=== PATIENT | female | born 1940 | race Caucasian/White ===

== ENCOUNTER 2020-05-26 14:10 | Emergency (ER) | payer OTHER ==
--- OUTSIDE RECORDS SUMMARY | 2020-05-26 14:12 | XMS REPORT | Continuity of Care Document ---
:1940 Author Organization [facility] t Address [address] [place] [address] Care Team Providers Name Role Phone Unavailable Unavailable Unavailable Problems This patient has no known problems. Allergies, Adverse Reactions, Alerts This patient has no known allergies or adverse reactions. Medications Ordered Filled Start Stop Current Ordering Indication Dosage Frequency Signature Comments Components Source Medication Medication Date Date Medication? Clinician (SIG) Name Name Amlodipine Amlodipine Yes Jes [address] [facility] Besylate Besylate [facility] Nasonex Nasonex Yes Jes [address] [facility] in each [facility] Zantac Zantac Yes Jes [address] [facility] bedtime [facility] Tessalon Tessalon Yes Jes [address] [facility] as [facility] Vitamin D3 Vitamin D3 Yes Jes [address] [facility] (otc) [facility] Vitamin B Vitamin B Yes Jes not [facility] 12 12 [facility] defined [facility] Lisinopril Lisinopril Yes Jes [address] [facility] Zina Zina Yes Jes not [facility] defined [facility] Promethazin Promethazin Yes Jes [address] [facility] e-DM e-DM [facility] needed [facility] Hydrochloro Hydrochloro Yes Jes [address] [facility] thiazide thiazide [facility] in the [facility] Zoloft Zoloft Yes Jes [address] [facility] Protonix Protonix Yes Jes [address] [facility] Metoprolol Metoprolol Yes Jes [address] [facility] Tartrate Tartrate [facility] with food [facility] Zestoretic Zestoretic Yes Jes [address] [facility] Atorvastati Atorvastati Yes Jes [address] [facility] n Calcium n Calcium [facility] 81 Aspir-81 Yes Jes [address] [facility] Xarelto Xarelto Yes Jes [address] [facility] with food [facility] Astelin Astelin Yes Jse [address] [facility] each [facility] Fenofibrate Fenofibrate Yes Jes [address] [facility] with food [facility] Amoxicillin Amoxicillin Yes Jes not [facility] -Pot -Pot [facility] defined [facility] Clavulan[facility] Losartan Losartan Yes Jes [address] Potassium Potassium [facility] Pravastatin Pravastatin Yes Jes [address] [facility] Sodium Sodium [facility] Prozac Prozac Yes Jes [facility] ProAir HFA ProAir HFA Yes Jes [address] [facility] needed [facility] Procedures This patient has no known procedures. Encounters Start End Encounter Admission Attending Care Care Encounter Source Date/Time Date/Time Type Type Clinicians Facility Department ID 2019-11-27 2019-11-27 Outpatient [facility] [id number] [facility] 2019-09-16 2019-09-16 [facility] [id number] [facility] 23:29[facility]00 23:29:00 t [facility] 2019-09-12 2019-09-12 [facility] [id number] [facility] 23:44:00 23:44:00 t [facility] 2019-09-11 2019-09-11 [facility] [id number] [facility] 08:40:00 08:40:00 t [facility] 2019-08-04 2019-08-04 [facility] [id number] [facility] 13:59:00 13:59:00 t [facility] 2019-06-08 2019-06-08 [facility] [id number] [facility] 14:15:00 14:15:00 t [facility] 2019-03-11 2019-03-11 [facility] [id number] [facility] 11:30:00 11:30:00 t [facility] 2018-06-18 2018-06-18 [facility] [id number] [facility] 15:00:00 15:00:00 t [facility] Medicine Medicine Outpati [facility] Clinics 2018-06-13 2018-06-13 [facility] [id number] [facility] 00[facility]23:00 00:23:00 t [facility] Medicine Medicine Outpat[facility] Clin[facility] 2018-05-19 2018-05-19 [facility] [id number] [facility] 17:31:00 17:31:00 t [facility] 2018-05-19 2018-05-19 [facility] [id number] [facility] 10[facility]00:00 10:00:00 t [facility] 2018-03-07 2018-03-07 [facility] [id number] [facility] 14[facility]00:00 14:00:00 [facility] 2018-02-06 2018-02-06 [facility] [id number] [facility] 10:45:00 10:45:00 [facility] 2017-11-18 2017-11-18 [facility] [id number] [facility] 14:02:00 14:02:00 [facility] 2017-10-24 2017-10-24 [facility] [id number] [facility] 16:00:00 16:00:00 [facility] 2017-08-19 2017-08-19 [facility] [id number] [facility] 11:54:00 11:54:00 [facility] 2017-07-17 2017-07-17 [facility] [id number] [facility] 10:49:00 10:49:00 [facility] 2017-07-10 2017-07-10 [facility] [id number] [facility] 13:46:00 13:46:00 [facility] 2017-07-09 2017-07-09 [facility] [id number] [facility] 09:30:00 09:30:00 [facility] Results This patient has no known results.
--- NOTE | 2020-05-26 15:39 | RAD REPORT ---
EXAM DESCRIPTION: RAD - Foot Left 3 View - 05/26/2020 3:21 pm CLINICAL HISTORY: Left Foot pain status post injury FINDINGS: No fracture or dislocation is seen. Large calcaneal spurs
--- NOTE | 2020-05-26 16:26 | ER ---
Nurse's Notes [facility] Name: Gladys Kapoor Age: 80 yrs Sex: Female : 1940 Arrival Date: 05/26/2020 Time: 14:14 Bed 25 Private MD: Diagnosis: Strain of intrinsic muscle and tendon at ankle and foot level Presentation: 05/26 14:33 Chief complaint: Patient states: L foot pain continues from a fall 3 weeks ago. ll1 Coronavirus screen: Client denies travel out of the [place] in the last 14 days. At this time, the client does not indicate any symptoms associated with coronavirus-19. Ebola Screen: Patient denies travel to an Ebola-affected area in the 21 days before illness onset. Initial Sepsis Screen: Does the patient meet any 2 criteria? No. Patient's initial sepsis screen is negative. Does the patient have a suspected source of infection? Yes: Bone or joint infection. Risk Assessment: Do you want to hurt yourself or someone else? Patient reports no desire to harm self or others. Onset of symptoms was May 05, 2020. 14:33 Method Of Arrival: Ambulatory ll1 14:33 Acuity: TATA 4 ll1 Historical: - Allergies: 14:34 No Known Allergies; ll1 - PMHx: 14:34 Depression; Hypertension; Ulcers; ll1 14:35 A fib; ll1 - PSHx: 14:34 Hysterectomy; Cholecystectomy; Knee surgery; ll1 - Immunization history:: Flu vaccine is not up to date. - Social history:: Smoking status: Patient denies any tobacco usage or history of. Screenin:20 Abuse screen: Denies threats or abuse. Denies injuries from another. Nutritional ss screening: No deficits noted. Tuberculosis screening: Never had TB. Fall Risk None identified. Assessment: 16:20 General: Appears in no apparent distress. comfortable, Behavior is calm, cooperative, ss Denies fever, feeling ill, fatigue, chills. Pain: Complains of pain in left ankle Pain currently is 4 out of 10 on a pain scale. Quality of pain is described as aching, Is continuous. Neuro: Level of Consciousness is awake, alert, obeys commands, Oriented to person, place, time, situation. Cardiovascular: Capillary refill < 3 seconds is brisk in bilateral fingers. Respiratory: Airway is patent Respiratory effort is even, unlabored, Respiratory pattern is regular, symmetrical. GI: Abdomen is non-distended. : No signs and/or symptoms were reported regarding the genitourinary system. EENT: Nares are clear Oral mucosa is moist. Throat is clear. Derm: Skin is intact, is healthy with good turgor, Skin is dry, Skin is pink, warm \T\ dry. normal. Musculoskeletal: Circulation, motion, and sensation intact. Range of motion: intact in all extremities, Swelling absent. Vital Signs: 14:33 BP 166 / 70; Pulse 54; Resp 17; Temp 97.6; Pulse Ox 99% ; Weight 84.82 kg; Height 5 ft. ll1 5 in. (165.10 cm); Pain 5/10; 16:12 BP 193 / 75 LA Sitting (auto/reg); Pulse 50; Pulse Ox 100% on R/A; Pain 4/10; jp3 14:33 Body Mass Index 31.12 (84.82 kg, 165.10 cm) ll1 ED Course: 14:14 Patient arrived in ED. ds1 14:34 Triage completed. ll1 14:35 Arm band placed on. ll1 15:21 Foot Left 3 View XRAY In Process Unspecified. EDMS 16:05 Goldy Palafox PA is PHCP. [facility] 16:05 Sriram Lanza MD is Attending Physician. [facility] 16:16 Jasmeet wrap to left ankle. jp3 16:20 Patient has correct armband on for positive identification. Bed in low position. ss 16:20 No provider procedures requiring assistance completed. Patient did not have IV access ss during this emergency room visit. 16:25 Malick Silva DPM is Referral Physician. [facility] 16:41 Cristina Rodriguez RN is Primary Nurse. ss Administered Medications: No medications were administered Outcome: 16:20 Discharged to home ambulatory. ss 16:20 Condition: good 16:20 Discharge instructions given to patient, Instructed on discharge instructions, follow up and referral plans. Demonstrated understanding of instructions, follow-up care. 16:25 Discharge ordered by . [facility] 16:43 Patient left the ED. ss Signatures: Dispatcher [employer] EDMS Goldy Palafox PA PA Shira Foster ds1 Cristina Rodriguez RN RN ss Aryan Freire jp3 Ramona Angulo, RN RN ll1
--- NOTE | 2020-05-26 16:26 | EDPHYS ---
Physician Documentation [facility] Name: Gladys Kapoor Age: 80 yrs Sex: Female : 1940 Arrival Date: 05/26/2020 Time: 14:14 Bed 25 Private MD: ED Physician Sriram Lanza HPI: 05/26 16:20 This 80 yrs old Female presents to ER via Ambulatory with complaints of Fall jmm Injury. 16:20 The patient presents with an injury, pain. Onset: The symptoms/episode began/occurred jmm acutely, 3 week(s) ago. Modifying factors: The symptoms are alleviated by nothing, the symptoms are aggravated by nothing. Associated signs and symptoms: Pertinent positives: swelling. Patient states she had a fall 3 weeks ago. Continues to have swelling to the left foot. Patient denies calf swelling, sob, cp. . Historical: - Allergies: 14:34 No Known Allergies; ll1 - PMHx: 14:34 Depression; Hypertension; Ulcers; ll1 14:35 A fib; ll1 - PSHx: 14:34 Hysterectomy; Cholecystectomy; Knee surgery; ll1 - Immunization history:: Flu vaccine is not up to date. - Social history:: Smoking status: Patient denies any tobacco usage or history of. ROS: 16:20 Constitutional: Negative for fever, chills, and weight loss, Cardiovascular: Negative jmm for chest pain, palpitations, and edema, Respiratory: Negative for shortness of breath, cough, wheezing, and pleuritic chest pain. 16:20 MS/extremity: Positive for swelling. 16:20 All other systems are negative. Exam: 16:20 Constitutional: This is a well developed, well nourished patient who is awake, alert, jmm and in no acute distress. Head/Face: atraumatic. Eyes: EOMI, no conjunctival erythema appreciated ENT: Moist Mucus Membranes Neck: Trachea midline, Supple Chest/axilla: Normal chest wall appearance and motion. Cardiovascular: Regular rate and rhythm. No edema appreciated Respiratory: Normal respirations, no respiratory distress appreciated Abdomen/GI: Non distended, soft Back: Normal ROM Skin: General appearance color normal 16:20 Musculoskeletal/extremity: swelling noted to the left foot, pain on dorsal surface, full dorsalis pulse, no swelling noted to the left calf. 16:20 Skin: Appearance: Color: normal in color. 16:20 Neuro: Orientation: is normal, Mentation: is normal, Memory: is normal. 16:20 Psych: Behavior/mood is pleasant, cooperative. Vital Signs: 14:33 BP 166 / 70; Pulse 54; Resp 17; Temp 97.6; Pulse Ox 99% ; Weight 84.82 kg; Height 5 ft. ll1 5 in. (165.10 cm); Pain 5/10; 16:12 BP 193 / 75 LA Sitting (auto/reg); Pulse 50; Pulse Ox 100% on R/A; Pain 4/10; jp3 14:33 Body Mass Index 31.12 (84.82 kg, 165.10 cm) ll1 MDM: 16:17 Patient medically screened. [facility] 16:23 Data reviewed: vital signs, nurses notes. Counseling: I had a detailed discussion with wayne the patient and/or guardian regarding: the historical points, exam findings, and any diagnostic results supporting the discharge/admit diagnosis, radiology results, the need for outpatient follow up, to return to the emergency department if symptoms worsen or persist or if there are any questions or concerns that arise at home. ED course: Xray is negative. Patient is advised to follow up with podiatry. Otherwise given strict return precautions if she develops calf swelling, cp, or sob. Patient understood and agrees with the plan of care. . 05/26 14:43 Order name: Foot Left 3 View XRAY; Complete Time: 16:05 kb Administered Medications: No medications were administered Disposition: 05/27 06:47 Co-signature as Attending Physician, Sriram Lanza MD I agree with the assessment and kdr plan of care. Disposition: 05/26/20 16:25 Discharged to Home. Impression: Strain of intrinsic muscle and tendon at ankle and foot level. - Condition is Stable. - Discharge Instructions: Foot Sprain. - Medication Reconciliation Form, Thank You Letter, Antibiotic Education, Prescription Opioid Use form. - Follow up: Malick Silva DPM; When: 2 - 3 days; Reason: Recheck today's complaints, Continuance of care, Re-evaluation by your physician. Signatures: Dispatcher [employer] EDMS Sriram Lanza MD MD kdr Mickail, Joel, PA PA jmm Smirch, Shelby, RN RN ss Ramona Angulo RN RN ll1 Corrections: (The following items were deleted from the chart) 05/26 16:43 16:25 05/26/2020 16:25 Discharged to Home. Impression: Strain of intrinsic muscle and ss tendon at ankle and foot level. Condition is Stable. Forms are Medication Reconciliation Form, Thank You Letter, Antibiotic Education, Prescription Opioid Use. Follow up: Dr. Malick Silva; When: 2 - 3 days; Reason: Recheck today's complaints, Continuance of care, Re-evaluation by your physician. wayne
[2020-05-26 16:47] VITALS: TEMP 97.6
[2020-05-26 16:49] VITALS: BP 193/75; O2SAT 100
== END 2020-05-26 16:43 | disposition home or self-care (01) ==
LOC: ER 14:10
DX: S96.212A Strain of intrinsic muscle and tendon at ankle and foot level, left foot, initial encounter (principal); W19.XXXA Unspecified fall, initial encounter; Y93.9 Activity, unspecified; Y92.9 Unspecified place or not applicable; I10 Essential (primary) hypertension
CPT/HCPCS: 99283

== ENCOUNTER 2022-01-08 01:48 | Observation (INO) | payer OTHER ==
--- OUTSIDE RECORDS SUMMARY | 2022-01-08 01:51 | XMS REPORT | Clinical Summary ---
:1940 Author Organization [facility] MD [facility] Center Address [address] [place] [address] Care Team Providers Name Role Phone Bj Davenport MD Unavailable Israel Haque MD Primary Care Provider Allergies No known active allergies Medications Medication Sig Dispensed Refills Start Date End Date Status hydroCHLOROthiazide Take 1 tablet 0 07/01/2020 Active (HYDRODIURIL) 12.5 mg by mouth tablet daily. metoprolol tartrate Take 25 mg by 0 11/08/2018 Active (LOPRESSOR) 25 mg tablet mouth daily. hydrALAZINE (APRESOLINE) Take 1 tablet 0 08/22/2020 Active 10 mg tablet by mouth twice daily. rosuvastatin (CRESTOR) 20 Take 20 mg by 0 04/04/2020 Active mg tablet mouth daily. traMADol (ULTRAM) 50 mg Take 1 tablet 0 07/07/2020 Active tablet by mouth as needed. sertraline (ZOLOFT) 25 mg Take 1 tablet 0 07/10/2020 Active tablet by mouth daily. amLODIPine (NORVASC) 5 mg Take 1 tablet 0 06/20/2020 Active tablet by mouth daily. famotidine (PEPCID) 40 mg Take 1 tablet 0 06/20/2020 Active tablet by mouth daily. acetaminophen (Tylenol Take 650 mg 0 Active Arthritis Pain) 650 MG CR by mouth tablet every 8 (eight) hours as needed for mild pain. ibuprofen 200 mg cap Take 3 0 Active capsules by mouth as needed. loperamide (Imodium A-D) Take 2 mg by 0 Active 2 mg tablet mouth daily. pancrelipase (Creon) Take by mouth 240 capsule 2 08/26/2020 Active 12,000 units-38,000 1-2 with units-60,000 units meals, 1 with capsuleIndications: Cyst snacks. of pancreas, Exocrine pancreatic insufficiency pancrelipase (Creon) Take 1-2 po 240 capsule 11 08/31/2020 Active 12,000 units-38,000 with meals, 1 units-60,000 units po with capsuleIndications: Cyst snacks of pancreas, Exocrine pancreatic insufficiency losartan (COZAAR) 100 mg Take 100 mg 0 04/01/2020 tablet by mouth 2 daily. 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 Chronic kidney disease Hypertension Arrhythmia Gastroesophageal reflux disease Anemia Social History Tobacco Use Types Packs/Day Years Used Date Smoking Tobacco: Former Cigarettes 10 Smokeless Tobacco: Never Comments: social use Alcohol Use Standard Drinks/Week Comments Yes 7 (1 standard drink = 0.6 oz pure alcoho l) Sex Assigned at Date Recorded Not on file Job Start Date Occupation Industry Not on file Not on file Not on file Obstetrics History Last Filed Vital Signs Not on file Plan of Treatment Health Maintenance Due Date Last Done Comments COVID-19 Vaccination (#1) 1940 Results Not on fileafter 01/08/2021 Insurance Payer Benefit Plan / Subscriber ID Effective Dates Phone Addre ss Type Group HUMANA HUMANA CHOICE [id number] 2020-Presen [address] [address] Medicare MEDICARE [place] [address] Care Teams 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
--- OUTSIDE RECORDS SUMMARY | 2022-01-08 01:52 | XMS REPORT | Continuity of Care Document ---
:1940 Author Organization [facility] t Address [address] [place] [address] Care Team Providers Name Role Phone Elisha Haque MD Primary Care Physician Vickey Seymour Attending Clinician Unavailable Jes Singh Attending Clinician Unavailable SYSTEM, PROVIDER NOT IN Attending Clinician Unavailable Robbie Choi Attending Clinician Unavailable Bogdan Perkins Attending Clinician Unavailable ELISHA HAQUE Attending Clinician Unavailable CURTIS STEPHEN Attending Clinician Unavailable Robbie Choi Admitting Clinician Unavailable Payers Payer Name Policy Type Policy Number Effective Date Expiration Date S ource [employer] MEDICARE C1 [id number] Common Sp shirlene [facility] Problems Condition Condition Condition Status Onset Resolution Last Treating Co mments Source Name Details Category Date Date Treatment Clinician Date 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 7-13 ity of 00:00: [place] 00 MD [facility] Chronic Chronic Problem Active Common diarrhea diarrhea [facility] Heel pain Heel pain Problem Active Com mon [facility] [id number] Muscle Problem Active Common cramps [facility] Hyperlipid Hyperlipem Problem Active C ommon aemia ia [facility] Gastroesop GERD Problem Active Commo n hageal (gastroeso Spirit reflux [facility] disease reflux St disease) [facility] Peripheral Peripheral Problem Active C ommon edema edema [facility] [id number] Elevated Problem Active Commo n blood uric [facility] acid level [facility] [id number] Serum Problem Active Common carbon [facility] dioxide - CHI decreased [facility] [id number] Elevated Problem Active Comm on LFTs [facility] [id number] Abdominal Problem Active Comm on pain, Spirit unspecifie - [facility]I d [facility] Atrial Atrial Problem Active Common fibrillati fibrillati Sp shirlene on on [facility] 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 [facility] Seasonal Seasonal Problem Active Commo n allergy allergies [facility] [id number] Hypersomni Problem Active Com mon a [facility] [id number] History of Problem Active Co mmon atrial Spirit fibrillati - [facility]I on [facility] [id number] Fatigue, Problem Active Commo n unspecifie Spirit d type [facility] [id number] Hyperglyce Problem Active Com mon jacklyn [facility] [id number] Low back Problem Active Comm on pain Spirit without - [facility] sciatica, St unspecifie [facility] d back Medical pain Center laterality , unspecifie d chronicity Knee pain Knee pain Problem Active Com mon Spirit [facility] [id number] Snoring Problem Active Common [facility] Rash Rash Problem Active Common [facility] [id number] Constipati Problem Active Com mon on, Spirit unspecifie - [facility] Vitamin D Vitamin D Problem Active Com mon deficiency deficiency Sp shirlene - [facility] [id number] Depression Problem Active Co mmon screening [facility] Shoulder Shoulder Problem Active Commo n pain pain [facility] [id number] Essential Problem Active Comm on hypertensi Spirit on [facility] Skin Skin Problem Active Common cancer cancer Spirit [facility] [id number] Hyperchlor Problem Active Com mon emia [facility] [id number] Stage 4 Problem Active Commo n chronic Spirit kidney - CHI disease [facility] [id number] Hyperkalem Problem Active Com mon ia [facility] Imaging Abnormal Problem Active Common result findings Spirit abnormal on [facility] diagnostic St imaging of 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 [facility] [id number] History of Problem Active Co mmon skin Spirit cancer [facility] [id number] Cataract Problem Active Commo n of both Spirit eyes, [facility] unspecifie [facility] cataract [facility] Allergies, Adverse Reactions, Alerts Allergy Allergy Status Severity Reaction(s) Onset Inactive Treating Comm ents Source Name Type Date Date Clinician No Known DA Active U 2021-02 [facility] Allergie 0-31 Clear s 00:00: Carter 00 [facility] Social History Social Habit Start Date Stop Date Quantity Comments Source History of Former Smoker Common Spir it - Tobacco Use [facility] Alcohol intake 2020-09-05 2020-09-05 Current drinker Unive rsity of 00:00:00 00:00:00 of alcohol [facility] Tobacco Comment 2020-08-26 2020-08-26 social use Universit y of 00:00:00 00:00:00 [facility] Tobacco use and 2020-08-26 2020-08-26 Smokeless tobacco Un iversity of exposure 00:00:00 00:00:00 non-user [facility] Sex Assigned At [birth year] Universit y of 00:00:00 00:00:00 [facility] Smoking Status Start Date Stop Date Source Former Smoker 2019-09-12 00:00:00 2019-09-12 00:00:00 Common S pirit [facility] Medications Ordered Filled Start Stop Current Ordering Indication Dosage Frequency Signature Comments Components Source Medication Medication Date Date Medication? Clinician (SIG) Name Name pancrelipas Yes Exocrine Take 1-2 Univers e (Creon) 7-21 pancreatic po with i ty of 12,000 00:00: insufficien meals, 1 [place] units-38,00 00 cy po with MD 0 snacks Anderso units-60,00 n 0 units Cancer capsule Center pancrelipas Yes Exocrine Take 1-2 Univers e (Creon) 7-21 pancreatic po with i ty of 12,000 00:00: insufficien meals, 1 [place] units-38,00 00 cy po with MD 0 snacks Anderso units-60,00 n 0 units Cancer capsule Center ibuprofen Yes 3{capsu Take 3 Uni vers 200 mg cap 7-16 le} capsules ity o f 08:31: by mouth [place] 49 as needed. MD Rico ortega [facility] loperamide Yes 2mg Take 2 mg Un ruthann (Imodium 7-16 by mouth ity of A-D) 2 mg 08:31: daily. Tanja tablet 49 MD Rico ortega [facility] ibuprofen Yes 3{capsu Take 3 Uni vers 200 mg cap 7-16 le} capsules ity o f 08:31: by mouth [place] 49 as needed. MD Rico ortega [facility] loperamide Yes 2mg Take 2 mg Un ruthann (Imodium 7-16 by mouth ity of A-D) 2 mg 08:31: daily. [place] tablet 49 MD Rico ortega [facility] acetaminoph Yes 650mg Take 650 U nivers en (Tylenol 7-16 mg by ity of Arthritis 08:31: mouth [place] Pain) 650 48 every 8 MD MG CR (eight) Anderso tablet hours as n needed for Cancer mild pain. [facility] acetaminoph Yes 650mg Take 650 U nivers en (Tylenol 7-16 mg by ity of Arthritis 08:31: mouth [place] Pain) 650 48 every 8 MD MG CR (eight) Anderso tablet hours as n [facility] Exocrine Take by Univers e (Creon) 7-16 pancreatic mouth 1-2 ity of 12,000 00:00: [place] units-38,00 00 cy meals, 1 MD 0 with Anderso units-60,00 snacks. n 0 units Cancer capsule Center pancrelipas Yes Exocrine Take by Univers e (Creon) 7-16 pancreatic mouth 1-2 ity of 12,000 00:00: insufficien [place] units-38,00 00 cy meals, 1 MD 0 with Anderso units-60,00 snacks. n 0 units [address] [facility] hydrALAZINE Yes 1{tbl} Take 1 Un ruthann (APRESOLINE 7-12 tablet by ity of ) 10 mg 00:00: mouth [place] tablet 00 twice MD daily. [facility] hydrALAZINE Yes 1{tbl} Take 1 Un ruthann (APRESOLINE 7-12 tablet by ity of ) 10 mg 00:00: mouth [place] tablet 00 twice MD daily. [facility] sertraline Yes 1{tbl} Take 1 Uni vers (ZOLOFT) 25 5-30 tablet by ity of mg tablet 00:00: mouth [place] 00 daily. MD Gómez [facility] sertraline Yes 1{tbl} Take 1 Uni vers (ZOLOFT) 25 5-30 tablet by ity of mg tablet 00:00: mouth [place] 00 daily. MD Rico ortega [facility] traMADol Yes 1{tbl} Take 1 Unive rs (ULTRAM) 50 5-27 tablet by ity of mg tablet 00:00: [place] 00 needed. MD Rico ortega [facility] traMADol Yes 1{tbl} Take 1 Unive rs (ULTRAM) 50 5-27 tablet by ity of mg tablet 00:00: mouth [place] 00 needed. MD Gómez [facility] hydroCHLORO Yes 1{tbl} Take 1 Un ruthann thiazide 5-21 tablet by ity of (HYDRODIURI 00:00: mouth [place] L) 12.5 mg 00 daily. MD maddie ortega [facility] hydroCHLORO Yes 1{tbl} Take 1 Un ruthann thiazide 5-21 tablet by ity of (HYDRODIURI 00:00: mouth [place] L) 12.5 mg 00 daily. MD maddie ortega [facility] amLODIPine Yes 1{tbl} Take 1 Uni vers (NORVASC) 5 5-10 tablet by ity of mg tablet 00:00: mouth [place] 00 daily. MD Rico ortega [facility] famotidine Yes 1{tbl} Take 1 Uni vers (PEPCID) 40 5-10 tablet by ity of mg tablet 00:00: mouth [place] 00 daily. MD Rico ortega [facility] amLODIPine Yes 1{tbl} Take 1 Uni vers (NORVASC) 5 5-10 tablet by ity of mg tablet 00:00: mouth [place] 00 daily. MD Rico ortega [facility] famotidine Yes 1{tbl} Take 1 Uni vers (PEPCID) 40 5-10 tablet by ity of mg tablet 00:00: mouth [place] 00 daily. MD Rico ortega [facility] rosuvastati Yes 20mg Take 20 mg Univers n (CRESTOR) 2-22 by mouth ity of 20 mg 00:00: daily. [place] tablet 00 MD Rico ortega [facility] rosuvastati Yes 20mg Take 20 mg Univers n (CRESTOR) 2-22 by mouth ity of 20 mg 00:00: daily. [place] tablet 00 MD Rico ortega [facility] losartan 2021- No 100mg Take 100 Uni vers (COZAAR) 2-19 02-20 mg by ity of 100 mg 00:00: 05:59 mouth [place] tablet 00 :00 daily. MD Rico ortega [facility] losartan 2021- No 100mg Take 100 Uni vers (COZAAR) 2-19 02-20 mg by ity of 100 mg 00:00: 05:59 mouth [place] tablet 00 :00 daily. MD Rico ortega [facility] Sertraline Sertraline No Sertraline HCl 25 MG HCl 25 MG 1-29 HCl 25 MG 00:00: 00 metoprolol Yes 25mg Take 25 mg U nivers tartrate 9-28 by mouth ity of (LOPRESSOR) 00:00: [place]. [place] 25 mg 00 MD tablet [facility] metoprolol 2019-0 Yes 25mg Take 25 mg U nivers tartrate 9-28 by mouth ity of (LOPRESSOR) 00:00[place]. [place] 25 mg 00 MD tablet [facility] Amlodipine Amlodipine Yes Jes 1 tablet Common Besylate Besylate Millender Sp shirlene [facility] Nasonex Nasonex Yes Jes 2 sprays Comm on Millender in each Spirit nostril [facility] Zantac Zantac Yes Jes 1 tablet Common Millender at bedtime Spir it [facility] Tessalon Tessalon Yes Jes 1 capsule C ommon Perles Perles [place] as needed S pirit [facility] Vitamin D3 Vitamin D3 Yes Jes 1 capsule Common Millender (otc) [facility] Vitamin B Vitamin B Yes Jes not Comm on 01 22 Millender defined [facility] Lisinopril Lisinopril Yes Jes 1 tablet Common Millender [facility] Zina Zina Yes Jes not Common Millender defined [facility] Promethazin Promethazin Yes Jes 5 ml as Common e-DM e-DM Millender needed [facility] Hydrochloro Hydrochloro Yes Jes 1 tablet Common thiazide thiazide Millender in the Spirit morning [facility] Zoloft Zoloft Yes Jes 1 tablet Common Millender [facility] Protonix Protonix Yes Jes 1 tablet Co mmon Millender [facility] Metoprolol Metoprolol Yes Jes 1 tablet Common Tartrate Tartrate Millender with food [facility] Zestoretic Zestoretic Yes Jes 1 tablet Common Millender [facility] Atorvastati Atorvastati Yes Jes 1 tablet Common n Calcium n Calcium Millender [facility] Aspir-81 Aspir-81 Yes Jes 1 tablet Co mmon Millender [facility] Xarelto Xarelto Yes Jes 1 tablet Comm on Millender [facility] Astelin Astelin Yes Jes 1 puff in Com mon Millender each Spirit nostril [facility] Fenofibrate Fenofibrate Yes Jes 1 tablet Common Millender with food [facility] Amoxicillin Amoxicillin Yes Jes not Common -Pot -Pot Millender defined Spirit Clavulanate Clavulanate [facility] Losartan Losartan Yes Jes 1 tablet Co mmon Potassium Potassium Millender [facility] Pravastatin Pravastatin Yes Jes 1 tablet Common Sodium Sodium Millender [facility] Prozac Prozac Yes Jes 1 capsule Commo n Millender [facility] ProAir HFA ProAir HFA Yes Jes 2 puffs as Common Millender needed [facility] Nasonex 50 Nasonex 50 No 2{spray QD Nasonex 50 MCG/ACT MCG/ACT s_in_ea MCG/ACT ch_nost ril} Astelin 137 Astelin 137 No 1{puff_ BID Astelin MCG/SPRAY MCG/SPRAY in_each 137 _nostri MCG/SPRAY l} Zina 60 Zina 60 No Zina 60 MG MG MG Atorvastati Atorvastati No 1{table Atorvastat n Calcium n Calcium t} in Calcium 20 MG 20 MG 20 MG Xarelto 10 Xarelto 10 No 1{table QD Xarelto 10 MG MG t_with_ MG food} Zantac 150 Zantac 150 No 1{table QD Zantac 150 MG MG t_at_be MG dtime} Lisinopril Lisinopril No 1{table QD Lisinopril 20 mg 20 mg t} 20 mg Losartan Losartan No 1{table QD Losartan Potassium Potassium t} Potassium 100 MG 100 MG 100 MG Vitamin B Vitamin B No Vitamin B 12 12 12 Tessalon Tessalon No 1{capsu TID Tessalon Perles 100 Perles 100 le_as_n Perles 100 MG MG eeded} MG Pravastatin Pravastatin No 1{table QD Pravastati Sodium 80 Sodium 80 t} n Sodium MG MG 80 MG Zestoretic Zestoretic No 1{table QD Zestoretic 20-25 MG 20-25 MG t} 20-25 MG Zoloft 25 Zoloft 25 No 1{table Zoloft 25 MG MG t} MG Hydrochloro Hydrochloro No 1{table QD Hydrochlor thiazide 25 thiazide 25 t_in_th othiazide MG MG e_morni 25 MG ng} Amlodipine Amlodipine No 1{table QD Amlodipine Besylate 10 Besylate 10 t} Besylate MG MG 10 MG Fenofibrate Fenofibrate No 1{table QD Fenofibrat 160 MG 160 MG t_with_ e 160 MG food} Protonix 20 Protonix 20 No 1{table QD Protonix MG MG t} 20 MG Prozac 40 Prozac 40 No 1{capsu QD Prozac 40 MG MG le} MG Aspir-81 81 Aspir-81 81 No 1{table QD Aspir-81 MG MG t} 81 MG Metoprolol Metoprolol No 1{table BID Metoprolol Tartrate 25 Tartrate 25 t_with_ Tartrate MG MG food} 25 MG Vitamin D3 Vitamin D3 No QD Vitamin D3 5000 UNIT 5000 UNIT 5000 UNIT ProAir HFA ProAir HFA No 2{puffs QID ProAir HFA 108 (90 108 (90 _as_nee 108 (90 Base) Base) ded} Base) MCG/ACT MCG/ACT MCG/ACT Promethazin Promethazin No 5{ml_as QID Promethazi e-DM e-DM _needed ne-DM 6.25-15 6.25-15 } 6.25-15 MG/5ML MG/5ML MG/5ML Amoxicillin Amoxicillin No Amoxicilli -Pot -Pot n-Pot Clavulanate Clavulanate Clavulanat 500-125 MG 500-125 MG e 500-125 MG Immunizations Ordered Immunization Filled Immunization Date Status Commen ts Source Name Name FLUZONE HIGH DOSE FLUZONE HIGH DOSE 2017-12-10 Completed Common [facility] OVER 65 OVER 65 13:18:00 - [facility] Procedures Procedure Date / Time Performed Performing Clinician Carlita blanton [id number] 2021-12-13 00:00:00 ELIZABETH Artis [facility] [id number] 2021-12-13 00:00:00 ELIZABETH Artis [facility] [id number] 2021-12-13 00:00:00 [facility] Plan of Care Planned Activity Planned Date Details Comments Source Future Scheduled 2021-09-07 COVID-19 Vaccination [facility] [place] Test 14:54:32 (#1) [code = COVID-19 [facility] (#1)] Center Future Scheduled 2021-09-07 COVID-19 Vaccination [facility] [place] Test 14:54:32 (#1) [code = COVID-19 MD [facility] Vaccination (#1)] Center Encounters Start End Encounter Admission Attending Care Care Encounter Source Date/Time Date/Time Type Type Clinicians Facility Department ID 2021-03-08 Outpatient STLMLC STLMLC [id number] Common 12:16:37 [id number] [facility] 2021-03-08 Outpatient Vickey Seymour STLMLC STLMLC [id number] Common 12:07:59 [id number] [facility] 2021-03-08 Outpatient Vickey Seymour STLMLC STLMLC [id number] Common 11:58:38 [id number] [facility] 2021-03-08 Outpatient Millender, STLMLC STLMLC [id number] Common 11:58:21 Jes 10447 [facility] 2021-03-08 Outpatient Millender, STLMLC STLMLC [id number] Common 11:34:00 Jes 14157 [facility] 2021-03-08 Outpatient Millender, STLMLC STLMLC [id number] Common 11:24:22 Jes [id number] [facility] 2021-03-08 Outpatient Millender, STLMLC STLMLC [id number] Common 11:04:13 Jes 22920 [facility] 2021-03-08 Outpatient Millender, STLMLC STLMLC [id number] Common 11:03:49 Jes [id number] [facility] 2021-03-08 Outpatient Millender, STLMLC STLMLC [id number] Common 11:03:08 Jes [id number] [facility] 2020-07-14 Outpatient SYSTEM, [facility] SHAH[facility] [id number] 11:39:19 LUISNAA ortega 2021-12-13 2021-12-14 Inpatient EL JAMEE ChoiCL INTE.02 [id number] [facility] 16:26:00 13:30:[address] 2021-08-22 2021-08-22 Orders Domenica, [id number] Univers 00:00:00 00:00:00 Only Bogdan Albarado [id number] it y of [id number] [place] .[id number] MD .8 [facility] 2021-08-22 2021-08-22 Orders Domenica, [id number] Univers 00:00:00 00:00:00 Only Bogdan Albarado [id number] it y of [id number] [place] .[id number] MD .8 [facility] 2020-09-15 2020-09-15 Outpatient EL RODDY, MDA MDA [id number] 10:04:29 10:04:29 ELISHA ortega 2020-08-26 2020-08-26 Outpatient EL RODDY, MDA MDA [id number] 07:58:15 09:28:42 ELISHA ortega 2020-08-25 2020-08-25 Outpatient EL ZAFAR, MDA MDA [id number] 14:50:42 23:59:00 CURTIS ortega 2020-08-25 2020-08-25 Outpatient EL STEPHEN, MDA MDA [id number] 15:24:26 15:24:26 CURTIS ortega 2020-08-25 2020-08-25 Outpatient EL MDA MDA [id number] 14:40:12 14:40:49 Enrique ortega 2020-08-04 2020-08-04 Outpatient EL MDA MDA [id number] 12:38:54 12:38:54 Enrique ortega 2020-08-04 2020-08-04 Outpatient EL MDA MDA [id number] 12:38:50 12:38:50 Enrique ortega 2020-08-04 2020-08-04 Outpatient EL MDA MDA [id number] 12:38:45 12:38:45 Enrique o n 2019-11-27 2019-11-27 (TEL) STLMLC STLC [id number] Co mmon 00:00:00 00:00:00 [facility] 2019-09-16 2019-09-16 [facility] [id number] Common 23:29:00 23:29:[address] [facility] 2019-09-12 2019-09-12 [facility] [id number] Common 23:44:00 23:44:[address] [facility] 2019-09-11 2019-09-11 [facility] [id number] Common 08:40:00 08:40:[address] [facility] 2019-08-04 2019-08-04 [facility] [id number] Common 13:59:00 13:59:[address] [facility] 2019-06-08 2019-06-08 [facility] [id number] Common 14:15:00 14:15:[address] [facility] 2019-03-11 2019-03-11 [facility] [id number] Common 11:30:00 11:30:[address] [facility] 2018-06-18 2018-06-18 [facility] [id number] Common 15:00:00 15:00:[address] [facility] 2018-06-13 2018-06-13 [facility] [id number] Common 00:23:00 00:23:[address] [facility] 2018-05-19 2018-05-19 [facility] [id number] Common 17:31:00 17:31:[address] [facility] 2018-05-19 2018-05-19 [facility] [id number] Common 10:00:00 10:00:[address] [facility] 2018-03-07 2018-03-07 [facility] [id number] Common 14:00:00 14:00:[address] [facility] 2018-02-06 2018-02-06 Out[facility] [id number] Common 10:45:00 10:45:[address] [facility] 2017-11-18 2017-11-18 [facility] [id number] Common 14:02:00 14:02:[address] [facility] 2017-10-24 2017-10-24 Out[facility] [id number] Common 16:00:00 16:00:[address] [facility] 2017-08-19 2017-08-19 Out[facility] [id number] Common 11:54:00 11:54:[address] [facility] 2017-07-17 2017-07-17 [facility] [id number] Common 10:49:00 10:49:[address] [facility] 2017-07-10 2017-07-10 Out[facility] [id number] Common 13:46:00 13:46:[address] [facility] 2017-07-09 2017-07-09 Out[facility] [id number] Common 09:30:00 09:30:[address] [facility] Results Test Description Test Time Test Comments Results Result Comments Source BASIC METABOLIC PANEL 2021-12-14 07:41:00 Test Item Value Reference Range Interpretation Comme nts SODIUM (test code = NA) 140 mEq/L 134-147 N POTASSIUM (test code = K) 4.9 mEq/L 3.4-5.0 N CHLORIDE (test code = CL) 110 mEq/L 100-108 H CARBON DIOXIDE (test code = CO2) 21 mEq/l 21-33 N ANION GAP (test code = GAP) 14 0-20 N GLUCOSE (test code = GLU) 110 mg/dL 70-110 N BLOOD UREA NITROGEN (test code = 29 mg/dL 7-18 H BUN) GLOMERULAR FILTRATION RATE (test 33.5 70-80 L Units of measure = ml/min/1.73 code = GFR) m2 CREATININE (test code = CREAT) 1.5 mg/dL 0.6-1.3 H CALCIUM (test code = CA) 8.9 mg/dL 8.0-10.5 N CBC W/AUTO [id number] 07:01:00 Test Item Value Reference Range Interpretation Comments WHITE BLOOD CELL (test code = 6.2 x10 3/uL 4.5-11.0 N WBC) RED BLOOD CELL (test code = 3.28 x10 6/uL 3.54-5.02 L RBC) HEMOGLOBIN (test code = HGB) 10.4 g/dL 11.0-15.0 L HEMATOCRIT (test code = HCT) 31.7 % 33.0-45.0 L MEAN CELL VOLUME (test code = 96.6 fL 81.0-99.0 N MCV) MEAN CELL HGB (test code = MCH) 31.7 pg 27.0-33.0 N MEAN CELL HGB CONCETRATION 32.8 g/dL 33.0-37.0 L (test code = MCHC) RED CELL DISTRIBUTION WIDTH CV 12.3 % 11.5-14.5 N (test code = RDW) RED CELL DISTRIBUTION WIDTH SD 43.8 fL 37.0-54.0 N (test code = RDW-SD) PLATELET COUNT (test code = 167 x10 3/uL 150-400 N PLT) MEAN PLATELET VOLUME (test code 10.5 fL 7.0-9.0 H = MPV) NEUTROPHIL % (test code = NT%) 77.1 % 56.0-77.0 H IMMATURE GRANULOCYTE % (test 0.3 % 0.0-2.0 N code = IG%) LYMPHOCYTE % (test code = LY%) 18.7 % 14.0-32.0 N MONOCYTE % (test code = MO%) 3.4 % 4.8-9.0 L EOSINOPHIL % (test code = EO%) 0.2 % 0.3-3.7 L BASOPHIL % (test code = BA%) 0.3 % 0.0-2.0 N NUCLEATED RBC % (test code = 0.0 % 0-0 N NRBC%) NEUTROPHIL # (test code = NT#) 4.74 x10 3/uL 2.0-7.6 N IMMATURE GRANULOCYTE # (test 0.02 x10 3/uL 0.00-0.03 N code = IG#) LYMPHOCYTE # (test code = LY#) 1.15 x10 3/uL 1.0-3.8 N MONOCYTE # (test code = MO#) 0.21 x10 3/uL 0.1-0.8 N EOSINOPHIL # (test code = EO#) 0.01 x10 3/uL 0.0-0.2 N BASOPHIL # (test code = BA#) 0.02 x10 3/uL 0.0-0.2 N NUCLEATED RBC # (test code = 0.00 x10 3/uL 0.0-0.1 N NRBC#) MANUAL DIFF REQUIRED (test code NO = MDIFF) [id number] 15:18:00 Test Item Value Reference Range Interpretation Comments ACT-ISTAT (test code 277 SEC 74-137 H Perform ed by certified = ACTI) 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 [facility] - XR CHEST 1 [id number] 00:00:00 [facility] 1940 Sex: F FAX: Jose Ramon Obrien Ra, MD [phone] [place]: St: ADM FAX: Alan Hickey [phone] Name: LIBERTY MERAZ [facility] :1940 Age/S: 81/F [address] [place], [place] [address]vd Unit #: [id number] Loc: [place] [address] Phys: Alan Hickey Acct: [id number] Dis Date: Status: ADM IN PHONE #: [phone] Exam Date:12/13/20211710 FAX #: [phone] Reason: S/P WATCHMAN EXAMS: CPT CODE: [id number] XR CHEST 1 V 05373 PROCEDURE INFORMATION: Exam: XR Chest Exam date and time: 12/13/2021 4:07 PM Age: 81 years old Clinical indication: Other: S/P watchman TECHNIQUE: Imaging protocol: Radiologic exam of the chest. Views: 1 view. COMPARISON: DX XR CHEST 2 V 12/11/2021 2:57 PM FINDINGS: Lungs: Scattered pleuroparenchymal scarring. No consolidation. Pleural spaces: No pleural effusion. No pneumothorax. Heart/Mediastinum: Heart size is within normal limits. Vasculature is unremarkable. Interval placement of occluder device in the expected region of the left atrial appendage. Bones/joints: No acute osseous abnormalities. IMPRESSION: Interval placement of occluder device in the expected region of the left atrial appendage. No acute cardiopulmonary disease. at 8927 Reported and signed by: Kenny Dozier M.D. CC: Jos eRamon Olivier MD; Alan Hickey Technologist: RT Paul(Mike) Trnscrd Date/Time/By: 12/13/2021 (9420) : By: [email or web address] Orig Print D/T: S: 12/13/2021 (1442) PAGE 1 Signed ReportPREALBUMIN 2021-12-11 18:49:00 Test Item Value Reference Range Interpretation Comments PREALBUMIN (test code = PREALB) 31.2 mg/dL 16.0-40.0 N BASIC METABOLIC [id number] 18:49:00 Test Item Value Reference Range Interpretation Comments SODIUM (test code = NA) 146 mEq/L 134-147 N POTASSIUM (test code = 4.0 mEq/L 3.4-5.0 N K) CHLORIDE (test code = 112 mEq/L 100-108 H CL) CARBON DIOXIDE (test 24 mEq/l 21-33 N code = CO2) ANION GAP (test code = 14 0-20 N GAP) GLUCOSE (test code = 98 mg/dL 70-110 N GLU) BLOOD UREA NITROGEN 33 mg/dL 7-18 H (test code = BUN) GLOMERULAR FILTRATION 39.5 70-80 L Units of measure = RATE (test code = GFR) ml/mi n/1.73 m2 CREATININE (test code = 1.3 mg/dL 0.6-1.3 N CREAT) CALCIUM (test code = 9.8 mg/dL 8.0-10.5 N CA) PROTHROMBIN [id number] 18:34:00 Test Item Value Reference Range Interpretation Comments PROTHROMBIN TIME 17.7 SECONDS 9.3-12.9 H PATIENT (test code = PTP) INTERNATIONAL NORMAL 1.6 0.8-1.2 H TARGET INR BY RATIO (test code = INDICATIO N Indication INR) INR1. Prophylax is of venous thrombos is 2.0 - 3.0 (orthoped ic surgery), Proph ylaxis of venous throm bosis (other than hig h-risk surgery), Treat ment of Deep Vein Thrombosis/Pulm onary Embolism, Preve ntion of systemic emb olism - Tissue heart va lves, Acute Myocardia l Infarction (to prevent systemic emboli sm), Valvular heart disease, Atrial Fibrillation, Bileaflet mecha nical valve in aortic position.2. Mec hanical prosthetic valv es (high risk), 2. 5 - 3.5 Presence of Lup us Anticoagulant o r Antiphospholipi d Antibodies, Pre vention of systemic emb olism - Acute Myocardia l Infarction (to prevent recurrent infar ct). CBC W/AUTO [id number] 18:27:00 Test Item Value Reference Range Interpretation Comments WHITE BLOOD CELL (test code = 7.8 x10 3/uL 4.5-11.0 N WBC) RED BLOOD CELL (test code = 3.79 x10 6/uL 3.54-5.02 N RBC) HEMOGLOBIN (test code = HGB) 11.7 g/dL 11.0-15.0 N HEMATOCRIT (test code = HCT) 36.2 % 33.0-45.0 N MEAN CELL VOLUME (test code = 95.5 fL 81.0-99.0 N MCV) MEAN CELL HGB (test code = MCH) 30.9 pg 27.0-33.0 N MEAN CELL HGB CONCETRATION 32.3 g/dL 33.0-37.0 L (test code = MCHC) RED CELL DISTRIBUTION WIDTH CV 12.4 % 11.5-14.5 N (test code = RDW) RED CELL DISTRIBUTION WIDTH SD 43.5 fL 37.0-54.0 N (test code = RDW-SD) PLATELET COUNT (test code = 200 x10 3/uL 150-400 N PLT) MEAN PLATELET VOLUME (test code 10.2 fL 7.0-9.0 H = MPV) NEUTROPHIL % (test code = NT%) 66.1 % 56.0-77.0 N IMMATURE GRANULOCYTE % (test 0.4 % 0.0-2.0 N code = IG%) LYMPHOCYTE % (test code = LY%) 25.0 % 14.0-32.0 N MONOCYTE % (test code = MO%) 6.0 % 4.8-9.0 N EOSINOPHIL % (test code = EO%) 2.0 % 0.3-3.7 N BASOPHIL % (test code = BA%) 0.5 % 0.0-2.0 N NUCLEATED RBC % (test code = 0.0 % 0-0 N NRBC%) NEUTROPHIL # (test code = NT#) 5.18 x10 3/uL 2.0-7.6 N IMMATURE GRANULOCYTE # (test 0.03 x10 3/uL 0.00-0.03 N code = IG#) LYMPHOCYTE # (test code = LY#) 1.96 x10 3/uL 1.0-3.8 N MONOCYTE # (test code = MO#) 0.47 x10 3/uL 0.1-0.8 N EOSINOPHIL # (test code = EO#) 0.16 x10 3/uL 0.0-0.2 N BASOPHIL # (test code = BA#) 0.04 x10 3/uL 0.0-0.2 N NUCLEATED RBC # (test code = 0.00 x10 3/uL 0.0-0.1 N NRBC#) MANUAL DIFF REQUIRED (test code NO = MDIFF) - XR CHEST 2 [id number] 00:00:00 [facility] 1940 Sex: F FAX: Jose Ramon Obrien Ra, MD [phone] [place]: St: PRE Name: LIBERTY MERAZ [facility] : 1940 Age/S: 81/F [address] [place] [address] Unit #: [id number] Loc: [place] [address] Phys: Jose Ramon Olivier MD Acct: [id number] Dis Date: Status[place] [facility] [place] #: [phone] Exam Date: 12/11/2021 1452 FAX #: [phone] Reason:PREOP EXAMS: CPT CODE: [id number] XR CHEST 2 V 51891 PROCEDURE INFORMATION: Exam: XR Chest Exam dateand time: 12/11/2021 2:57 PM Age: 81 years old Clinical indication: Pre-operative exam; Respiratory screening exam; Additional info: Preop TECHNIQUE: Imaging protocol: Radiologic exam of the chest. Views: 2 views. COMPARISON: No relevant prior studies available. FINDINGS: Lungs: Unremarkable. No consolidation. Pleural spaces: Unremarkable. No pleural effusion. No pneumothorax. Heart/Mediastinum: Unremarkable. No cardiomegaly. Vasculature: Aortic calcifications. Bones/joints: Degenerative changes in the spine. IMPRESSION: No acute findings. Electronically Signed by Griffin Guido on12/11/2021 at 1556 Reported and signed by: Franklyn Guido M.D. CC: Jose Ramon Olivier MD Technologist: RT Ethan(Mike) Trnscrd Date/Time/By: 12/11/2021 (3273) : By: [email or web address] Orig Print D/T:S: 12/11/2021 (1201) PAGE 1 Signed Report
[2022-01-08] MEDS ORDERED: ASPIRIN 325 MG TAB ONE (02:34)
[2022-01-08] MEDS ORDERED: NITROGLYCERIN 0.4 MG/TAB SL ONE (02:35)
[2022-01-08] MEDS ORDERED: MORPHINE 4 MG/ML SYR ONE (03:20)
[2022-01-08] MEDS ORDERED: ONDANSETRON 4 MG/2 ML VIAL ONE (03:20)
[2022-01-08 04:03] LABS: Hematocrit 30.5 % (36.0-45.0); Lymphocytes % 15.8 % (15.3-44.8); MCV 93.2 fL (80-100); MPV 8.2 fL (7.6-11.3); RBC Red Blood Cell Count 3.27 M/uL (3.86-4.86)
[2022-01-08 04:15] LABS: Albumin 3.1 g/dL (3.4-5.0); Bilirubin Total 0.3 mg/dL (0.2-1.0); Potassium 4.7 mmol/L (3.5-5.1); Protein, Total 6.1 g/dL (6.4-8.2); Troponin High Sensitivity 14.4 pg/mL (<58.9)
[2022-01-08 05:55] LABS: SARS-CoV-2 Antigen Rapid Res Negative (Negative)
--- NOTE | 2022-01-08 09:05 | RAD REPORT ---
EXAM DESCRIPTION: CT - Angio Aorta For Dissection - 01/08/2022 8:45 am CLINICAL HISTORY: Chest pain radiating to the back. abd pain COMPARISON: No comparisons TECHNIQUE: CT angiography of the aorta was performed with MIPs. All CT scans are performed using dose optimization technique as appropriate and may include automated exposure control or mA/KV adjustment according to patient size. FINDINGS: A left aortic arch is present with normal branching pattern of the great vessels.No acute aortic finding is seen such as aneurysm, penetrating ulcer or dissection. There is moderate atherosc lerotic plaquing throughout the abdominal aorta and the origins of the major visceral arteries. No evidence of pulmonary embolism. There is an 8 mm pulmonary nodule right lung base laterally, noncalcified. The lungs are mildly emphy sematous. 15 mm benign cyst is present right lobe of the liver. Small calcification is also noted. Cholecystect winsome clips.Normal size spleen. The adrenal glands are normal.2.8 cm benign cyst inferior anterior righ t kidney. Hypoechoic lesions are seen throughout the pancreas which may be related to dilatation of t he pancreatic duct or cystic pancreatic lesions. No bowel obstruction, free fluid or abscess.Moderate stool is present throughout the colon. Mild sigm oid diverticulosis without diverticulitis. Normal appendix.No pathologic enlarged lymphadenopathy jorje ntified. Multilevel thoracic degenerative changes. IMPRESSION: No acute aortic finding is demonstrated. 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 These can be reassessed wit h nonemergent follow-up MRI abdomen/MRCP. Moderate stool is present throughout the colon. 8 mm pulmonary nodule right lung base laterally, noncalcified. Recommend follow-up CT chest in 3 [place] hs on a nonemergent basis.
--- NOTE | 2022-01-08 09:16 | ER ---
Nurse's Notes [facility] Name: Grace Kapoor Age: 81 yrs Sex: Female : 1940 Arrival Date: 01/08/2022 Time: 01:51 Bed 6 Private MD: Diagnosis: Chest pain, unspecified;Anemia, unspecified;Heart failure, unspecified Presentation: 01/08 02:16 Chief complaint: Patient states: I have pain in my chest and it goes to my back. aa9 Coronavirus screen: Vaccine status: Patient reports receiving the 2nd dose of the covid vaccine. Ebola Screen: No symptoms or risks identified at this time. Initial Sepsis Screen: Does the patient meet any 2 criteria? No. Patient's initial sepsis screen is negative. Does the patient have a suspected source of infection? No. Patient's initial sepsis screen is negative. Risk Assessment: Do you want to hurt yourself or someone else? Patient reports no desire to harm self or others. Onset of symptoms was January 08, 2022. 02:16 Method Of Arrival: Wheelchair aa9 02:16 Acuity: TATA 3 aa9 Triage Assessment: 02:18 General: Appears uncomfortable, well groomed, Behavior is calm, cooperative, aa9 appropriate for age. Pain: Complains of pain in xiphoid area Pain radiates to mid back area and right mid back. Neuro: Level of Consciousness is awake, alert, obeys commands, Oriented to person, place, time, situation. Cardiovascular: Patient's skin is warm and dry. Respiratory: Airway is patent Respiratory effort is even, unlabored. GI: No signs and/or symptoms were reported involving the gastrointestinal system. : No signs and/or symptoms were reported regarding the genitourinary system. Derm: Skin is intact, with poor turgor. Historical: - Allergies: 02:17 No Known Allergies; aa9 - PMHx: 02:17 a fib; Depression; Hypertension; Ulcers; aa9 - PSHx: 02:17 watchman; aa9 - Immunization history:: Client reports receiving the 2nd dose of the Covid vaccine. - Social history:: Smoking status: Patient denies any tobacco usage or history of. - Family history:: not pertinent. Screenin:19 Abuse screen: Denies threats or abuse. Denies injuries from another. Nutritional aa9 screening: No deficits noted. Tuberculosis screening: No symptoms or risk factors identified. Fall Risk None identified. Assessment: 03:50 Reassessment: Patient appears in no apparent distress at this time. Patient is alert, aa9 oriented x 3, equal unlabored respirations, skin warm/dry/pink. Patient states feeling better. Patient states symptoms have improved. 04:30 Reassessment: Patient appears in no apparent distress at this time. Patient is alert, aa9 oriented x 3, equal unlabored respirations, skin warm/dry/pink. 05:00 Reassessment: Patient appears in no apparent distress at this time. pt notified of room aa9 change, pt understands, denies concerns at this time. General: Appears comfortable. Respiratory: Airway is patent Respiratory effort is even, unlabored. 07:00 Reassessment: Patient appears in no apparent distress at this time. Patient is alert, aa9 oriented x 3, equal unlabored respirations, skin warm/dry/pink. pt supine in bed, eyes closed, breathing equal and regular. 07:30 Reassessment: Patient appears in no apparent distress at this time. No changes from [facility] previously documented assessment. Patient and/or family updated on plan of care and expected duration. Pain level reassessed. Patient is alert, oriented x 3, equal unlabored respirations, skin warm/dry/pink. 08:30 Reassessment: Patient appears in no apparent distress at this time. No changes from [facility] previously documented assessment. Patient and/or family updated on plan of care and expected duration. Pain level reassessed. Patient is alert, oriented x 3, equal unlabored respirations, skin warm/dry/pink. 09:30 Reassessment: Patient appears in no apparent distress at this time. No changes from [facility] previously documented assessment. Patient and/or family updated on plan of care and expected duration. Pain level reassessed. Patient is alert, oriented x 3, equal unlabored respirations, skin warm/dry/pink. 10:14 Reassessment: please see [facility] for further charting. [facility] Vital Signs: 02:16 BP 150 / 47; Pulse 46; Resp 17 S; Temp 98(O); Pulse Ox 98% on R/A; Weight 81.65 kg (R); aa9 Height 5 ft. 5 in. (165.10 cm) (R); 02:30 BP 136 / 95; Pulse 49; Resp 16 S; Pulse Ox 94% on R/A; aa9 03:30 BP 141 / 43; Pulse 47; Resp 15 S; Pulse Ox 97% on R/A; aa9 04:00 BP 143 / 47; Pulse 50; Resp 17 S; Pulse Ox 97% on R/A; aa9 04:30 BP 138 / 46; Pulse 51; Resp 18 S; Pulse Ox 94% on R/A; aa9 05:00 BP 139 / 58; Pulse 54; Resp 20 S; Pulse Ox 97% on R/A; aa9 05:24 BP 146 / 41; Pulse 51; Resp 15 S; Pulse Ox 96% on R/A; aa9 07:38 BP 129 / 56; Pulse 54; Resp 18 S; Pulse Ox 100% on R/A; kc6 08:38 BP 129 / 40; Pulse 57; Resp 21 S; Pulse Ox 100% on R/A; Pain 4/10; kc6 02:16 Body Mass Index 29.95 (81.65 kg, 165.10 cm) aa9 ED Course: 01:51 Patient arrived in ED. bp1 01:56 Teddy Helms MD is Attending Physician. rt 02:10 Addie Ariza, RN is Primary Nurse. aa9 02:17 Triage completed. aa9 02:19 Arm band placed on. aa9 02:19 Patient has correct armband on for positive identification. Placed in gown. Bed in low aa9 position. Call light in reach. Adult w/ patient. Client placed on continuous cardiac and pulse oximetry monitoring. NIBP monitoring applied. 02:41 Chest Single View XRAY In Process Unspecified. EDMS 02:45 Inserted saline lock: 22 gauge in right forearm, using aseptic technique. Blood aa9 collected. 02:45 No provider procedures requiring assistance completed. Patient maintains SpO2 aa9 saturation greater than 95% on room air. 02:47 BNP Sent. aa9 02:47 Troponin High Sensitivity Sent. aa9 02:47 CMP Sent. aa9 02:47 CBC with Diff Sent. aa9 03:34 Lipase Sent. aa9 03:34 BNP Sent. aa9 03:34 Troponin High Sensitivity Sent. aa9 03:34 CMP Sent. aa9 07:07 Attending Physician role handed off by Teddy Helms MD ms3 07:07 Mynor Rooney DO is Attending Physician. ms3 07:38 Margaret Lomeli RN is Primary Nurse. kc6 08:47 Angio Aorta For Dissection In Process Unspecified. EDMS 08:48 Inserted saline lock: 22 gauge in right antecubital area, using aseptic technique. kc6 ,using aseptic technique. placed by Mami. 09:15 Bj Davepnort MD is Hospitalizing Provider. ms3 10:13 Patient admitted, IV remains in place. kc6 Administered Medications: 02:47 Not Given (Patient Refused): Nitroglycerin 0.4 mg Sublingual once; every five minute if aa9 needed x3 02:47 Drug: Aspirin 325 mg Route: PO; aa9 03:25 Follow up: Response: No adverse reaction aa9 03:25 Drug: morphine 4 mg Route: IVP; Infused Over: 4 mins; Site: right forearm; aa9 03:34 Follow up: Response: No adverse reaction aa9 03:25 Drug: Zofran (Ondansetron) 4 mg Route: IVP; Site: right forearm; aa9 03:34 Follow up: Response: No adverse reaction aa9 Medication: 02:19 VIS not applicable for this client. aa9 Outcome: 09:16 Decision to Hospitalize by Provider. ms3 10:13 Admitted to ER Hold. Please see [facility] for further documentation. kc6 10:13 Condition: stable 10:13 Instructed on the need for admit. 19:20 Patient left the ED. vc1 Signatures: Dispatcher [employer] EDMS Mynor Rooney DO DO ms3 Rhonda Resendez Vanessa, RN RN vc1 Addie Ariza, TITO RN aa9 Margaret Lomeli, TITO RN kc6 Teddy Helms MD MD rt Corrections: (The following items were deleted from the chart) 10:14 10:14 Pain: Pain began kc6 kc6 14:06 10:13 Admitted to Med/surg accompanied by tech, via stretcher, with chart, kc6 kc6
--- NOTE | 2022-01-08 09:17 | EDPHYS ---
Physician Documentation [facility] Name: Grace Kapoor Age: 81 yrs Sex: Female : 1940 Arrival Date: 01/08/2022 Time: 01:51 Bed 6 Private MD: ED Physician Mynor Rooney HPI: 01/08 02:36 This 81 yrs old Female presents to ER via Wheelchair with complaints of Chest Pain > 30 rt y/o, Abdominal Pain. 02:36 The patient or guardian reports chest pain that is located primarily in the substernal rt area. Onset: 4 hour(s) ago. The pain does not radiate. Associated signs and symptoms: Pertinent positives: nausea, Pertinent negatives: vomiting. The chest pain is described as burning. Duration: The patient or guardian reports a single episode, that is still ongoing. Modifying factors: The symptoms are alleviated by nothing. the symptoms are aggravated by nothing. Severity of pain: At its worst the pain was moderate. Patient presents to the ED with substernal to epigastric pain starting 4 hours prior to arrival. She took some Tylenol to no relief. Denies aggravating alleviating factors. Has had nausea without vomiting. Denies other acute complaints at this time, symptoms are moderate in severity.. Historical: - Allergies: 02:17 No Known Allergies; aa9 - PMHx: 02:17 a fib; Depression; Hypertension; Ulcers; aa9 - PSHx: 02:17 watchman; aa9 - Immunization history:: Client reports receiving the 2nd dose of the Covid vaccine. - Social history:: Smoking status: Patient denies any tobacco usage or history of. - Family history:: not pertinent. ROS: 02:36 Constitutional: Negative for fever, chills, and weight loss, Eyes: Negative for injury, rt pain, redness, and discharge, ENT: Negative for injury, pain, and discharge, Neck: Negative for injury, pain, and swelling, Respiratory: Negative for shortness of breath, cough, wheezing, and pleuritic chest pain, MS/Extremity: Negative for injury and deformity, Skin: Negative for injury, rash, and discoloration, Neuro: Negative for headache, weakness, numbness, tingling, and seizure, Psych: Negative for depression, anxiety, suicide ideation, homicidal ideation, and hallucinations. 02:36 Cardiovascular: Positive for chest pain, Negative for edema. 02:36 Abdomen/GI: Positive for nausea, Negative for vomiting. Exam: 02:36 Constitutional: This is a well developed, well nourished patient who is awake, alert, rt and in no acute distress. Head/Face: Normocephalic, atraumatic. Eyes: Pupils equal round and reactive to light, extra-ocular motions intact. Lids and lashes normal. Conjunctiva and sclera are non-icteric and not injected. Cornea within normal limits. Periorbital areas with no swelling, redness, or edema. ENT: Nares patent. No nasal discharge, no septal abnormalities noted. Tympanic membranes are normal and external auditory canals are clear. Oropharynx with no redness, swelling, or masses, exudates, or evidence of obstruction, uvula midline. Mucous membranes moist. Neck: Trachea midline, no thyromegaly or masses palpated, and no cervical lymphadenopathy. Supple, full range of motion without nuchal rigidity, or vertebral point tenderness. No Meningismus. Chest/axilla: Normal chest wall appearance and motion. Nontender with no deformity. No lesions are appreciated. Cardiovascular: Regular rate and rhythm with a normal S1 and S2. No gallops, murmurs, or rubs. Normal PMI, no JVD. No pulse deficits. Respiratory: Lungs have equal breath sounds bilaterally, clear to auscultation and percussion. No rales, rhonchi or wheezes noted. No increased work of breathing, no retractions or nasal flaring. Skin: Warm, dry with normal turgor. Normal color with no rashes, no lesions, and no evidence of cellulitis. MS/ Extremity: Pulses equal, no cyanosis. Neurovascular intact. Full, normal range of motion. Neuro: Awake and alert, GCS 15, oriented to person, place, time, and situation. Cranial nerves II-XII grossly intact. Motor strength 5/5 in all extremities. Sensory grossly intact. Cerebellar exam normal. Normal gait. Psych: Awake, alert, with orientation to person, place and time. Behavior, mood, and affect are within normal limits. 02:36 Abdomen/GI: Minimal epigastric tenderness without guarding, rebound, distention. 02:38 ECG was reviewed by the Attending Physician. rt Vital Signs: 02:16 BP 150 / 47; Pulse 46; Resp 17 S; Temp 98(O); Pulse Ox 98% on R/A; Weight 81.65 kg (R); aa9 Height 5 ft. 5 in. (165.10 cm) (R); 02:30 BP 136 / 95; Pulse 49; Resp 16 S; Pulse Ox 94% on R/A; aa9 03:30 BP 141 / 43; Pulse 47; Resp 15 S; Pulse Ox 97% on R/A; aa9 04:00 BP 143 / 47; Pulse 50; Resp 17 S; Pulse Ox 97% on R/A; aa9 04:30 BP 138 / 46; Pulse 51; Resp 18 S; Pulse Ox 94% on R/A; aa9 05:00 BP 139 / 58; Pulse 54; Resp 20 S; Pulse Ox 97% on R/A; aa9 05:24 BP 146 / 41; Pulse 51; Resp 15 S; Pulse Ox 96% on R/A; aa9 07:38 BP 129 / 56; Pulse 54; Resp 18 S; Pulse Ox 100% on R/A; kc6 08:38 BP 129 / 40; Pulse 57; Resp 21 S; Pulse Ox 100% on R/A; Pain 4/10; kc6 02:16 Body Mass Index 29.95 (81.65 kg, 165.10 cm) aa9 MDM: 02:05 Patient medically screened. rt 06:33 Differential diagnosis: abnormal EKG, acute myocardial infarction, acute pericarditis, rt pneumonia, pneumothorax, pulmonary embolus, thoracic aortic disection. HEART Score: History: Moderately Suspicious (1), ECG: Non specific repolarization disturbance / LBTB / PM (1), Age: > or = 65 years (2), Risk Factors: 1 or 2 risk factors (1), Troponin: < or = 1 x Normal Limit (0), Total Score = 5. Data reviewed: vital signs, nurses notes, old medical records, lab test result(s), EKG, radiologic studies. ED course: Patient presents to the ED with chest pain, improving with pain medications in the ED. Patient refused aspirin due to Eliquis prescription. She is found to have a sinus bradycardia, no other acute findings on the EKG. Labs reveal an elevated BNP but negative work-up otherwise. I discussed the case with Dr. Davenport, requests that aortic dissection protocol be performed, request call back with results.. 09:13 ED course: Discussed case with Dr Davenport and he accepts patient as observation.. ms3 01/08 02:16 Order name: CBC with Diff; Complete Time: 04:14 rt 01/08 02:16 Order name: CMP; Complete Time: 04:17 rt 01/08 02:16 Order name: Troponin High Sensitivity; Complete Time: 04:17 rt 01/08 02:16 Order name: BNP; Complete Time: 04:17 rt 01/08 02:16 Order name: Lipase; Complete Time: 04:17 rt 01/08 05:29 Order name: SARS RAPID; Complete Time: 05:56 aa9 01/08 09:22 Order name: Basic Metabolic Panel EDMS 01/08 09:22 Order name: Basic Metabolic Panel EDMS 01/08 09:22 Order name: CBC with Automated Diff EDMS 01/08 09:22 Order name: CBC with Automated Diff EDMS 01/08 09:23 Order name: Troponin High Sensitivity EDMS 01/08 09:23 Order name: Troponin High Sensitivity EDMS 01/08 09:24 Order name: Troponin High Sensitivity EDMS 01/08 09:24 Order name: Troponin High Sensitivity EDMS 01/08 02:16 Order name: Chest Single View XRAY rt 01/08 06:13 Order name: CT Dissection w/wo Con rt 01/08 07:48 Order name: CONS Physician Consult EDMS 01/08 08:14 Order name: Angio Aorta For Dissection; Complete Time: 09:11 EDMS 01/08 09:22 Order name: EKG Electrocardiogram EDMS 01/08 09:22 Order name: EKG Electrocardiogram EDMS 01/08 09:22 Order name: EKG Electrocardiogram EDMS 01/08 09:22 Order name: EKG Electrocardiogram EDMS 01/08 09:24 Order name: Low Sodium EDMS 01/08 12:53 Order name: Protime (+INR) EDMS 01/08 13:12 Order name: Hemoglobin A1c EDMS 01/08 13:14 Order name: Thyroid Stimulating Hormone EDMS EC:38 Rate is 44 beats/min. Rhythm is regular, Sinus bradycardia. QRS [place] is Normal. [place] rt interval is normal. QRS interval is normal. QT interval is normal. No Q waves. T waves are Normal. No ST changes noted. Interpreted by me. Administered Medications: 02:47 Not Given (Patient Refused): Nitroglycerin 0.4 mg Sublingual once; every five minute if aa9 needed x3 02:47 Drug: Aspirin 325 mg Route: PO; aa9 03:25 Follow up: Response: No adverse reaction aa9 03:25 Drug: morphine 4 mg Route: IVP; Infused Over: 4 mins; Site: right forearm; aa9 03:34 Follow up: Response: No adverse reaction aa9 03:25 Drug: Zofran (Ondansetron) 4 mg Route: IVP; Site: right forearm; aa9 03:34 Follow up: Response: No adverse reaction aa9 Disposition Summary: 01/08/22 09:16 Hospitalization Ordered Hospitalization Status: Observation ms3 Provider: Bj Davenport ms3 Condition: Stable ms3 Problem: new ms3 Symptoms: are unchanged ms3 Bed/Room Type: Standard ms3 Location: [facility] ER HOLD(01/08/22 16:37) j Room Assignment: ERHOLD-(01/08/22 16:37) [facility] Diagnosis - Chest pain, unspecified ms3 - Anemia, unspecified ms3 - Heart failure, unspecified ms3 Forms: - Medication Reconciliation Form ms3 - SBAR form ms3 Signatures: Dispatcher [employer] EDVahid Bowens RN RN jd3 Mynor Rooney DO DO ms3 Addie Ariza, RN RN aa9 Teddy Helms MD MD rt Corrections: (The following items were deleted from the chart) 16:37 09:16 Telemetry/MedSurg (observation) ms3 jd3 16:37 09:16 ms3 jd3
[2022-01-08] MEDS ORDERED: ONDANSETRON 4 MG/2 ML VIAL IV PRN (09:18)
[2022-01-08] MEDS ORDERED: ACETAMINOPHEN 500 MG TAB ONE ×2 (10:01→16:32)
[2022-01-08] MEDS: ACETAMINOPHEN 500 MG TAB PO PRN ×2 (10:05→16:35)
[2022-01-08 10:18] VITALS: BMI 29.6
[2022-01-08] MEDS ORDERED: HYDROCODONE/APAP 5/325 MG TAB PO PRN (10:54)
[2022-01-08] MEDS ORDERED: INFLUENZA VACCINE (for 6+ mo) 0.5 ML DOSE IMVAC ONE ×2 (11:00→18:29)
[2022-01-08] MEDS ORDERED: PNEUMOCOCCAL VACCINE 0.5 ML IMVAC ONE ×2 (11:00→18:29)
--- NOTE | 2022-01-08 11:26 | P.HP ---
Patient History Date of Service: 01/08/22 Allergies No Known Allergies Allergy (Verified 05/12/15 05:08) Home Medications: Fenofibrate [Tricor*] 160 mg PO DAILY 03/03/14 Fluoxetine HCl [Prozac] 40 mg PO DAILY 03/03/14 Pantoprazole [Protonix Tab*] 40 mg PO DAILY 04/14/14 Cholecalciferol (Vitamin D3) [Vitamin D 1000 Iu Tab] 3,000 unit PO DAILY 05/12/15 Rivaroxaban [Xarelto] 20 mg PO DAILY #30 tablet 05/13/15 lisinopriL [Lisinopril] 10 mg PO DAILY #30 tablet 05/13/15 - Past Medical/Surgical History Has patient received pneumonia vaccine in the past: No Diabetic: No -: HTN -: ULCERS -: DEPRESSION -: HYSTERECTOMY -: CRISTINA -: BILATERAL KNEE SX - Social History Smoking Status: Unknown if ever smoked Alcohol use: No CD- Drugs: No Caffeine use: Yes Place of Residence: Home Physical Examination - Studies Laboratory Data (last 24 hrs) 01/08/22 03:32: Sodium 143, Potassium 4.7, BUN 39 H, Creatinine 1.33 H, Glucose 140 H, Total Bilirubin 0.3, AST 15, ALT 19, Alkaline Phosphatase 65, Lipase 77 01/08/22 03:32: WBC 6.40, Hgb 10.3 L, Hct 30.5 L, Plt Count 123 L Assessment and Plan - Advance Directives Does patient have a Living Will: No Does patient have a Durable POA for Healthcare: No
--- NOTE | 2022-01-08 12:09 | RAD REPORT ---
EXAM DESCRIPTION: XR Chest, 1 View CLINICAL HISTORY: The patient is 81 years old and is Female; CHEST PAIN TECHNIQUE: Frontal view of the chest. COMPARISON: No relevant prior studies available. FINDINGS: LUNGS: Bilateral perihilar calcified granulomas. No focal consolidation. PLEURAL SPACE: Unremarkable. No pleural effusion. No pneumothorax. HEART: Prominence of the cardiomediastinal silhouette, likely exaggerated secondary to portable aramis hnique, lordotic positioning, and patient body habitus. MEDIASTINUM: See above. BONES/JOINTS: Multilevel spondylosis. VASCULATURE: Calcified atherosclerosis of the aortic arch. Mild tortuosity of the descending thorac ic aorta. IMPRESSION: No acute findings in the chest. Electronically signed by: Graeme Gutiérrez MD 01/08/2022 3:33 AM CLOTH INSPECTOR Due to temporary technical issues with the PACS/Fluency reporting system, reports are being signed by the in house radiologists without review as a courtesy to insure prompt reporting. The interpreting radiologist is fully responsible for the content of the report.
--- NOTE | 2022-01-08 12:48 | EKG ---
Test Date: 2022-01-08 Test Time: 02:11:03 Cost Estimating Clerk: WILFRED MEASUREMENT RESULTS: Intervals: Rate: 44 NE: 184 QRSD: 82 QT: 450 QTc: 384 [place]: P: 70 NE: 184 QRS: 42 T: 54 INTERPRETIVE STATEMENTS: Marked sinus bradycardia Abnormal ECG Compared to ECG 12/10/2017 15:26:54 ST (T wave) deviation no longer present Electronically Signed On 01-08-22 12:47:41 TREASURY SPECIALIST by Jose Ramon Olivier
[2022-01-08 12:53] LABS: Protime INR 1.21
[2022-01-08] MEDS ORDERED: SODIUM CHLORIDE 0.9% 10ML INJ IV PRN (15:07)
[2022-01-08] MEDS ORDERED: PANTOPRAZOLE 40 MG INJ IVP ONE (15:15)
[2022-01-08 15:33] VITALS: O2SAT 95
[2022-01-08] MEDS ORDERED: PANTOPRAZOLE 40 MG INJ ONE (15:53)
[2022-01-08 18:11] VITALS: BP 167/43
[2022-01-08 19:25] VITALS: TEMP 98
--- NOTE | 2022-01-08 19:35 | CON ---
Date of Consultation: 01/08/2022 Reason For Consultation: Chest pain. History Of Present Illness: A 81-year-old female patient who is seen in the clinic, has history of a trial fibrillation, status post left atrial appendage closure recently. She comes in with pain to th e right rib cage and right upper extremity that has been constant, increases with movements. She had a stress test done about 10 days ago in my office, which was totally normal. She denies having any left-sided chest pain. No shortness of breath. No nausea, vomiting, or diaphoresis at the present t jael. She had an episode of nausea yesterday. Past Medical History: Hypertension, atrial fibrillation. Medications: Refer reconciliation sheet for detailed list. Allergies: NO KNOWN DRUG ALLERGIES. Family History: No premature coronary artery disease or cancer. Social History: She does not smoke or drink. Does not use any drugs. Review of Systems: All systems reviewed and they were negative except as mentioned in the HPI. Physical Examination: Vital Signs: Reviewed. Head and Neck: Pupils are equal, reactive to light. Intact eye movements. No JVD. No cervical lym phadenopathy. Neck: Supple. Thyroid is not enlarged. Lungs: Clear to auscultation bilaterally. No rhonchi, wheezing, or crackles. No accessory muscle u se. Heart: Regular rate and rhythm. No extra sounds. Abdomen: Soft, nontender. Bowel sounds positive. No organomegaly. No masses or hernia. No rigidi ty or rebound. Extremities: No edema, clubbing, or cyanosis. Intact pulses. Skin: No rash. Neurologic: Alert, awake, oriented x3. No acute focal deficits appreciated. Lymph Nodes: No cervical or axillary lymphadenopathy. Investigations: BUN 39, creatinine 1.33. Troponins 2 sets are negative. Assessment And Recommendation: 1.Chest pain. It is very atypical pain. Cardiac enzymes are negative. She had recent stress test that was normal within the past 10 days. This pain is not cardiac and no further cardiac workup is r ecommended. 2.Atrial fibrillation. She is in sinus rhythm, status post recent left atrial appendage closure. C ontinue Eliquis and beta-favian. 3.Elevated NT-proBNP, likely diastolic dysfunction. She appears to be euvolemic and no further molly mmendations on that matter. At the present time, she has an echo scheduled as an outpatient to asses s her heart function. From cardiology standpoint if patient can be released, follow up as an outpati ent. Thank you for the consult. HAILEY Voice ID: [id number] Report ID: [id number]
[2022-01-08] MEDS ORDERED: APIXABAN 5 MG TABLET PO SCH (21:00)
--- NOTE | 2022-01-09 07:50 | HP ---
Date of Admission: 01/08/2022 Chief Complaint: Chest pain. History Of Present Illness: This is a 81-year-old pleasant female patient, who came into emergency r oom with complaints of substernal chest pain and right upper quadrant pain radiating to her back. Th e patient had some associated nausea and this pain started around 9 p.m. yesterday and few hours late r, she came into emergency room and received morphine in the emergency room and her pain was relieved after morphine dose was given in the emergency room, but otherwise, the pain was continuous until th at point. The patient reports that few years ago, she had stomach ulcer and she had similar type of pain at that time. The patient reports that she had Watchman's procedure done about 2 weeks ago and 1 week ago she had a stress test done with her press operator assistant, Dr. Medina. When I saw her in the [facility] room this morning, she was feeling better compared to initially when she first came into emerge ncy room. Denies any fever or chills. Allergies: NO KNOWN ALLERGIES. Medications: Amlodipine 10 mg daily, Eliquis 5 mg 2 times a day, famotidine 40 mg daily at bedtime, hydralazine 50 mg 2 times a day, Creon, losartan 100 mg daily, sertraline 20 mg daily, rosuvastatin 2 0 mg daily, metoprolol tartrate 25 mg half a tablet daily, hydrochlorothiazide 12.5 mg daily, and vit archer D3 daily. Review of Systems: GI: As mentioned above. Cardiovascular: As mentioned above. All other systems reviewed and negative. 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 Family History: Parents , details unknown. Sister , with dementia. Social History: Negative for smoking. Use of alcohol, glass of wine daily. Physical Examination: Vital Signs: Height 5 feet and inches, weight pounds, temperature , p ulse , respiratory rate , blood pressure , oxygen saturation . General: Awake, alert, oriented, not in distress. HEENT: Head atraumatic, normocephalic. Conjunctivae nonerythematous. Sclerae white. Mouth, no thr ush or edema noted. Ears/Nose, no mass, lesion, discharge noted. Neck: Supple. No JVD, lymph nodes, bruit, thyromegaly noted. Lungs: Bilateral good equal air entry. Clear to auscultation. No rhonchi. No rales. Heart: Normal heart sounds, no murmur or gallop. Abdomen: Patient does have mild tenderness in epigastric and right upper quadrant region. No reboun d tenderness, no distention, no hepatosplenomegaly, no bruit. Bowel sounds normoactive. Extremities: No leg edema. No calf tenderness. Skin: No rash, ulcer, cellulitis. Lymphatics: No lymph node enlargement in neck, supraclavicular, infraclavicular region. Neuro: No focal neurological deficit. Chest: Unremarkable. External Genitalia: Deferred. Rectal: Deferred. Laboratory Data: White count 6.4, hemoglobin 10.3, platelets 123. Sodium 143, potassium 4.7, chlori de 114, bicarb 27, BUN 39, creatinine 1.33, glucose 140. Liver function tests unremarkable. Initial troponin 14.4, BNP 1168. COVID-19 test negative. CAT scan of the aorta per dissection protocol was negative for any acute findings. No evidence of pulmonary embolism. It did show presence of multip le pancreatic cyst and pulmonary nodule. Hospital Course: The patient was evaluated in the emergency room, she was admitted to the hospital f or observation. IV Protonix was given one-time dose. Cardiology and Pulmonary consultation were req uested. AL was ruled out by getting 3 negative troponins and the patient was discharged to go home i n stable condition with following discharge medications and instructions: 1.Continue all prior home medications. 2.Omeprazole 40 mg take 1 capsule by mouth daily. 3.Follow up at my office next week. 4.Patient to follow up with press operator assistant this week or next week and the patient to follow up with pu lmonologist for pulmonary nodule. The patient to continue to follow up at [facility] for her pancre atic cyst, which she has been doing it on an outpatient basis. Final Diagnoses: 1.Chest pain. 2.Known cardia. 3.Abdominal pain, upper abdomen. 4.Chronic kidney disease, stage 3B. 5.Paroxysmal atrial fibrillation. 6.Hypertension. 7.Mixed hyperlipidemia. 8.Anemia due to chronic kidney disease. 9.Thrombocytopenia. 10.Depression. 11.Gastroesophageal reflux disease. 12.Glomerulonephritis. SUSANA/MODL Voice ID: [id number]
[2022-01-09] MEDS ORDERED: PANTOPRAZOLE 40MG TABLET PO SCH (09:00)
[2022-01-09] MEDS ORDERED: VITAMIN D 1000 UNIT TAB PO SCH (09:00)
[2022-01-09] MEDS ORDERED: ASPIRIN EC 81 MG TAB PO SCH (09:00)
[2022-01-09] MEDS ORDERED: FENOFIBRATE 160 MG TAB PO SCH (09:00)
[2022-01-09] MEDS ORDERED: FLUOXETINE 20 MG CAP PO SCH (09:00)
[2022-01-09] MEDS ORDERED: FUROSEMIDE 40 MG/4 ML VIAL IV SCH (09:00)
== END 2022-01-08 19:22 | disposition home or self-care (01) ==
LOC: ER 01:48 → ERHOLD 09:18
PROVIDERS: ADMIT Internal Medicine; ATTEND Internal Medicine
DX: R07.9 Chest pain, unspecified (principal); I10 Essential (primary) hypertension; E78.2 Mixed hyperlipidemia; K21.9 Gastro-esophageal reflux disease without esophagitis; I48.0 Paroxysmal atrial fibrillation; Z86.16 Personal history of COVID-19; N18.9 Chronic kidney disease, unspecified; D63.1 Anemia in chronic kidney disease; D69.6 Thrombocytopenia, unspecified; F32.A Depression, unspecified; R10.11 Right upper quadrant pain; N05.9 Unspecified nephritic syndrome with unspecified morphologic changes; Z20.822 Contact with and (suspected) exposure to COVID-19
CPT/HCPCS: 93005; 85025; 36415; 85610; 84443; 83036; 84484 ×3; 83690; 80053; 83880; 71275; 74175; 71045; 90471 ×2; 90732; 96375; 96374; 99285; 87811; Q9967; Q2035; C9113; J2405; G0378 ×2

== ENCOUNTER 2022-02-15 12:14 | Day surgery (SDC) | payer OTHER ==
[2022-02-15] MEDS ORDERED: NA CHLORIDE 0.9% 500 ML ONE (13:12)
[2022-02-15] MEDS ORDERED: FENTANYL CITR 100 MCG/2 ML ONE (13:18)
[2022-02-15] MEDS ORDERED: LIDOCAINE VISCOUS 2% SOLN 15 ML UDC ONE (13:18)
[2022-02-15] MEDS ORDERED: FLUMAZENIL 0.1 MG/ML (5 mL VIAL) IV ONE (13:18)
[2022-02-15] MEDS ORDERED: ATROPINE SULF 1 MG/10 ML SYR IV ONE (13:18)
[2022-02-15] MEDS ORDERED: MIDAZOLAM HCL 2 MG/2 ML INJ ONE (13:18)
[2022-02-15] MEDS ORDERED: METOPROLOL TARTRATE 5 MG/5 ML INJ IV ONE (13:18)
[2022-02-15] MEDS ORDERED: PHENOL 1.4% ORAL SPRAY 180ML ONE (13:19)
[2022-02-15] MEDS ORDERED: MIDAZOLAM HCL 5 ML ONE (13:44)
[2022-02-15 16:02] VITALS: BP 140/50; TEMP 97; O2SAT 96
--- NOTE | 2022-02-15 19:14 | OP ---
Date of Procedure: 02/15/2022 Surgeon: LATA SANDY Procedure Performed: Transesophageal echocardiogram. Indication: Atrial fibrillation status post Watchman procedure. Description Of Procedure: After risks, benefits, and alternatives were explained, patient agreed for procedure. After proper time-out, I used the lidocaine gel to numb the back of the throat and then we gave 4 mg of Versed and then the JOURDAN probe was inserted into the esophagus without difficulty. TE E was performed and then removed the probe without complications. Conclusion: Successful transesophageal echocardiogram with Watchman seated well and no leak or throm bosis. Plan: Discontinue Eliquis. SR/MODL Voice ID: [id number] Report ID: [id number]
--- NOTE | 2022-02-16 07:03 | TEE ---
TRANSESOPHAGEAL ECHOCARDIOGRAM REPORT CARDIOLOGY DEPARTMENT DATE OF STUDY: 02/15/2022 HEIGHT: 5'5" WEIGHT: 180 lbs DIAGNOSIS: ATRIAL FIBRILLATION/ WATCHMAN STENOTYPIST COMMENTS: JOURDAN CARDIAC HISTORY: CATHERIZATION: SURGERY: PROSTHETIC VALVE: PACEMAKER: 2 DIMENSIONAL ASSESSMENT: RIGHT ATRIUM: NORMAL LEFT ATRIUM: NORMAL RIGHT VENTRICLE: NORMAL LEFT VENTRICLE: NORMAL TRICUSPID VALVE: NORMAL MITRAL VALVE: MILD MITRAL REGURGITATION PULMONIC VALVE: NORMAL AORTIC VALVE: NORMAL PERICARDIAL EFFUSION: NONE AORTIC ROOT: NORMAL EJECTION FRACTION: 55-60 % LEFT VENTRICULAR WALL MOTION: NORMAL DOPPLER/COLOR FLOW: MILD MITRAL REGURGITATION COMMENTS: 1. NORMAL LEFT VENTRICULAR EJECTION FRACTION 55-60% 2. WATCHMAN IS WELL SEATED, NO THROMBUS AND NO LEAK 3. 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
== END 2022-02-15 16:04 | disposition home or self-care (01) ==
LOC: EKG 12:14
PROVIDERS: ATTEND Internal Medicine
DX: I48.91 Unspecified atrial fibrillation (principal); Z98.890 Other specified postprocedural states
CPT/HCPCS: 93312; J0461; J2250 ×2; J3010; J7040

== ENCOUNTER 2022-07-04 14:00 | Emergency (ER) | payer OTHER ==
--- OUTSIDE RECORDS SUMMARY | 2022-07-04 14:04 | XMS REPORT | Clinical Summary ---
:1940 Author Organization [facility] MD [facility] Address [address] [place] [address] Care Team Providers Name Role Phone Bj [...] mouth daily. acetaminophen (Tylenol Take 650 mg by 0 Active Arthritis Pain) 650 MG CR mouth every 8 tablet (eight) hours as needed for mild pain. [...] with meals, 1 units-60,000 units po with snacks capsuleIndications: Cyst of pancreas, Exocrine pancreatic insufficiency 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 Encounters Date Type Specialty Care Team Description 08/22/2021 Orders Only Gastrointestinal Medical Bogdan Metzger Cyst of pancreas Oncology J, CRC (Primary Dx) after 07/04/2021 Surgical History Surgery Date Site/Laterality Comments CHOLECYSTECTOMY [...] Vaccination (#1) 1940 Results Not on fileafter 07/04/2021 Insurance Payer Benefit Plan / Subscriber ID Effective Dates Phone Addre ss Type Group HUMANA HUMANA CHOICE [id number] 2020-Presen [address] [address] Medicare [place] [address] Care Teams Locker Room Attendant Relationship Specialty Start Date End Date Bj Davenport MD PCP - External Referring Internal Medicine 07/14/[address] [place] [address] [place] [id number] Israel Haque MD PCP - General Surgical Oncology 08/10/[address] [place] [id number]
--- OUTSIDE RECORDS SUMMARY | 2022-07-04 14:05 | XMS REPORT | Continuity of Care Document ---
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 7-13 ity of 00:00: [place] 00 MD [facility] Chronic Chronic Problem Active Common diarrhea diarrhea [facility] Heel pain Heel pain Problem Active Com mon [facility] [id number] Muscle Problem Active Common cramps [facility] Hyperlipid Hyperlipem Problem Active C ommon aemia ia [facility] Gastroesop GERD Problem Active Commo n hageal (gastroeso Spirit reflux phageal - [facility] disease reflux St disease) [facility] Peripheral Peripheral Problem Active C ommon edema edema [facility] [id number] Elevated Problem Active Commo n blood uric [facility] acid [facility] [id number] Serum Problem Active Common carbon [facility] dioxide - [facility] decreased [facility] [id number] Elevated Problem Active Comm on LFTs [facility] [id number] Abdominal Problem Active Comm on pain, Spirit unspecifie - [facility] d [facility] Atrial Atrial Problem Active Common fibrillati fibrillati Sp shirlene on on [facility] 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 [facility] Seasonal Seasonal Problem Active Commo n allergy allergies [facility] [id number] Hypersomni Problem Active Com mon a [facility] [id number] History of Problem Active Co mmon atrial Spirit fibrillati [facility] [id number] Fatigue, Problem Active Commo n unspecifie Spirit d type [facility] [id number] Hyperglyce Problem Active Com mon jacklyn [facility] [id number] Low back Problem Active Comm on pain Spirit without - [facility] sciatica, St unspecifie [facility] d back Medical pain Center laterality , unspecifie d chronicity Knee pain Knee pain Problem Active Com mon [facility] [id number] Snoring Problem Active Common [facility] Rash Rash Problem Active Common [facility] [id number] Constipati Problem Active Com mon on, Spirit [facility]if[facility] Vitamin D Problem Active Com mon deficiency deficiency Sp shirlene - [facility] [id number] Depression Problem Active Co mmon screening [facility] Shoulder Shoulder Problem Active Commo n pain pain [facility] [id number] Essential Problem Active Comm on hypertensi Spirit on [facility] Skin Skin Problem Active Common cancer cancer [facility] [id number] Hyperchlor Problem Active Com mon emia [facility] [id number] Stage 4 Problem Active Commo n chronic Spirit kidney - [facility] disease [facility] [id number] Hyperkalem Problem Active Com mon ia [facility] Imaging Abnormal Problem Active Common result findings Spirit abnormal on [facility] diagnostic St imaging 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 [facility] [id number] History of Problem Active Co mmon skin [facility] cancer [facility] [id number] Cataract Problem Active Commo n of both Spirit eyes, [facility] unspecifie d cataract [facility] Allergies, Adverse Reactions, Alerts Allergy Allergy Status Severity Reaction(s) Onset Inactive Treating Comm ents Source Name Type Date Date Clinician No Known DA Active U 2021-02 [facility] Allergie 0-31 Clear s 00:00: Carter 00 [facility] Social History Social Habit Start Date Stop Date Quantity Comments Source History of Former Smoker Common Spir it - Tobacco Use [facility] Alcohol intake 2020-09-05 2020-09-05 Current drinker [...] Universit y of 00:00:00 00:00:00 Tanja calixto [facility] Smoking Status Start Date Stop Date Source Former Smoker 2019-09-12 00:00:00 2019-09-12 00:00:00 Common S pirit - [facility] Medications Ordered Filled Start Stop Current Ordering Indication Dosage Frequency Signature Comments Components Source Medication Medication Date Date Medication? Clinician (SIG) [facility] Exocrine Take 1-2 Univers e (Creon) 7-21 pancreatic po with i ty of 12,000 00:00: insufficien meals, 1 [place] units-38,00 00 cy po with MD 0 snacks Anderso units-60,00 n 0 units Cancer capsule [place] pancrelipas Yes Exocrine Take 1-2 Univers e (Creon) 7-21 pancreatic po with i ty of 12,000 00:00: insufficien meals, 1 [place] units-38,00 00 cy po with MD 0 snacks Anderso units-60,00 n 0 units Cancer capsule [place] pancrelipas Yes Exocrine Take 1-2 Univers e (Creon) 7-21 pancreatic po with i ty of 12,000 00:00: insufficien meals, 1 [place] units-38,00 00 cy po with MD 0 snacks Anderso units-60,00 n 0 units [facility] capsule [place] ibuprofen Yes 3{capsu Take 3 Uni vers 200 mg cap 7-16 le} capsules ity o f 08:31: by mouth [place] 49 as needed. MD Rico ortega [email or web address] loperamide Yes 2mg Take 2 mg Un ruthann (Imodium 7-16 by mouth ity of A-D) 2 mg 08:31: daily. [place] tablet 49 MD Rico ortega [facility] [[email or web address] ibuprofen Yes 3{capsu Take 3 Uni vers 200 mg cap 7-16 le} capsules ity o f 08:31: by mouth [place] 49 as needed. MD Rico ortega [facility] [[email or web address] loperamide Yes 2mg Take 2 mg Un ruthann (Imodium 7-16 by mouth ity of A-D) 2 mg 08:31: daily. [place] tablet 49 MD Rico ortega [facility] [[email or web address]] ibuprofen Yes 3{capsu Take 3 Uni vers 200 mg cap 7-16 le} capsules ity o f 08:31: by mouth [place] 49 as needed. MD [facility] loperamide Yes 2mg Take 2 mg Un ruthann (Imodium 7-16 by mouth ity of A-D) 2 mg 08:31: daily. [place] tablet 49 MD [facility] acetaminoph Yes 650mg Take 650 U nivers en (Tylenol 7-16 mg by ity of Arthritis 08:31: mouth [place] Pain) 650 48 every 8 MD MG CR (eight) Anderso tablet hours as n needed for Cancer mild pain. [place] acetaminoph Yes 650mg Take 650 U nivers en (Tylenol 7-16 mg by ity of Arthritis 08:31: mouth [place] Pain) 650 48 every 8 MD MG CR (eight) Anderso tablet hours as n needed for Cancer mild pain. [place] acetaminoph Yes 650mg Take 650 U nivers en (Tylenol 7-16 mg by ity of Arthritis 08:31: mouth [place] Pain) 650 48 every 8 MD MG CR (eight) Anderso tablet hours as n needed for Cancer mild pain. [place] pancrelipas Yes Exocrine Take by Univers e (Creon) 716 pancreatic mouth 1-2 ity of 12,000 00:00: insufficien [place] units-38,00 00 cy meals, 1 MD 0 with Anderso units-60,00 snacks. n 0 units Cancer capsule Center pancrelipas Yes Exocrine Take by Univers e (Creon) 716 pancreatic mouth 1-2 ity of 12,000 00:00: insufficien [place] units-38,00 00 cy meals, 1 MD 0 with Anderso units-60,00 snacks. n 0 units Cancer capsule Center pancrelipas Yes Exocrine Take by Univers e (Creon) 716 pancreatic mouth 1-2 ity of 12,000 00:00: insufficien [place] units-38,00 00 cy meals, 1 MD 0 with Anderso units-60,00 snacks. n 0 units Cancer capsule [place] hydrALAZINE Yes 1{tbl} Take 1 Un ruthann (APRESOLINE 7-12 tablet by ity of ) 10 mg 00:00: mouth [place] tablet 00 twice MD daily. [facility] hydrALAZINE Yes 1{tbl} Take 1 Un ruthann (APRESOLINE 7-12 tablet by ity of ) 10 mg 00:00: mouth [place] tablet 00 twice MD daily. [facility] hydrALAZINE Yes 1{tbl} Take 1 Un ruthann (APRESOLINE 7-12 tablet by ity of ) 10 mg 00:00: mouth [place] tablet 00 twice MD daily. [facility] sertraline Yes 1{tbl} Take 1 Uni vers (ZOLOFT) 25 5-30 tablet by ity of mg tablet 00:00: mouth [place] 00 daily. [facility] sertraline Yes 1{tbl} Take 1 Uni vers (ZOLOFT) 25 5-30 tablet by ity of mg tablet 00:00: mouth [place] 00 daily. [facility] sertraline Yes 1{tbl} Take 1 Uni vers (ZOLOFT) 25 5-30 tablet by ity of mg tablet 00:00: mouth [place] 00 daily. [facility] traMADol Yes 1{tbl} Take 1 Unive rs (ULTRAM) 50 5-27 tablet by ity of mg tablet 00:00: mouth [place] 00 needed. [facility] traMADol Yes 1{tbl} Take 1 Unive rs (ULTRAM) 50 5-27 tablet by ity of mg tablet 00:00: mouth [place] 00 needed. [facility] traMADol Yes 1{tbl} Take 1 Unive rs (ULTRAM) 50 5-27 tablet by ity of mg tablet 00:00: mouth [place] 00 needed. [facility] hydroCHLORO Yes 1{tbl} Take 1 Un ruthann thiazide 5-21 tablet by ity of (HYDRODIURI 00:00: mouth [place] L) 12.5 mg 00 daily. [facility] hydroCHL[facility]O Yes 1{tbl} Take 1 Un ruthann thiazide 5-21 tablet by ity of (HYDRODIURI 00:00: mouth [place] L) 12.5 mg 00 daily. MD maddie Gómez [facility] hydroCHLORO Yes 1{tbl} Take 1 Un ruthann thiazide 5-21 tablet by ity of (HYDRODIURI 00:00: mouth [place] L) 12.5 mg 00 daily. MD [facility] amLODIPine Yes 1{tbl} Take 1 Uni vers (NORVASC) 5 5-10 tablet by ity of mg tablet 00:00: mouth [place] 00 daily. MD Rico ortega [facility] [[email or web address]] famotidine Yes 1{tbl} Take 1 Uni vers (PEPCID) 40 5-10 tablet by ity of mg tablet 00:00: mouth [place] 00 daily. MD Rico ortega [facility] [[email or web address]] amLODIPine Yes 1{tbl} Take 1 Uni vers (NORVASC) 5 5-10 tablet by ity of mg tablet 00:00: mouth [place] 00 daily. MD Rico ortega [facility] [[email or web address]] famotidine Yes 1{tbl} Take 1 Uni vers (PEPCID) 40 5-10 tablet by ity of mg tablet 00:00: mouth [place] 00 daily. MD Rico rotega [facility] [[email or web address]] amLODIPine Yes 1{tbl} Take 1 Uni vers (NORVASC) 5 5-10 tablet by ity of mg tablet 00:00: mouth [place] 00 daily. MD Rico ortega [facility] [[email or web address]] famotidine Yes 1{tbl} Take 1 Uni vers (PEPCID) 40 5-10 tablet by ity of mg tablet 00:00: mouth [place] 00 daily. MD Rico ortega [facility] [[email or web address]] rosuvastati Yes 20mg Take 20 mg Univers n (CRESTOR) 2-22 by mouth ity of 20 mg 00:00: daily. [place] tablet 00 MD Rico ortega [facility] [[email or web address]] rosuvastati Yes 20mg Take 20 mg Univers n (CRESTOR) 2-22 by mouth ity of 20 mg 00:00: daily. [place] tablet 00 MD Rico ortega [facility] [[email or web address]] rosuvastati Yes 20mg Take 20 mg Univers n (CRESTOR) 2-22 by mouth ity of 20 mg 00:00: daily. [place] tablet 00 MD Rico ortega [facility] [[email or web address]] losartan 2021- No 100mg Take 100 Uni vers (COZAAR) 2-19 02-20 mg by ity of 100 mg 00:00: 05:59 mouth [place] tablet 00 :00 daily. MD Rico ortega [facility] [[email or web address]] losartan 2021- No 100mg Take 100 Uni vers (COZAAR) 2-19 02-20 mg by ity of 100 mg 00:00: 05:59 mouth [place] tablet 00 :00 daily. MD Rico ortega [facility] [[email or web address]] Sertraline Sertraline No Sertraline HCl 25 MG HCl 25 MG 1 HCl 25 MG 00:00: 00 metoprolol Yes 25mg Take 25 mg U nivers tartrate 9-28 by mouth ity of (LOPRESSOR) 00:00: [place]. [place] 25 mg 00 MD tablet [facility] metoprolol Yes 25mg Take 25 mg U nivers tartrate 9-28 by mouth ity of (LOPRESSOR) 00:00: daily. [place] 25 mg 00 MD tablet [facility] metoprolol Yes 25mg Take 25 mg U nivers tartrate 9-28 by mouth ity of (LOPRESSOR) 00:00: [place]. [place] 25 mg 00 tablet [facility] Nasonex Nasonex Yes Jes 2 sprays Comm on Millender in each Spirit nostril [facility] Zantac Zantac Yes Jes 1 tablet Common Millender at bedtime Spir it [facility] Tessalon Tessalon Yes Jes 1 capsule C ommon Perles Perles [place] as needed S pirit [facility] Vitamin D3 Vitamin D3 Yes Jes 1 capsule Common Millender (otc) [facility] Vitamin B Vitamin B Yes Jes not Comm on 01 22 Millender defined [facility] Lisinopril Lisinopril Yes Jes 1 tablet Common Millender [facility] Zina Zina Yes Jes not Common Millender defined [facility] Promethazin Promethazin Yes Jes 5 ml as Common e-DM e-DM Millender needed [facility] Hydrochloro Hydrochloro Yes Jes 1 tablet Common thiazide thiazide Millender in the [facility] morning [facility] Zoloft Zoloft Yes Jes 1 tablet Common Millender [facility] Protonix Protonix Yes Jes 1 tablet Co mmon Millender [facility] Metoprolol Metoprolol Yes Jes 1 tablet Common Tartrate Tartrate Millender with food [facility] Zestoretic Zestoretic Yes Jes 1 tablet Common Millender [facility] Atorvastati Atorvastati Yes Jes 1 tablet Common n Calcium n Calcium Millender [facility] Aspir-81 Aspir-81 Yes Jes 1 tablet Co mmon Millender [facility] Xarelto Xarelto Yes Jes 1 tablet Comm on Millender with food [facility] t [facility] Astelin Astelin Yes Jes 1 puff in Com mon Millender each [facility] nostril [facility] Fenofibrate Fenofibrate Yes Jes 1 tablet Common Millender with food [facility] Amoxicillin Amoxicillin Yes Jes not Common -Pot -Pot Millender defined [facility] Clavulanate Clavulanate [facility] Losartan Losartan Yes Jes 1 tablet Co mmon Potassium Potassium Millender [facility] Pravastatin Pravastatin Yes Jes 1 tablet Common Sodium Sodium Millender [facility] Prozac Prozac Yes Jes 1 capsule Commo n Millender [facility] ProAir HFA ProAir HFA Yes Jes 2 puffs as Common Millender needed [facility] Nasonex 50 Nasonex 50 No 2{spray QD [...] 500-125 MG 500-125 MG e 500-125 MG Amlodipine Amlodipine Yes Jes 1 tablet Common Besylate Besylate Millender Sp shirlene [facility] Immunizations Ordered Immunization Filled Immunization Date Status Commen ts Source Name Name FLUZONE HIGH DOSE FLUZONE HIGH DOSE 2017-12-10 Completed Common Spirit OVER 65 OVER 65 13:18:00 [facility] Procedures Procedure Date / Time Performed Performing Clinician Rohith harvinder [id number] 2021-12-13 00:00:00 [facility] [id number] 2021-12-13 00:00:00 [facility] [id number] 2021-12-13 00:00:00 [facility] Plan of Care Planned Activity Planned Date Details Comments Source Future Scheduled 2022-01-23 COVID-19 Vaccination Uni versity [facility] [place] Test 16:30:32 (#1) [code = COVID-19 MD And erson [...] Type Clinicians Facility Department ID 2021-03-08 Outpatient [facility] [id number] Common 12:16:37 [id number] [facility] 2021-03-08 Outpatient Vickey Seymour [facility] [id number] Common 12:07:59 [id number] [facility] 2021-03-08 Outpatient Vickey Seymour [facility] [id number] Common 11:58:38 [id number] [facility] 2021-03-08 Outpatient [place], STLMLC STLMLC [id number] Common 11:58:21 Jes [id number] [facility] 2021-03-08 Outpatient [place], STLMLC STLMLC [id number] Common 11:34:00 Jes [id number] [facility] 2021-03-08 Outpatient Guichoender, STLMLC STLMLC [id number] Common 11:24:22 Jes [id number] [facility] 2021-03-08 Outpatient [place], STLMLC STLC [id number] Common 11:04:13 Jes [id number] [facility] 2021-03-08 Outpatient [place], STLMLC STLC [id number] Common 11:03:49 Jes [id number] [facility] 2021-03-08 Outpatient [place], STLC STLC [id number] Common 11:03:08 Jes [id number] [facility] 2020-07-14 Outpatient SHAHAB PATRICK MDA [id number] 11:39:19 PROVIDER Enrique ortega 2021-12-13 2021-12-14 Inpatient JAMEE GillespieCL INTE.[id number] [facility] 16:26:00 13:30:[address] 2021-08-22 2021-08-22 Orders Abdifatah Metzger.2.840.1 [id number] [facility] 00:00:00 00:00:00 Only Bogdan Albarado [id number] it y of 3.412.2.7 [place] .[id number] MD Lopes [facility] 2021-08-22 2021-08-22 Orders Lauryn Metzger2.840.1 [id number] Univers 00:00:00 00:00:00 Only Bogdan Albarado [id number] it y of 3.412.2.7 [place] .3.842571 MD Bryant8 [facility] 2020-09-15 2020-09-15 Outpatient WENDIE HAQUE MDA MDA [id number] 10:04:29 10:04:29 ELISHA orteag 2020-08-26 2020-08-26 Outpatient EL RODDY, MDA MDA [id number] 07:58:15 09:28:42 ELISHA ortega 2020-08-25 2020-08-25 Outpatient EL ZAFAR, MDA MDA [id number] 14:50:42 23:59:00 CURTIS ortega 2020-08-25 2020-08-25 Outpatient EL ZAFAR, MDA MDA [id number] 15:24:26 15:24:26 CURTIS ortega 2020-08-25 2020-08-25 Outpatient EL MDA MDA [id number] 14:40:12 14:40:49 Enrique ortega 2020-08-04 2020-08-04 Outpatient EL MDA MDA [id number] MD 12:38:54 12:38:54 Enrique ortega 2020-08-04 2020-08-04 Outpatient EL MDA MDA [id number] 12:38:50 12:38:50 Enrique ortega 2020-08-04 2020-08-04 Outpatient EL MDA MDA [id number] MD 12:38:45 12:38:45 Enrique ortega 2019-11-27 2019-11-27 (TEL) STLMLC STLMLC [id number] Co mmon 00:00:00 00:00:00 [facility] 2019-09-16 2019-09-16 Outpatient [facility] [id number] Common 23:29:00 23:29:00 [facility] 2019-09-12 2019-09-12 [place] [id number] Common 23:44:00 23:44:00 [facility] 2019-09-11 2019-09-11 [facility] [id number] Common 08:40:00 08:40:00 [facility] 2019-08-04 2019-08-04 [place] [place] [id number] Common 13:59:00 13:59:[address] [facility] 2019-06-08 2019-06-08 [facility] [id number] Common 14:15:00 14:15:[address] [facility] 2019-03-11 2019-03-11 [facility] [id number] Common 11:30:00 11:30:[address] [facility] 2018-06-18 2018-06-18 [facility] [id number] Common 15:00:00 15:00:[address] [facility] 2018-06-13 2018-06-13 [facility] [id number] Common 00:23:00 00:23:[address] [facility] 2018-05-19 2018-05-19 [facility] [id number] Common 17:31:00 17:31:[address] [facility] 2018-05-19 2018-05-19 [facility] [id number] Common 10:00:00 10:00:[address] [facility] 2018-03-07 2018-03-07 [facility] [id number] Common 14:00:00 14:00:[address] [facility] 2018-02-06 2018-02-06 [facility] [id number] Common 10:45:00 10:45:[address] [facility] 2017-11-18 2017-11-18 [facility] [id number] Common 14:02:00 14:02:[address] [facility] 2017-10-24 2017-10-24 Out[facility] [id number] Common 16:00:00 16:00:[address] [facility] 2017-08-19 2017-08-19 Outpatient [place] [facility] [id number] Common 11:54:00 11:54:[address] [facility] 2017-07-17 2017-07-17 Outpatient [facility] [id number] Common 10:49:00 10:49:[address] [facility] 2017-07-10 2017-07-10 Outpatient Ian [facility] [id number] Common 13:46:00 13:46:[address] [facility] 2017-07-09 2017-07-09 Outpatient Ian [facility] [id number] Common 09:30:00 09:30:[address] [facility] [address] [facility] Results Test Description Test Time Test Comments [...] CA) 8.9 mg/dL 8.0-10.5 N CBC W/AUTO [id number] 07:01:00 Test Item Value Reference Range Interpretation [...] DIFF REQUIRED (test code NO = MDIFF) [id number] 15:18:00 Test Item Value Reference Range Interpretation Comments ACT-ISBAIRON (test code 277 SEC 74-137 H Perform ed by certified = ACTI) 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 [facility] - XR CHEST 1 [id number] 00:00:00 [facility] MER[facility] BurrellY : 1940 Sex: F FAX: Jose Ramon Obrien Ra, MD [phone] [place]: St: ADM FAX: Alan Hickey [phone] Name: LIBERTY MERAZ [facility] :1940 Age/S: 81/F [address] [place] [address] Unit #: [id number] Loc: FELICIANO Chance EDDA [address] Phys: Alan Hickey [facility] Acct: [id number] Dis Date: Status: ADM IN PHONE #: [phone] Exam Date:12/13/2021 171 FAX #: [phone] Reason: S/P WATCHMAN EXAMS: CPT CODE: [id number] XR CHEST 1 V 66706 PROCEDURE INFORMATION: Exam: XR Chest Exam date [...] left atrial appendage. No acute cardiopulmonary disease. [id number] Reported and signed by: Kenny Dozier M.D. CC: Jose Ramon Olivier MD; Alan Hickey Techn ologist: NADIR Miller) Trnscrd Date/Time/By: 12/13/2021 (1744) : By: [email or web address] Orig Print D/T: S: 12/13/2021 (1749) PAGE 1 Signed ReportPREALBUMIN 2021-12-11 18:49:00 Test Item Value Reference Range Interpretation Comments PREALBUMIN (test code = PREALB) 31.2 mg/dL 16.0-40.0 N BASIC METABOLIC [id number] 18:49:00 Test Item Value Reference Range Interpretation [...] = 9.8 mg/dL 8.0-10.5 N CA) PROTHROMBIN [id number] 18:34:00 Test Item Value Reference Range Interpretation [...] (to prevent recurrent infar ct). CBC W/AUTO [id number] 18:27:00 Test Item Value Reference Range Interpretation [...] NO = MDIFF) - XR CHEST 2 [id number] 00:00:00 [facility] : 1940 Sex: F FAX: Jose Ramon Obrien Ra, MD [phone] [place]: St: PRE Name: LIBERTY MERAZ [facility] [place] : 1940 Age/S: 81/F [address] [place] [address] Unit #: [id number] Loc: [place] [address] Phys: Jose Ramon Olivier MD Acct: [id number] Dis Date: Status: PRE SDC PHONE #: [phone] Exam Date: 12/11/20211456 FAX #: [phone] Reason: PREOP EXAMS: CPT CODE: [id number] XR CHEST 2 V 35054 PROCEDURE INFORMATION: Exam: XR Chest Exam date and time: 12/11/2021 2:57 PM Age: 81 years [...] acute findings. Electronically Signed by Griffin Guido on 12/11/2021 at 8545 Reported and signed by: Franklyn Guido M.D. CC: Jose Ramon Olivier MD Technologist: RT Ethan(Mike) Trnscrd Date/Time/By: 12/11/2021 (8831) : By: [email or web address] Orig Print D/T: S: 12/11/2021 (5260) PAGE 1 Signed Report Notes Date/Time Note Provider Source 2021-12-14 10:49:00-00:00 [id number] [place] [address] PATIENT NAME: LIBERTY MERAZ ADMIT DATE: 12/13/21 ACCOUNT NO: [id number] ROOM NO: [id number] AGE: 81 REPORT TYPE: eECHOCARDIOGRAM REPORT SEX: F ADMITTING PHYSICIAN:Robbie Choi MD ATTENDING PHYSICIAN:Robbie Choi MD *[place] [address] Limited Transthoracic Echocardiogram Patient: Liberty Meraz Study Date: 12/14/2021 BP: 118 / 77 Location: [facility] URN: [id number] 3289 : 1940 Age: 81 Height: 65 in / 165.1 cm Gender: F Weight: 179 .6 lb / 81.6 kg BMI/BSA: 30 kg/m 2 / 1.89 m 2 *Ordering Physician: * Alan Hickey *Interpreting Physician: * Robbie Choi MD *Welder And Fitter: * Sybil Zarate Indications: Rule out pericardial effusion. Study data: Transthoracic echocardiogram, limite d study. Procedure: Transthoracic echocardiography was performed. Im age quality was adequate. Limited 2D and limited spectral Dopple r. Location: Bedside. Patient status: Inpatient. Patient room number: 3362. Study status: Routine. Rhythm: Normal sinus rhythm. Findings Left ventricle: The cavity size is normal. Wall thickness is normal. Systolic function is normal. The estimated eject ion fraction is 55-60%. Wall motion is normal; there are no regional wal l motion abnormalities. Right ventricle: The cavity size is normal. Syst olic function is normal. Left atrium: The atrium is dilated. PATIENT NAME: LIBERTY MERAZ Right atrium: The atrium is normal in size. Aorta: Aortic root: The aortic root is normal in size. Aortic valve: The valve is structurally normal. The valve is trileaflet. There is no evidence of stenosis. Th ere is mild regurgitation. Mitral valve: The valve is structurally normal. There is no evidence of stenosis. There is mild regurgitatio n. Tricuspid valve: Estimated right ventricle systo lic pressure is 32 mmHg. The valve is structurally normal. There is mild-moderate regurgitation. Pulmonic valve: The valve is structurally normal . There is mild regurgitation. Pericardium: There is no pericardial effusion. Pulmonary arteries: The main pulmonary artery is normal-sized. Systemic veins: Inferior vena cava: The vessel is dilated. Infer ior vena cava diameter is 2.1 cm. Measurements Left ventricle Value Ref MONIQUE, LAX 4.4 cm 3.8 - 5.2 ESD, LAX 2.9 cm 2.2 - 3.5 ESD/bsa, LAX 1.5 cm/m 2 1.3 - 2.1 FS, LAX 35 % 27 - 45 ESD/bsa major 2.9 cm/m 2 --------- ax, A4C MONIQUE/bsa minor 2.9 cm/m 2 --------- ax, A4C MONIQUE major ax, 7.4 cm --------- A2C ESD major ax, 6.4 cm --------- A2C MONIQUE/bsa major 3.9 cm/m 2 --------- ax, A2C ESD/bsa major 3.4 cm/m 2 --------- ax, A2C PW, ED 0.8 cm 0.6 - 0.9 IVS/PW, ED 1.37 --------- EF 64 % 54 - 74 E', lat danilo, 8.0 cm/sec >=10.0 TDI E/e', lat danilo, 19 --------- TDI E', med danilo, 6.1 cm/sec >=7.0 TDI E/e', med danilo, 25 --------- TDI E', avg, TDI 7.1 cm/sec --------- E/e', avg, TDI 22 <=14 LVOT Value Ref PATIENT NAME: LIBERTY MERAZ Diam, S 1.87 cm --------- Area 2.7 cm 2 --------- Peak laila, S 0.92 m/sec --------- Mean laila, S 0.67 m/sec --------- VTI, S 23.8 cm --------- Peak grad, S 3 mm Hg --------- Mean grad, S 2 mm Hg --------- SV 65 ml --------- Qs 3.48 L/min --------- Qs/bsa 1.8 L/(min-m 2) --------- SV/bsa 34 ml/m 2 --------- Ventricular septum Value Ref IVS, ED 1.1 cm 0.6 - 0.9 Right ventricle Value Ref MONIQUE, LAX 3.3 cm --------- Left atrium Value Ref AP dim, ES 4.93 cm 2.70 - 3.80 Vol/bsa, ES, 30 ml/m 2 11 - 40 1-p A4C Vol, ES, 2-p 84 ml --------- Vol/bsa, ES, 45 ml/m 2 16 - 34 2-p Vol/bsa, ES, 32 ml/m 2 16 - 34 A/L AP dim, ES MM 4.9 cm 2.7 - 3.8 LA/Ao root 2.01 --------- ratio, MM Aortic valve Value Ref Leaflet sep, MM 1.16 cm --------- Peak v, S 1.61 m/sec --------- Mean v, S 1.09 m/sec --------- VTI, S 36.2 cm --------- Mean grad, S 5.2 mm Hg --------- Peak grad, S 10.4 mm Hg --------- LVOT/AV, VTI 0.66 --------- ratio TORIE, VTI 1.80 cm 2 --------- LVOT/AV, Vpeak 0.57 --------- ratio TORIE, Vmax 1.56 cm 2 --------- Mitral valve Value Ref Peak E 0.07 m/sec --------- Peak A 0.43 m/sec --------- Mean v, D 0.67 m/sec --------- VTI leaflet 42.1 cm --------- coapt Decel time 235 ms --------- PHT 76 ms --------- PATIENT NAME: ANTWONLIBERTY Mean grad, D 2.3 mm Hg --------- Peak grad, D 8.4 mm Hg --------- Peak E/A ratio 3.58 --------- MVA, PHT 2.9 cm 2 --------- MR peak v 5.08 m/sec --------- Pulmonic valve Value Ref ND v, ED 0.53 m/sec --------- Tricuspid valve Value Ref TR peak v 2.61 m/sec <=2.8 Peak RV-RA 27 mm Hg --------- grad, S Aortic root Value Ref Root diam, ED 2.42 cm --------- MM Conclusions Summary: 1. Left ventricle: The cavity size is normal. Wa ll thickness is normal. Systolic function is normal. The estimated ejec tion fraction is 55-60%. Wall motion is normal; there are no reg ional wall motion abnormalities. 2. Left atrium: The atrium is dilated. The end-s ystolic volume index (2-plane Moon's) is 45 ml/m 2. 3. Aortic valve: There is mild regurgitation. 4. Mitral valve: There is mild regurgitation. 5. Tricuspid valve: Estimated right ventricle sy stolic pressure is 32 mmHg. There is mild-moderate regurgitation. 6. Pulmonic valve: There is mild regurgitation. Prepared and electronically signed by Robbie Choi MD 12/14/2021 10:49 at 1049 PATIENT NAME: LIBERTY MERAZ 2021-12-14 10:40:00-00:00 [facility] ([facility] Discharge Summary REPORT#:[id number] REPORT STATUS: Signed DATE:12/14/21 TIME: 1040 PATIENT: LIBERTY MERAZ UNIT #: [id number] ROOM/BED: [place] [address] : 42 AGE: 81 SEX: F ATTEND: Alexandre Choi MD ADM AUTHOR: Alan Hickey * ALL edits or amendments must be made on the [employer]/computer document * PCP PCP Discharge to: home General Information Discharge date: 12/14/21 Discharge diagnosis: afib Hospital course: Patient with paroxysmal atrial fibrillation, DALY DSVASC score of 4, and intolerance to long-term anticoagulation due to history of bleeding and falls. Patient is s/p successful implantation of a 24mm Watchman device in the left atrial appendage. Patient tolerated the procedure without post-op complications. No thrombus was identified in the pre-/intra-op JOURDAN. Postoperatively, chest x-ray is negative for any acute process. Post-op echo did not show a pericardial effusion. Patient ambulated without an y difficulty, and heart rate and blood pressure are stable. Right groin suture removed by this VENDOR MANAGEMENT SPECIALIST. No infect ion, bleeding, or hematoma. Patient was provided with post-Watchman discharg e instructions. Patient is to follow up with PCP and canal structure operator in 1 to 2 we eks post discharge. Patient is to follow up with canal structure operator for th e 45-day JOURDAN, and for anticoagulation recommendation. Patient is to continue Eliquis until 45-day JOURDAN. Post-Watchman discharge instructions given to th e patient who verbalized understanding, and patient w as instructed to report any complaints of chest pain , shortness of breath, lightheadedness, or dizzi ness to the canal structure operator. Med Rec PCP PCP: PCP: Jose Ramon Olivier MD Med Rec Discharge meds: Continue taking these medications: amLODIPine (NORVASC) 5 MG TAB 5 MILLIGRAM ORAL DAILY-PM hydrALAZINE (APRESOLINE) 50 MG TAB 50 MILLIGRAM ORAL TWICE DAILY. HYDROCHLOROTHIAZIDE (HYDRODIURIL) 25 MG TAB 25 MILLIGRAM ORAL DAILY. LOSARTAN (COZAAR) 100 MG TAB 100 MILLIGRAM ORAL DAILY. METOPROLOL TARTRATE (LOPRESSOR) 25 MG TAB 25 MILLIGRAM ORAL THREE TIMES A DAY. SERTRALINE (ZOLOFT) 25 MG TAB 25 MILLIGRAM ORAL DAILY. CHOLECALCIFEROL (VITAMIN D3) (VITAMIN D3) 125 MC G (5,000 UNIT) TAB 5,000 UNITS ORAL DAILY. TRIAMCINOLONE ACETONIDE (TRIAMCINOLONE 0.1% CREA M) 0.1 % CREAM 1 APPLIC TOPICAL TWICE DAILY. ACETAMINOPHEN ER (TYLENOL ARTHRITIS PAIN) 650 MG TAB.SA 650 MILLIGRAM ORAL EVERY 8 HR NEEDED. as nee ded for PAIN CYANOCOBALAMIN (VITAMIN B-12) 1,000 MCG TAB 5,000 MICROGRAM ORAL DAILY. Objective VS/I O Last Documented: Result Date Time Pulse Ox 98 12/15 743 B/P 130/80 12/15 743 B/P Mean 96.6 12/15 743 O2 Delivery Room air 12/15 743 Temp 36.5 12/15 743 Pulse 71 12/15 743 Resp 14 12/15 743 24 hour I O ending at 0700: 12/14 1900 Intake Total 240 Output Total Balance 240 Intake, Oral 240 Number Voids 2 Patient 82.4 kg 81.818 kg Weight Weight Standing scale Stated/Reported Measurement Method PATIENT WEIGHT: Weight (lb): 181 Weight (oz): 10.57 Weight (kg): 82.400 General appearance: alert, awake, oriented Cardiovascular: regular rate rhythm Respiratory: clear to auscultation, no distress GI: soft, non-tender Extremities: moves all Neuro/MASTER OCEAN: alert, oriented X 3 Skin: dry Wound/incision: Location: Right groin suture removed by this VENDOR MANAGEMENT SPECIALIST. No infect ion, bleeding, or hematoma. Results Findings/Data: Laboratory Tests: 12/14 12/13 0432 1511 Chemistry Sodium (134 - 147 mEq/L) 140 Potassium (3.4 - 5.0 mEq/L) 4.9 Chloride (100 - 108 mEq/L) 110 H Carbon Dioxide (21 - 33 mEq/l) 21 Anion Gap (0 - 20) 14 BUN (7 - 18 mg/dL) 29 H Creatinine (0.6 - 1.3 mg/dL) 1.5 H Glomerular Filtr Rate (70 - 80) 33.5 L Glucose (70 - 110 mg/dL) 110 Calcium (8.0 - 10.5 mg/dL) 8.9 Coagulation Activated Coag Time (74 - 137 SEC) 277 H Hematology WBC (4.5 - 11.0 x10 3/uL) 6.2 RBC (3.54 - 5.02 x10 6/uL) 3.28 L Hgb (11.0 - 15.0 g/dL) 10.4 L Hct (33.0 - 45.0 %) 31.7 L MCV (81.0 - 99.0 fL) 96.6 MCH (27.0 - 33.0 pg) 31.7 MCHC (33.0 - 37.0 g/dL) 32.8 L RDW (11.5 - 14.5 %) 12.3 Plt Count (150 - 400 x10 3/uL) 167 MPV (7.0 - 9.0 fL) 10.5 H Neut % (Auto) (56.0 - 77.0 %) 77.1 H Lymph % (Auto) (14.0 - 32.0 %) 18.7 Glasscock % (Auto) (4.8 - 9.0 %) 3.4 L Eos % (Auto) (0.3 - 3.7 %) 0.2 L Baso % (Auto) (0.0 - 2.0 %) 0.3 Neut # (Auto) (2.0 - 7.6 x10 3/uL) 4.74 Lymph # (Auto) (1.0 - 3.8 x10 3/uL) 1.15 Glasscock # (Auto) (0.1 - 0.8 x10 3/uL) 0.21 Eos # (Auto) (0.0 - 0.2 x10 3/uL) 0.01 Baso # (Auto) (0.0 - 0.2 x10 3/uL) 0.02 Abs Immat Gran (auto) (0.00 - 0.03 x10 3/uL) 0. 02 Add Manual Diff NO Immature Gran % (0.0 - 2.0 %) 0.3 Nucleated RBC % (0 - 0 %) 0.0 Nucleated RBCs # (Man) (0.0 - 0.1 x10 3/uL) 0.0 0 Radiology data: Recent Impressions: RADIOLOGY - XR CHEST 1 V 12/13 1711 Report Impression - Status: SIGNED Entered: 12/13/2021 6451 IMPRESSION: Interval placement of occluder device in the exp ected region of the left atrial appendage. No acute cardiopulmonary disease. Impression By: Gregor Dozier M.D. Treatments Procedures Treatments Procedures: 1. Left atrial appendage closure using a 24 mm W atchman FLX closure device. 2. Synchronized electric cardioversion into sinu s rhythm. Lab: Chemistry last 24 hrs: 12/15 431 Chemistry Sodium (134 - 147 mEq/L) 140 Potassium (3.4 - 5.0 mEq/L) 4.9 Chloride (100 - 108 mEq/L) 110 H BUN (7 - 18 mg/dL) 29 H Creatinine (0.6 - 1.3 mg/dL) 1.5 H Glucose (70 - 110 mg/dL) 110 Hematology last 24 hrs: 12/15 431 Hematology WBC (4.5 - 11.0 x10 3/uL) 6.2 Hgb (11.0 - 15.0 g/dL) 10.4 L Hct (33.0 - 45.0 %) 31.7 L Plt Count (150 - 400 x10 3/uL) 167 Neut % (Auto) (56.0 - 77.0 %) 77.1 H Imaging: Recent Impressions: RADIOLOGY - XR CHEST 1 V 12/13 1711 Report Impression - Status: SIGNED Entered: 12/13/2021 0545 IMPRESSION: Interval placement of occluder device in the exp ected region of the left atrial appendage. No acute cardiopulmonary disease. Impression By: NettieABSaige - Kenny Dozier M.D. Discharge Instructions PCP PCP: PCP: Jose Ramon Olviier MD )( Discharge to: Home/Self Care Discharge Instructions Additional Discharge Routines: Attending Follow- Up )( Diet: Cardiac )( Activity: As Tolerated Follow-up Appointments Attending Physician: Attending Physician: Robbie Choi MD Attending physician follow up timeframe: In 1-2 weeks Quality: Discharge Current Medications Current medication review: I attest that the foregoing medication list in [facility] medical record is true, accurate, and complete to the best of my knowled ge. Electronically Signed by Alan Hickey o jordan 12/14/21 at 1112 Electronically Signed by Robbie Choi MD on at 0001 RPT #:[id number] END OF REPORT 2021-12-13 17:33:00-00:00 [facility] ([facility]) History Physical - Adult REPORT#:[id number] REPORT STATUS: Signed DATE:12/13/21 TIME: 1733 PATIENT: LIBERTY MERAZ UNIT #: [id number] ROOM/BED: [place] [address] : 42 AGE: 81 SEX: F ATTEND: Alexandre Choi MD ADM AUTHOR: Sharyn Shaw SADDLE STITCH OPERATOR * ALL edits or amendments must be made on the el [employer]ronic/computer document * History of Present Illness HPI Chief complaint: S/p watchman PCP: PCP: Jose Ramon Olivier MD HPI: 81 YO pleasant female with PMHx of atrial fibril lation, anemia who cannot tolerate oral anticoagulation. She underwent suc cesful elective watchman implantation and cardioversi on. She is doing well post-op. She will be observed overnight and discharge in the morning once stab le. Informant/historian: patient, prior records, ref erring physician Free Text HPI Notes Free Text HPI Notes: 81 YO female History Past medical history: Reports: Atrial fibrillation, Hypertension. Rajesh es: Congestive heart failure, Coronary artery disease, Diabetes mellitus, GERD /gastritis. Family history: Denies: CAD < 40 yrs old. Alcohol use: Denies EtOH use Drug use: Denies recreational drugs Smoking status for patients 13 years old or olde r: Former Smoker Date last smoked: 02/11/71 Medication/Allergy-Vaccine Hx Medications: Home Medications: Medication Dose/Rte/Freq Days Qty Entered Last Max Daily Dose Reviewed amLODIPine (NORVASC) 5 MG PO DAILY-PM 12/11/21 12/13/21 Strength: 5 MG TAB 1546 1217 hydrALAZINE (APRESOLINE) 50 MG PO BID 12/11/21 12/13/21 Strength: 50 MG TAB 1547 1217 HYDROCHLOROTHIAZIDE 25 MG PO DAILY 12/11/2104/04 (HYDRODIURIL) 1547 1217 Strength: 25 MG TAB LOSARTAN (COZAAR) 100 MG PO DAILY 12/11/2104/04 Strength: 100 MG TAB 1547 1217 METOPROLOL TARTRATE 25 MG PO TID 12/11/2104/04 (LOPRESSOR) 1549 1217 Strength: 25 MG TAB SERTRALINE (ZOLOFT) 25 MG PO DAILY 12/11/2104/04 Strength: 25 MG TAB 1550 1217 CHOLECALCIFEROL 5,000 UNITS PO DAILY 12/11/21 1 02/12/21 (VITAMIN D3) 1600 1217 (VITAMIN D3) Strength: 125 MCG (5,000 UNIT) TAB TRIAMCINOLONE 1 APPLIC TOPICAL BID 12/11/2104/04 ACETONIDE 1600 1217 (TRIAMCINOLONE 0.1% CREAM) Strength: 0.1 % CREAM ACETAMINOPHEN ER 650 MG PO 12/11/21 12/13/21 (TYLENOL ARTHRITIS PAIN) Q8H PRN PRN PAIN 1601 1217 Strength: 650 MG TAB.SA CYANOCOBALAMIN 5,000 MCG PO DAILY 12/11/2104/04 (VITAMIN B-12) 1601 1217 Strength: 1,000 MCG TAB Current Hospital Medications: Anti-Infective Agents Sig/Valente Start time Last Medication Dose Route Stop Time Status Admin Cefazolin Sodium 0 .STK-MED ONE 12/13 1415 DC 12/13 (KEFZOL OR ANCEF) IV 1452 Antihistamine Drugs Sig/Valente Start time Last Medication Dose Route Stop Time Status Admin Promethazine HCl 25 MG PACU ONCE PRN 12/13 1545 AC (PHENERGAN) PO 12/14 0133 Autonomic Drugs Sig/Valente Start time Last Medication Dose Route Stop Time Status Admin Glycopyrrolate 0 .STK-MED ONE 12/13 1503 DC (GLYCOPYRROLATE) .ROUTE Rocuronium [place] 0 .STK-MED ONE 12/13 1421 DC (ZEMURON) IV Succinylcholine 0 .STK-MED ONE 12/13 1421 DC Chloride IV (QUELICIN FLIPTOP) Blood Formation,Coagulation Sig/Valente Start time Last Medication Dose Route Stop Time Status Admin Clopidogrel Bisulfate 75 MG DAILY 12/13 1630 AC (Plavix) PO 01/12 1629 Heparin Sodium 0 .STK-MED ONE 12/13 1410 DC (HEPARIN SODIUM) .ROUTE 1452 Heparin Sodium/ 2,000 ML .STK-MED ONE 12/13 140 9 DC 12/13 Sodium Chloride IV 1452 (HEPARIN 2,000 UNITS/ NS 1,000mL) Cardiovascular Drugs Sig/Valente Start time Last Medication Dose Route Stop Time Status Admin Hydralazine HCl 50 MG BID 12/13 2100 AC (APRESOLINE) PO 01/12 2059 Amlodipine Besylate 5 MG QPM 12/13 1700 AC (NORVASC) PO 01/12 1659 Losartan Potassium 100 MG DAILY 12/13 1630 AC (COZAAR) PO 01/12 1629 Metoprolol Tartrate 25 MG TID 12/13 1630 AC (LOPRESSOR) PO 01/12 1629 Hydralazine HCl 5 MG PACU Q10MIN PRN PRN 12/13 1545 AC (APRESOLINE) IV 12/14 132 Labetalol HCl 5 MG PACU Q10MIN PRN PRN 12/13 15 45 AC (LABETALOL HCL) IV 12/14 013 Lidocaine HCl 0 .STK-MED ONE 12/13 1421 DC (XYLOCAINE) .ROUTE Lidocaine HCl 0 .STK-MED ONE 12/13 1223 DC (XYLOCAINE) .ROUTE Lidocaine HCl 2 ML PREOP ONCALL 12/11 1515 AC (LIDOCAINE HCL/PF) LOCAL 01/10 2359 Lidocaine HCl 2 ML PREOP ONCALL 12/11 1515 AC (LIDOCAINE HCL/PF) LOCAL 01/10 2359 Central Nervous System Agents Sig/Valente Start time Last Medication Dose Route Stop Time Status Admin Sertraline HCl 25 MG DAILY 12/14 0900 AC (ZOLOFT) PO 01/13 0859 Aspirin 81 MG DAILY 12/13 1630 AC (ASPIRIN) PO 01/12 1629 Fentanyl Citrate 100 MCG PACU Q10MIN PRN PRN 1545 AC (SUBLIMAZE) IV 12/14 132 Fentanyl Citrate 50 MCG PACU Q10MIN PRN PRN 2 1545 AC (SUBLIMAZE) IV 12/14 132 Hydrocodone Bitart/ 1 TAB PACU ONCE 12/13 1545 C KD Acetaminophen PO 12/14 013 (NORCO 5/325) Hydromorphone HCl 1 MG PACU Q10MIN PRN PRN 12/13 1545 AC (DILAUDID) IV 12/14 132 Hydromorphone HCl 0.5 MG PACU Q5MIN PRN PRN 1545 AC (DILAUDID) IV 12/14 132 Meperidine HCl 12.5 MG PACU ONCE PRN 12/13 1545 AC (DEMEROL 50MG/ML) IV 12/14 132 Morphine Sulfate 2 MG PACU Q10MIN PRN PRN 12/13 1545 AC (morphine SULFATE) IV 12/14 0133 Tramadol HCl 50 MG PACU ONCE 12/13 1545 CKD (ULTRAM) PO 12/14 0133 Fentanyl Citrate 0 .STK-MED ONE 12/13 142 DC (SUBLIMAZE) .ROUTE Propofol 20 ML .STK-MED ONE 12/13 142 DC (DIPRIVAN 200MG/20ML IV INJECTION) Acetaminophen 1,000 MG PREOP ONCALL 12/11 1515 C KD (TYLENOL EXTRA PO 01/10 2359 STRENGTH) Gabapentin 200 MG PREOP ONCALL 12/11 1515 CKD (NEURONTIN) PO 01/10 2359 Electrolytic, Caloric, And Nichoals Sig/Valente Start time Last Medication Dose Route Stop Time Status Admin Hydrochlorothiazide 25 MG DAILY 12/13 1630 AC (HYDRODIURIL) PO 01/12 1629 Sodium Chloride 250 ML ASDIR PRN 12/13 1630 AC (SODIUM CHLORIDE IV 01/12 1629 0.9%) Lactated Ringer's 1,000 ML PREOP ONCALL 12/11 1 515 AC (LACTATED RINGERS) IV 01/10 2359 Sodium Chloride 500 ML PREOP ONCALL 12/11 1515 AC (SODIUM CHLORIDE IV 01/10 2359 0.9%) Sodium Chloride 500 ML PREOP ONCALL 12/11 1515 AC (SODIUM CHLORIDE IV 01/10 2359 0.9%) Sodium Chloride 1,000 ML PREOP ONCALL 12/11 151 5 AC (SODIUM CHLORIDE IV 01/10 2359 0.9%) Sodium Chloride 5 ML ASDIR PRN 12/11 1515 AC (SODIUM CHLORIDE) IV 01/10 1514 Sodium Chloride 10 ML ASDIR PRN 12/11 1515 AC (SODIUM CHLORIDE) IV 01/10 1514 Sodium Chloride 250 ML ASDIR PRN 12/11 1515 AC (SODIUM CHLORIDE IV 01/10 1514 0.9%) Eye, Ear, Nose And Throat (Een Sig/Valente Start time Last Medication Dose Route Stop Time Status Admin Triamcinolone 1 APPLIC BID 12/13 2100 AC Acetonide TOPICAL 01/12 2059 (KENALOG 0.1% 15 GM CREAM) Dexamethasone Sodium 0 .STK-MED ONE 12/13 1421 DC Phosphate .ROUTE (DECADRON) Gastrointestinal Drugs Sig/Valente Start time Last Medication Dose Route Stop Time Status Admin Ondansetron HCl 4 MG PACU ONCE PRN 12/13 1545 A C (ZOFRAN) IV 12/14 013 Ondansetron HCl 0 .STK-MED ONE 12/13 1421 DC (ZOFRAN) .ROUTE Hormones And Synthetic Substit Sig/Valente Start time Last Medication Dose Route Stop Time Status Admin Insulin Human Lispro 0 PACU ONCE PRN 12/13 1545 AC (HUMALOG) SUBQ 12/14 013 Local Anesthetics (Parenteral) Sig/Valente Start time Last Medication Dose Route Stop Time Status Admin Ropivacaine 150 MG ASDIR PRN 12/13 1545 AC (NAROPIN 0.5% 150 MG/ LOCAL 12/14 013 30mL) Bupivacaine HCl 0 .STK-MED ONE 12/13 1410 DC (SENSORCAINE) .ROUTE 1452 Vitamins Sig/Valente Start time Last Medication Dose Route Stop Time Status Admin Cholecalciferol 5,000 INTL.UNITS DAILY 12/13 17 00 CKD (VITAMIN D) PO 01/12 1659 Allergies: Coded Allergies: No Known Allergies (12/11/21) Ambulatory status: Independent Review of Systems Constitutional: Denies: chills, fatigue, generalized weakness. Respiratory: Denies: pleurisy, pleuritic pain, pneumonia, SOB . Cardiovascular: Reports: edema. Denies: chest pain, orthopnea, p alpitations. GI: Denies: abdominal pain, nausea, vomiting. Psych: Denies: change in mental status. Physical Exam VS/I O Vital Signs: Date Time Temp Pulse Resp B/P B/P Pulse O2 O2 F low FiO2 Mean Ox Delivery Rate 12/13 1205 36.7 84 18 128/68 98 PATIENT WEIGHT: Weight (lb): 180 Weight (oz): 6.04 Weight (kg): 81.818 General appearance: alert, awake Neck: full range of motion, non-tender, no bruit /NL carotids, no JVD, no lymphadenopathy, no masses or swelling, normal t hyroid, supple/no meningismus Cardiovascular: bradycardia, normal capillary re fill, regular rate rhythm, normal heart sounds, BP/pulses equal bilat., no ectopy Respiratory: on oxygen, no distress Abdomen/GI: soft, non-tender Extremities: moves all, no edema-all extremities , normal sensory, normal tone Musculoskeletal: normal inspection Neuro/MASTER OCEAN: alert, oriented X 3, normal speech, n o motor deficits Skin: dry Psychiatry: no hallucinations, normal affect, no rmal judgment/insight Results Findings/Data: Laboratory Tests: 12/13 1511 Coagulation Activated Coag Time (74 - 137 SEC) 277 H Radiology data: Recent Impressions: RADIOLOGY - XR CHEST 1 V 12/13 1711 Report Impression - Status: SIGNED Entered: 12/13/2021 5755 IMPRESSION: Interval placement of occluder device in the exp ected region of the left atrial appendage. No acute cardiopulmonary disease. Impression By: Gregor Dozier M.D. Results: labs reviewed, vital signs reviewed, EK G personally reviewed, rhythm personally rev'd Diagnosis, Assessment Plan Problem List/A P: 1. Presence of Watchman left atrial appendage c losure device 2. Atrial fibrillation Plan discussed with: patient, daughter, nurse Free Text DxA P Notes Free Text DxA P Notes: 81 YO pleasant female with PMHx of atrial fibril lation, anemia who cannot tolerate oral anticoagulation. She underwent suc cesful elective watchman implantation and cardioversi on. She is doing well post-op. She will be observed overnight and discharge in the morning once stab le. 1. Atrial fibrillation S/p Watchman device impla ntation and cardioversion continue DAPT She will be observed overnight and discharge in the morning once stable. routine post-op care 2. Hypertension resume home medication, hold meds if hypotensive Quality: Gen Med Crit Care VTE Prophylaxis VTE prophylaxis initiated: no-patient low risk Current Medications Current medication review: I attest that the foregoing medication list in [facility] medical record is true, accurate, and complete to the best of my knowled ge. at 1755 Electronically Signed by Robbie Choi MD on at 0001 RPT #:[id number] END OF REPORT 2021-12-13 15:45:00-00:00 [id number] [address] PATIENT NAME: LIBERTY MERAZ ADMIT DATE: 12/13/21 ACCOUNT NO: [id number] [place] [facility] [place]GE[place] 81 REPORT TYPE: eELECTROCARDIOGRAM REPORT SEX: F ADMITTING PHYSICIAN:Robbie Choi MD ATTENDING PHYSICIAN:Robbie Choi MD Order: [id number] Test Reason : WATCHMAN Test Date/Time Stamp: SatDec 13 2021 15:45:16 Blood Pressure : / mmHG Vent. Rate : 062 BPM Atrial Rate : 062 BPM P-R Int : 178 ms QRS Dur : 082 ms QT Int : 444 ms P-R-T Axes : 080 027 001 degree s QTc Int : 450 ms Sinus rhythm with premature atrial complexes Nonspecific ST and T wave abnormality Abnormal ECG Confirmed by MD DOBSON GERARD ([id number]) on 12/20/19 9:14:45 PM Referred By: Jose Ramon Olivier Confirmed by:AUDREY ROGERS MD at 2114 PATIENT NAME: LIBERTY MERAZ 2021-12-13 15:22:00-00:00 [id number] [place] [address] PATIENT NAME: LIBERTY MERAZ ADMIT DATE: 12/13/21 ACCOUNT NO: [id number] ROOM NO: [id number] AGE: 82 REPORT TYPE: OPERATIVE REPORT SEX: F ADMITTING PHYSICIAN:Robbie Choi MD ATTENDING PHYSICIAN:Robbie Choi MD OPERATION DATE: 12/13/2021 PROCEDURE PERFORMED: 1. Left atrial appendage closure using a 24 mm W atchman FLX closure device. 2. Synchronized electric cardioversion into sinu s rhythm. INDICATION: Atrial fibrillat ion, high CHADS-VASc score with history of bleeding and falls. ACCESS: Right femoral vein, 16-Sudanese closed wit h [id number] suture. COMPLICATIONS: None. BLEEDING: Less than 50 mL DESCRIPTION OF PROCEDURE: After risks, benefits and alternatives were explained, the patient agreed to procedure and s igned informed consent. The patient was brought into the cardiac catheteriza tion laboratory, prepped and draped in the usual sterile fashion. General ane sthesia was applied by anesthesia team and JOURDAN probe was inserted and a left atrial appendage was clear. No thrombus was seen and then subsequentl y we did the synchronized electrical cardioversion usi ng 200 joules into sinus rhythm successfully. Then, I used the micropuncture kit to access t he right femoral vein using ultrasound guidance and placed 8-Sudanese [place] sheath and upgraded 16-Sudanese [place] sheath. Subsequently, gave a partial dose of heparin an d took an SL1 sheath over the wire into the SVC and over the pelvis ne edle inside into the low mid position. Transseptal counter puncture was done and subxiphoid puncture was performed and LA pressure was measured at 18 mmHg. Then, I sent a ProTrack wire into the left atrium, exchanged for the Watchman doubl e curve sheath and then took a pigtail through the Watchman sheath and navigated that i nto the appendage and then telescoped the Watchman sheath over it i nto the appendage. Appendage angiogram was performed and determined a 24 mm Watchman cl osure device will be suitable for closure. The device was prepped in the usual sterile fashion and then after taking the pigtail abdoul k after good bleed back and introduced the Watchman delivery system and the posi tive flush and advanced all the way to the appendage and locked in place and then device was deployed under fluoroscopy and JOURDAN guidance were evaluate d and they were all met, such device was released in position. After transseptal puncture, immediatel y full dose of heparin was given to show ST level above 250. After the kwadwo ce was released, removed the Watchman sheath with delivery system inside, out side the body and removed the Cook sheath and placed figur e-of-eight suture for closure with good hemostasis. CONCLUSION: PATIENT NAME: LIBERTY MERAZ 1. Successful electrical cardioversion into sinu s rhythm. 2. Successful left atrial appendage clos ure using a 24 mm Watchman FLX closure device. PLAN: Continue anticoagulants for 6 weeks. At th at time, we will perform JOURDAN to plan to discontinue anticoagulants permanentl y. Dictated By: Jose Ramon Olivier MD Date Dictated: 12/13/2021 15:22:51 Date Transcribed: 12/13/2021 20:51:25 SR/CAROL/AMY Receipt ID: [id number] Authenticated by Jose Ramon Olivier MD On 2022 01:19:16 PM Electronically Signed by Jose Ramon Olivier MD on at 0119 PATIENT NAME: LIBERTY MERAZ 2021-12-11 16:08:00-00:00 [id number] [place] [address] PATIENT NAME: LIBERTY MERAZ ADMIT DATE: ACCOUNT NO: [id number] ROOM NO: AGE: 81 REPORT TYPE: eELECTROCARDIOGRAM REPORT SEX: F ADMITTING PHYSICIAN: ATTENDING PHYSICIAN:Jose Ramon Olivier MD Order: [id number] Test Reason : PREOP Test Date/Time Stamp: SatDec 11 2021 16:08:56 Blood Pressure : / mmHG Vent. Rate : 094 BPM Atrial Rate : 241 BPM P-R Int : 000 ms QRS Dur : 078 ms QT Int : 354 ms P-R-T Axes : 000 082 113 degree s QTc Int : 442 ms Atrial fibrillation Septal infarct , age undetermined Abnormal ECG PRE_OP Confirmed by DELILAH LUGO MD ([id number]) on 022 5:29:33 PM Referred By: Jose Ramon Olivier Confirmed by:DELILAH SHIRLEY MD at 1729 PATIENT NAME: LIBERTY MERAZ
[2022-07-04] MEDS ORDERED: NA CHLORIDE 0.9% 500 ML ONE ×2 (14:56→18:19)
[2022-07-04 15:20] LABS: Absolute Lymphocytes (CBC) 1.5 K/uL (0.7-4.9); Hematocrit 33.2 % (36.0-45.0); Lymphocytes % 21.5 % (15.3-44.8); MCV 93.9 fL (80-100); MPV 8.7 fL (7.6-11.3); RBC Red Blood Cell Count 3.53 M/uL (3.86-4.86)
[2022-07-04 15:46] LABS: Albumin 3.4 g/dL (3.4-5.0); Bilirubin Direct 0.3 mg/dL (0-0.2); Bilirubin Indirect, Calculated 0.3 mg/dL (0.2-0.8); Bilirubin Total 0.6 mg/dL (0.2-1.0); Potassium 4.1 mEq/L (3.5-5.1); Troponin High Sensitivity 32.5 pg/mL (<58.9)
--- NOTE | 2022-07-04 16:54 | RAD REPORT ---
EXAM DESCRIPTION: Jose D Single View07/04/2022 3:07 pm CLINICAL HISTORY: Chest pain COMPARISON: 2021 FINDINGS: The lungs appear clear of acute infiltrate. The heart is normal size IMPRESSION: No acute abnormalities displayed
--- NOTE | 2022-07-04 16:54 | RAD REPORT ---
EXAM DESCRIPTION: CT - Abdomen Pelvis W Contrast - 07/04/2022 4:17 pm CLINICAL HISTORY: Abdominal pain COMPARISON: 2021 TECHNIQUE: Computed axial tomography of the abdomen pelvis was obtained. 100 cc Isovue-300 was admin istered intravenously. Oral contrast was not requested which limits evaluation of bowel and appendix All CT scans are performed using dose optimization technique as appropriate and may include automated exposure control or mA/KV adjustment according to patient size. FINDINGS: Cholecystectomy. Mild dilatation intrahepatic biliary tree. Mild dilatation common hepatic and common bile ducts. Multiple pancreatic cysts. The largest measures couple centimeters. Spleen and adrenals unremarkable. Small renal cysts. Diverticula stem from the colon. Minimal stranding adjacent to the sigmoid colon consistent with a mi nimal diverticulitis. 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 Nonemergent MRI recommended for further evaluation Mild prominence of the biliary tree presumably is physiologic in this elderly patient status post cho lecystectomy. This should be correlated with appropriate labs
[2022-07-04] MEDS ORDERED: AMOX/K CLAV 875 MG TAB ONE (17:41)
--- NOTE | 2022-07-04 17:50 | ER ---
Nurse's Notes [facility] Name: Grace Kapoor Age: 82 yrs Sex: Female : 1940 Arrival Date: 07/04/2022 Time: 14:00 Bed 5 Private MD: Bj Davenport Diagnosis: Diverticulitis of large intestine without perforation or abscess with bleeding;Dehydration Presentation: 07/04 14:23 Chief complaint: Patient states: right side chest pain started this morning, also iw having lower abd pain, has had diarrhea for past 2 days. Coronavirus screen: At this time, the client does not indicate any symptoms associated with coronavirus-19. Ebola Screen: Patient negative for fever greater than or equal to 101.5 degrees Fahrenheit, and additional compatible Ebola Virus Disease symptoms Patient denies exposure to infectious person. Patient denies travel to an Ebola-affected area in the 21 days before illness onset. No symptoms or risks identified at this time. Initial Sepsis Screen: Does the patient meet any 2 criteria? No. Patient's initial sepsis screen is negative. Does the patient have a suspected source of infection? No. Patient's initial sepsis screen is negative. Risk Assessment: Do you want to hurt yourself or someone else? Patient reports no desire to harm self or others. Onset of symptoms was July 04, 2022. 14:23 Method Of Arrival: Ambulatory iw 14:23 Acuity: TATA 3 iw Triage Assessment: 14:30 General: Appears in no apparent distress. Behavior is calm, cooperative, appropriate bp for age. Pain: Complains of pain in chest. EENT: No deficits noted. Neuro: No deficits noted. Cardiovascular: Reports chest pain. Respiratory: No deficits noted. GI: Reports diarrhea. : No signs and/or symptoms were reported regarding the genitourinary system. Derm: No deficits noted. Musculoskeletal: No deficits noted. Historical: - Allergies: 14:24 No Known Allergies; iw - PMHx: 14:24 a fib; Depression; Hypertension; Ulcers; iw - PSHx: 14:24 watchman; iw - Immunization history:: Adult Immunizations Pneumococcal vaccine is up to date, Flu vaccine status is unknown. - Social history:: Smoking status: Patient denies any tobacco usage or history of. Screenin:[address] [facility] ED Fall Risk Assessment (Adult) History of falling in the last 3 months, bp including since admission No falls in past 3 months (0 pts). Abuse screen: Denies threats or abuse. Denies injuries from another. Nutritional screening: No deficits noted. Tuberculosis screening: No symptoms or risk factors identified. Assessment: 14:30 General: SEE TRIAGE NOTE. bp 15:30 Reassessment: Patient appears in no apparent distress at this time. No changes from kc6 previously documented assessment. Patient and/or family updated on plan of care and expected duration. Pain level reassessed. Patient is alert, oriented x 3, equal unlabored respirations, skin warm/dry/pink. 17:50 Reassessment: Patient appears in no apparent distress at this time. Patient and/or bp family updated on plan of care and expected duration. Pain level reassessed. 18:17 Reassessment: PT TBDC AFTER IVF. bp Vital Signs: 14:23 BP 110 / 53; Pulse 94; Resp 16; Temp 97.4; Pulse Ox 100% ; Weight 81.65 kg; Height 5 iw ft. 5 in. ; Pain 7/10; 15:54 BP 129 / 52; Pulse 96; Resp 18 S; Pulse Ox 94% on R/A; kc6 17:50 BP 138 / 74; Pulse 93; Resp 16; Pulse Ox 99% ; bp 14:23 Body Mass Index 29.95 (81.65 kg, 165.1 cm) iw 14:23 Pain Scale: Adult iw ED Course: 14:05 Patient arrived in ED. im 14:05 Bj Davenport MD is Private Physician. im 14:24 Triage completed. iw 14:25 Arm band placed on. iw 14:28 Stephen Santos MD is Attending Physician. bs3 14:43 Patient placed in an exam room, on a stretcher. ll1 15:00 Melba Diggs, RN is Primary Nurse. vg1 15:08 XRAY Chest (1 view) In Process Unspecified. EDMS 15:09 Inserted saline lock: 22 gauge in right hand, using aseptic technique. Blood collected. bp 15:10 Patient has correct armband on for positive identification. Bed in low position. Call bp light in reach. Side rails up X2. Client placed on continuous cardiac and pulse oximetry monitoring. NIBP monitoring applied. 15:13 Initial lab(s) drawn, by me, sent to lab. em1 16:19 CT Abd/Pelvis - IV Contrast Only In Process Unspecified. EDMS 17:49 Bj Davenport MD is Referral Physician. bs3 18:08 Abhijit Joseph MD is Hospitalizing Provider. bs3 18:15 Bj Davenport MD is Referral Physician. bs3 18:55 No provider procedures requiring assistance completed. IV discontinued, intact, kc6 bleeding controlled, No redness/swelling at site. Pressure dressing applied. Administered Medications: 15:09 Drug: NS 0.9% IV 500 ml Route: IV; Rate: bolus; Site: right hand; bp 18:08 Follow up: IV Status: Completed infusion; IV Intake: 500ml bp 17:30 Drug: Amoxicillin-Clavulanate PO 875 mg Route: PO; bp 18:09 Follow up: Response: No adverse reaction bp 18:17 Drug: NS 0.9% IV 500 ml Route: IV; Rate: bolus; Site: right hand; bp 18:56 Follow up: Response: No adverse reaction; IV Status: Completed infusion; IV Intake: kc6 500ml Medication: 18:55 VIS not applicable for this client. kc6 Intake: 18:08 IV: 500ml; Total: 500ml. bp 18:56 IV: 500ml; Total: 1000ml. kc6 Outcome: 17:49 Discharge ordered by MD. bs3 18:09 Decision to Hospitalize by Provider. bs3 18:17 Discharge ordered by MD. bs3 18:55 Discharged to home via wheelchair, with family. kc6 18:55 Condition: stable 18:55 Discharge instructions given to patient, Instructed on discharge instructions, follow up and referral plans. medication usage, Demonstrated understanding of instructions, follow-up care, medications, Prescriptions given X 1. 18:57 Patient left the ED. kc6 Signatures: Dispatcher [employer] EDMS Halie Landers RN RN iw Martinez, Eric em1 Malick Márquez RN RN bp Garcia, Victoria, RN RN vg1 Ramona Angulo RN RN ll1 Margaret Lomeli RN RN kc6 Stephen Santos MD MD bs3 Venessa Voss
--- NOTE | 2022-07-04 17:50 | EDPHYS ---
Physician Documentation [facility] Name: Grace Kapoor Age: 82 yrs Sex: Female : 1940 Arrival Date: 07/04/2022 Time: 14:00 Bed 5 Private MD: Bj Davenport ED Physician Stephen Santos HPI: 07/04 15:02 This 82 yrs old Female presents to ER via Ambulatory with complaints of Chest bs3 Pain. 15:02 Ms. Kapoor is a pleasant 82-year-old female with a history of A-fib status post Watchman bs3 procedure not on anticoagulation who presents with 2 complaints she notes the past 2 mornings she has had significant diarrhea and then today she had chest pain after having diarrhea she took Imodium and the diarrhea has improved however she still has left lower abdominal pain she denies fevers or chills she denies shortness of breath she notes a vague chest discomfort she also feels a little bit weak and tired no nausea no vomiting she notes having similar symptoms before seen by Dr. Olivier in the hospital. Historical: - Allergies: 14:24 No Known Allergies; iw - PMHx: 14:24 a fib; Depression; Hypertension; Ulcers; iw - PSHx: 14:24 watchman; iw - Immunization history:: Adult Immunizations Pneumococcal vaccine is up to date, Flu vaccine status is unknown. - Social history:: Smoking status: Patient denies any tobacco usage or history of. ROS: 15:02 Constitutional: Negative for fever, chills bs3 15:02 All other systems are negative. Exam: 15:02 Constitutional: This is a well developed, well nourished patient who is awake, alert, bs3 and in no acute distress. Head/Face: Normocephalic, atraumatic. Eyes: Pupils equal round and reactive to light, extra-ocular motions intact. Lids and lashes normal. ENT: mmm, no posterior phyarngeal erythema Neck: Trachea midline, no thyromegaly, no neck stiffness Chest/axilla: Normal chest wall appearance and motion. Nontender with no deformity. No lesions are appreciated. Cardiovascular: Irregularly irregular Respiratory: Lungs have equal breath sounds bilaterally, clear to auscultation, no respiratory distress Abdomen/GI: Slight left lower quadrant tenderness no rebound or guarding Back: No spinal tenderness. No costovertebral tenderness. Full range of motion. Skin: Warm, dry with normal turgor. Normal color with no rashes, no lesions, and no evidence of cellulitis. MS/ Extremity: Pulses equal, no cyanosis. Neurovascular intact. Full, normal range of motion. Neuro: Awake and alert, GCS 15, oriented to person, place, time, and situation. Cranial nerves II-XII grossly intact. Motor strength 5/5 in all extremities. Sensory grossly intact. 15:02 A-fib at [address] elevations or depressions QTc 471 as interpreted by myself Vital Signs: 14:23 BP 110 / 53; Pulse 94; Resp 16; Temp 97.4; Pulse Ox 100% ; Weight 81.65 kg; Height 5 iw ft. 5 in. ; Pain 7/10; 15:54 BP 129 / 52; Pulse 96; Resp 18 S; Pulse Ox 94% on R/A; kc6 17:50 BP 138 / 74; Pulse 93; Resp 16; Pulse Ox 99% ; bp 14:23 Body Mass Index 29.95 (81.65 kg, 165.1 cm) iw 14:23 Pain Scale: Adult iw MDM: 14:28 Patient medically screened. bs3 15:02 Differential diagnosis: abnormal EKG, acute myocardial infarction, coronary artery bs3 disease chest wall pain, gastroesophageal reflux disease (GERD), pancreatitis, diarrhea, colitis, diverticulitis. Data reviewed: vital signs, nurses notes. 16:42 ED course: lfts slightly elevated, given the diarrhea, possible hep a? will order bs3 hepatitis panel, bili normal, not consistent with cbd stone, bnp 2x prior, possible congestion from CHF. 17:08 ED course: d/w radiology, he rec outpatient mrcp/mri, will cover with antibiotics and bs3 discuss inpatient vs outpatient management. . 17:17 ED course: I had a shared decision making conversation with the patient, shes bs3 comfortable going home, and will f/u with her pcp with 72 hours and return with any concerning symptoms sooner, advised to f/u for MRI/MRCP. 17:21 ED course: Her lungs are clear while her proBNP is elevated and has been elevated in bs3 the past she is not in acute heart failure her troponin was negative. 17:48 ED course: pt reassessed. still feeling well, will dc home, return prec given. . bs3 18:04 ED course: after dc, pt ambulated and became unsteady, felt weak with icnreased hr, pt bs3 notes this is not her baseline, will admit for hydration, and serial exams. . 18:14 ED course: unfortunately, unable to keep here after discussion with hospitalist given bs3 ct and lft, rec transfer, pt wanted to go home if she needed to be transferred, return prec given. . 07/04 14:45 Order name: Basic Metabolic Panel; Complete Time: 16:40 3 07/04 14:45 Order name: CBC with Diff; Complete Time: 16:40 3 07/04 14:45 Order name: NT PRO-BNP; Complete Time: 16:40 [facility] 07/04 14:45 Order name: Troponin HS; Complete Time: 16:40 3 07/04 14:45 Order name: LFT's; Complete Time: 16:40 [facility] 07/04 16:42 Order name: Hepatitis Panel; Complete Time: 09:05 [facility] 07/04 16:51 Order name: Hepatitis A IgM; Complete Time: 09:05 3 07/04 14:45 Order name: XRAY Chest (1 view); Complete Time: 17:02 3 07/04 15:02 Order name: CT Abd/Pelvis - IV Contrast Only; Complete Time: 17:02 3 07/04 14:45 Order name: EKG; Complete Time: 14:46 3 07/04 14:45 Order name: Cardiac monitoring; Complete Time: 15:00 [facility] 07/04 14:45 Order name: EKG - Nurse/Tech; Complete Time: 14:47 3 07/04 14:45 Order name: IV Saline Lock; Complete Time: 15:09 3 07/04 14:45 Order name: Labs collected and sent; Complete Time: 15:09 [facility] 07/04 14:45 Order name: O2 Per Protocol; Complete Time: 15:00 [facility] 07/04 14:45 Order name: O2 Sat Monitoring; Complete Time: 15:00 bs3 Administered Medications: 15:09 Drug: NS 0.9% IV 500 ml Route: IV; Rate: bolus; Site: right hand; bp 18:08 Follow up: IV Status: Completed infusion; IV Intake: 500ml bp 17:30 Drug: Amoxicillin-Clavulanate PO 875 mg Route: PO; bp 18:09 Follow up: Response: No adverse reaction bp 18:17 Drug: NS 0.9% IV 500 ml Route: IV; Rate: bolus; Site: right hand; bp 18:56 Follow up: Response: No adverse reaction; IV Status: Completed infusion; IV Intake: kc6 500ml Disposition Summary: 07/04/22 18:17 Discharge Ordered Location: Home(07/04/22 18:17) bs3 Problem: new(07/04/22 18:17) bs3 Symptoms: have improved(07/04/22 18:17) bs3 Condition: Stable(07/04/22 18:17) bs3 Diagnosis - Diverticulitis of large intestine without perforation or abscess with bleeding bs3 - Dehydration(07/04/22 18:17) bs3 Followup: bs3 - With: Bj Davenport MD - When: 48 Hours - Reason: Re-evaluation by your physician Discharge Instructions: - Discharge Summary Sheet bs3 - Dehydration, Elderly bs3 - Diverticulitis, [id number]-qm-[id number] bs3 Forms: - Medication Reconciliation Form bs3 - Thank You Letter bs3 - Antibiotic Education bs3 - Prescription Opioid Use bs3 Signatures: Dispatcher [employer] EDHalie Sexton RN TITO iw Malick Márquez RN RN bp Stephen Santos MD MD bs3 Margaret Lomeli RN kc6 Corrections: (The following items were deleted from the chart) 18:08 17:49 Home bs3 bs3 18:08 17:49 new bs3 bs3 18:08 17:49 have improved bs3 bs3 18:08 17:49 Stable bs3 bs3 18:08 17:49 Diverticulitis of large intestine without perforation or abscess without bleeding bs3 bs3 18:08 18:05 Dehydration bs3 bs3 18:15 18:09 Observation bs3 bs3 18:15 18:09 OmitAbhijit fried bs3 bs3 18:15 18:09 Telemetry/MedSurg (observation) bs3 bs3 18:15 18:09 Fair bs3 bs3 18:15 18:09 new bs3 bs3 18:15 18:09 are unchanged bs3 bs3 18:15 18:09 Standard bs3 bs3 18:15 18:09 bs3 bs3 18:15 18:09 Diverticulitis of intestine, part unspecified, without perforation or abscess bs3 without bleeding bs3 18:15 18:09 Dehydration bs3 bs3
[2022-07-04 19:04] LABS: Hepatitis B Core IgM Nonreactive (Nonreactive); Hepatitis B surface AG Interp. Nonreactive (Nonreactive); Hepatitis C Virus Ab Nonreactive (Nonreactive)
[2022-07-04 19:15] VITALS: TEMP 97.4
[2022-07-04 19:18] VITALS: BP 138/74; O2SAT 99
--- NOTE | 2022-07-05 05:34 | EKG ---
Test Date: 2022-07-04 Test Time: 14:31:40 Exercise Equipment Specialist: HIWOT MEASUREMENT RESULTS: Intervals: Rate: 86 OR: QRSD: 74 QT: 394 QTc: 471 [place]: P: OR: QRS: 17 T: 70 INTERPRETIVE STATEMENTS: Atrial fibrillation Possible Anterior infarct, age undetermined Abnormal ECG Compared to ECG 01/08/2022 02:11:03 Myocardial infarct finding now present Sinus bradycardia no longer present Electronically Signed On 07-05-22 05:33:21 CDT by Ramakrishna Medina
== END 2022-07-04 18:57 | disposition home or self-care (01) ==
LOC: ER 14:00
DX: K57.32 Diverticulitis of large intestine without perforation or abscess without bleeding (principal); E86.0 Dehydration; R07.9 Chest pain, unspecified; I48.91 Unspecified atrial fibrillation; I10 Essential (primary) hypertension
CPT/HCPCS: 85025; 80048; 36415; 80076; 84484; 86709; 83880; 80074; 74177; 71045; Q9967; J7040 ×2; 93005

== ENCOUNTER 2023-02-19 10:00 | Day surgery (SDC) | payer OTHER ==
[2023-02-14 15:19] LABS: Absolute Lymphocytes (CBC) 1.8 K/uL (0.7-4.9); Hematocrit 38.5 % (36.0-45.0); Lymphocytes % 26.7 % (15.3-44.8); MCV 94.2 fL (80-100); Platelets 206 thou/uL (152-406); RBC Red Blood Cell Count 4.09 M/uL (3.86-4.86)
[2023-02-14 15:34] LABS: Potassium 4.1 mEq/L (3.5-5.1); Protime INR 0.98
--- NOTE | 2023-02-15 13:39 | EKG ---
Test Date: 2023-02-14 Test Time: 15:55:56 Ob Gyn Physician Assistant: SIMEON MEASUREMENT RESULTS: Intervals: Rate: 98 MA: QRSD: 80 QT: 354 QTc: 451 [place]: P: MA: QRS: 52 T: 33 INTERPRETIVE STATEMENTS: Atrial fibrillation Nonspecific ST abnormality, probably digitalis effect Abnormal ECG Compared to ECG 07/04/2022 14:31:40 ST (T wave) deviation now present Myocardial infarct finding no longer present Electronically Signed On 02-15-23 13:38:49 CHEMICAL RESEARCH ENGINEER by Jose Ramon Olivier
[2023-02-19] MEDS ORDERED: NA CHLORIDE 0.9% 500 ML ONE (10:26)
[2023-02-19] MEDS ORDERED: propofoL 200 MG/20 ML VIAL IV ONE (11:59)
[2023-02-19] MEDS ORDERED: LIDOCAINE 2% MPF 5 ML VIAL ONE (11:59)
[2023-02-19] MEDS ORDERED: EPHEDRINE SULF 50 MG/ML VIAL ONE (11:59)
--- NOTE | 2023-02-19 13:04 | OP ---
Date of Procedure: 02/19/2023 Surgeon: LATA SANDY Procedure Performed: Transesophageal echocardiogram guided electrical cardioversion. Indication: Atrial fibrillation. Description Of Procedure: After risks, benefits, alternatives were explained, patient agreed to proc edure and signed informed consent. Patient was brought into OR room 5. After appropriate time-out, propofol was given by Anesthesia and patient was in deep sedation. Then JOURDAN probe was inserted. Pat ient has a Watchman in place and no leak or thrombus seen. JOURDAN probe was removed and synchronized 20 0 joules electrical cardioversion was performed successfully converting her rhythm into normal sinus rhythm. Conclusion: Successful JOURDAN-guided electrical cardioversion. SR/IQRA Voice ID: [id number] Report ID: [id number]
[2023-02-19 13:30] VITALS: BP 110/74; O2SAT 99
--- NOTE | 2023-02-20 11:11 | TEE ---
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 TRANSEOPHAGEAL ECHOCARDIOGRAM INSERTED, NO DIFFICULTY 2. NORMAL LEFT VENTRICULAR EJECTION FRACTION 55-60% 3. NO LEFT ATRIAL APPENDAGE OR LEFT ATRIAL THOMBUS TECHNOLOGIST: [employer] ROSS
--- NOTE | 2023-02-20 17:36 | EKG ---
Test Date: 2023-02-19 Test Time: 12:31:43 Dry Sand Molder: OSCAR MEASUREMENT RESULTS: Intervals: Rate: 54 VA: 188 QRSD: 84 QT: 418 QTc: 396 [place]: P: 77 VA: 188 QRS: 30 T: 54 INTERPRETIVE STATEMENTS: Sinus bradycardia with premature atrial complexes Cannot rule out Anterior infarct, age undetermined Abnormal ECG Compared to ECG 02/14/2023 15:55:56 Atrial premature complex(es) now present Myocardial infarct finding now present Atrial fibrillation no longer present ST (T wave) deviation no longer present Electronically Signed On 02-20-23 17:34:07 ELECTRICAL PROSPECTING OPERATOR by Jose Ramon Olivier
== END 2023-02-19 13:23 | disposition home or self-care (01) ==
LOC: CCL 10:00
PROVIDERS: ATTEND Internal Medicine
DX: I48.11 Longstanding persistent atrial fibrillation (principal); I10 Essential (primary) hypertension; E78.2 Mixed hyperlipidemia; I65.21 Occlusion and stenosis of right carotid artery; Z87.891 Personal history of nicotine dependence; Z79.899 Other long term (current) drug therapy; Z82.49 Family history of ischemic heart disease and other diseases of the circulatory system
CPT/HCPCS: 93005 ×2; 93312; 85025; 80048; 36415; 85610; 85730; 92960; J2704; J2001; J7040

== ENCOUNTER 2023-10-19 11:29 | Emergency (ER) | payer OTHER ==
--- OUTSIDE RECORDS SUMMARY | 2023-10-19 11:32 | XMS REPORT | Clinical Summary ---
Author Name Unknown Organization [facility] Address [address] [place] [address] Care Team Providers Care Distributor Sales Consultant Name Role Phone Bj Davenport MD Unavailable [phone] Israel Haque MD Primary Care Provider [phone] Allergies No known active allergies Medications Medication Sig Dispensed Refills Start Date End Date Status hydroCHLOROthiazide (HYDRODIURIL) 12.5 mg tablet Take 1 tablet by mouth daily. 07/01/2020 Active metoprolol tartrate (LOPRESSOR) 25 mg tablet Take 25 mg by mouth daily. 11/08/2018 Active hydrALAZINE (APRESOLINE) 10 mg tablet Take 1 tablet by mouth twice daily. 08/22/2020 Active rosuvastatin (CRESTOR) 20 mg tablet Take 20 mg by mouth daily. 04/04/2020 Active traMADol (ULTRAM) 50 mg tablet Take 1 tablet by mouth as needed. 07/07/2020 Active sertraline (ZOLOFT) 25 mg tablet Take 1 tablet by mouth daily. 07/10/2020 Active amLODIPine (NORVASC) 5 mg tablet Take 1 tablet by mouth daily. 06/20/2020 Active famotidine (PEPCID) 40 mg tablet Take 1 tablet by mouth daily. 06/20/2020 Active acetaminophen (Tylenol Arthritis Pain) 650 MG CR tablet Take 650 mg by mouth every 8 (eight) hours as needed for mild pain. Active ibuprofen 200 mg cap Take 3 capsules by mouth as needed. Active loperamide (Imodium A-D) 2 mg tablet Take 2 mg by mouth daily. Active pancrelipase (Creon) 12,000 units-38,000 units-60,000 units capsuleIndications:Cy st of pancreas,Exocrine pancreatic insufficiency Take by mouth 1-2 with meals, 1 with snacks. 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 Glomerulonephritis Chronic kidney disease Hypertension Arrhythmia Gastroesophageal reflux disease Anemia Social History Tobacco Use Types Packs/Day Years Used Date Smoking Tobacco: Former Cigarettes Smokeless Tobacco: Never Comments:social use Alcohol Use Standard Drinks/Week Comments Yes 7 (1 standard drink = 0.6 oz pur e alcohol) Sex and Gender Information Value Date Recorded Sex Assigned at Not on file Gender Identity Female 08/31/2020 8:52 AM CDT Sexual Orientation Not on file Job Start Date Occupation Industry Not on file Not on file Not on file Obstetrics History Plan of Treatment Health Maintenance Due Date Last Done Comments Pneumococcal Vaccine: 65+ Years (1 of 1 - PCV) 007 COVID-19 Vaccine ( - 2022-24 season) 2023 Influenza Vaccine (#1) 2023 Care Teams Distributor Sales Consultant Relationship Specialty Start Date End Date Bj Davenport MD [address] [place] [phone] [email or web address] - External Referring Internal Medicine 07/14/20 Israel Haque MD [address] [place] [phone] [email or web address] PCP - General Surgical Oncology 08/10/20
--- NOTE | 2023-10-19 14:42 | RAD REPORT ---
EXAM DESCRIPTION: RAD - Knee Left 3 View - 10/19/2023 2:33 pm CLINICAL HISTORY: PAIN COMPARISON: No comparisons TECHNIQUE: Left knee, 3 views. FINDINGS: No fracture, dislocation or periosteal reaction. Left total knee arthroplasty hardware in satisfactory alignment. Mild suprapatellar soft tissue swelling versus small effusion. Enthesopathy a t the quadriceps tendon attachment. No soft tissue abnormality. Clinical concerns for internal derangement or occult bony injury could be further assessed with MR im aging. IMPRESSION: No acute abnormalities apart from mild suprapatellar soft tissue swelling.
[2023-10-19] MEDS ORDERED: FENTANYL CITR 100 MCG/2 ML ONE ×2 (14:55→16:21)
[2023-10-19] MEDS ORDERED: NA CHLORIDE 0.9% 500 ML ONE (14:57)
[2023-10-19] MEDS ORDERED: COLCHICINE 0.6 MG TAB ONE ×2 (14:57→16:06)
[2023-10-19] MEDS ORDERED: ONDANSETRON 4 MG/2 ML VIAL ONE (14:57)
[2023-10-19 14:59] LABS: Absolute Eosinophils 0.1 K/uL (0-0.5); Absolute Lymphocytes (CBC) 1.6 K/uL (0.7-4.9); Absolute Monocytes 0.6 K/uL (0.1-1.3); Absolute Neutrophil 5.8 K/uL (1.8-8.0); Basophils % 0.5 % (0-1.3); Eosinophils % 0.8 % (0-4.4); Hematocrit 37.5 % (36.0-45.0); Hemoglobin 12.6 g/dL (12.0-15.0); Lymphocytes % 20.2 % (15.3-44.8); MCH 31.3 pg (27.0-35.0); MCHC 33.4 g/dL (32.0-36.0); MCV 93.6 fL (80-100); MPV 7.9 fL (7.6-11.3); Neutrophils % 71.5 % (41.7-73.7); Platelets 154 thou/uL (152-406); RBC Red Blood Cell Count 4.01 M/uL (3.86-4.86); Red Cell Distribution Width 13.4 % (12.1-15.2)
[2023-10-19 15:15] LABS: Albumin 3.4 g/dL (3.4-5.0); Anion Gap 10.9 mEq/L (5.0-15.0); Bilirubin Total 0.4 mg/dL (0.2-1.0); Globulin 3.3 g/dL (2.3-3.5); Potassium 3.9 mEq/L (3.5-5.1); Protein, Total 6.7 g/dL (6.4-8.2); Uric Acid 6.9 mg/dL (2.6-6.0)
--- NOTE | 2023-10-19 16:53 | EDPHYS ---
Physician Documentation [facility] Name: Grace Kapoor Age: 83 yrs Sex: Female : 1940 Arrival Date: 10/19/2023 Time: 11:29 Bed 11 Private MD: ED Physician Luis Fernando Nickerson HPI: 10/18 16:38 This 83 yrs old Female presents to ER via Wheelchair with complaints of Foot radha Pain, Leg Pain. 16:38 The patient presents with pain, that is acute. The complaints affect the right foot, radha dorsum of right foot and right first toe. Historical: - Allergies: 11:53 No Known Allergies; ll1 - PMHx: 11:53 a fib; Depression; Hypertension; Ulcers; ll1 - PSHx: 11:53 watchman; ll1 - Immunization history:: Adult Immunizations up to date. - Infectious Disease History:: Denies. - Social history:: Smoking status: Patient denies any tobacco usage or history of. ROS: 16:38 Constitutional: Negative for fever, chills, and weight loss, Eyes: Negative for injury, radha pain, redness, and discharge, ENT: Negative for injury, pain, and discharge, Neck: Negative for injury, pain, and swelling, Cardiovascular: Negative for chest pain, palpitations, and edema, Respiratory: Negative for shortness of breath, cough, wheezing, and pleuritic chest pain, Abdomen/GI: Negative for abdominal pain, nausea, vomiting, diarrhea, and constipation, Back: Negative for injury and pain, : Negative for injury, bleeding, discharge, and swelling, Skin: Negative for injury, rash, and discoloration, Neuro: Negative for headache, weakness, numbness, tingling, and seizure, Psych: Negative for depression, anxiety, suicide ideation, homicidal ideation, and hallucinations, Allergy/Immunology: Negative for hives, rash, and allergies, Endocrine: Negative for neck swelling, polydipsia, polyuria, polyphagia, and marked weight changes, Hematologic/Lymphatic: Negative for swollen nodes, abnormal bleeding, and unusual bruising, 16:38 MS/extremity: Positive for decreased range of motion, pain, swelling, of the left knee, righ foot pain , no trauma , no swelling, Exam: 16:38 Constitutional: This is a well developed, well nourished patient who is awake, alert, radha and in no acute distress. Head/Face: Normocephalic, atraumatic. Eyes: Pupils equal round and reactive to light, extra-ocular motions intact. Lids and lashes normal. Conjunctiva and sclera are non-icteric and not injected. Cornea within normal limits. Periorbital areas with no swelling, redness, or edema. ENT: Nares patent. No nasal discharge, no septal abnormalities noted. Tympanic membranes are normal and external auditory canals are clear. Oropharynx with no redness, swelling, or masses, exudates, or evidence of obstruction, uvula midline. Mucous membranes moist. Neck: Trachea midline, no thyromegaly or masses palpated, and no cervical lymphadenopathy. Supple, full range of motion without nuchal rigidity, or vertebral point tenderness. No Meningismus. Chest/axilla: Normal chest wall appearance and motion. Nontender with no deformity. No lesions are appreciated. Cardiovascular: Regular rate and rhythm with a normal S1 and S2. No gallops, murmurs, or rubs. Normal PMI, no JVD. No pulse deficits. Respiratory: Lungs have equal breath sounds bilaterally, clear to auscultation and percussion. No rales, rhonchi or wheezes noted. No increased work of breathing, no retractions or nasal flaring. Abdomen/GI: Soft, non-tender, with normal bowel sounds. No distension or tympany. No guarding or rebound. No evidence of tenderness throughout. Back: No spinal tenderness. No costovertebral tenderness. Full range of motion. Female : Normal external genitalia. Skin: Warm, dry with normal turgor. Normal color with no rashes, no lesions, and no evidence of cellulitis. Neuro: Awake and alert, GCS 15, oriented to person, place, time, and situation. Cranial nerves II-XII grossly intact. Motor strength 5/5 in all extremities. Sensory grossly intact. Cerebellar exam normal. Normal gait. Psych: Awake, alert, with orientation to person, place and time. Behavior, mood, and affect are within normal limits. 16:38 Musculoskeletal/extremity: ROM: full active range of motion, full passive range of motion, Circulation is intact in all extremities. Sensation intact. Compartment Syndrome exam of affected extremity: is normal. Joints: the left knee displays swelling, tenderness, DVT Exam: pain, swelling, tenderness, that is mild, of the left leg, of the left knee, Vital Signs: 11:54 BP 128 / 67; Pulse 70; Resp 17; Temp 97; Pulse Ox 98% ; Weight 81.65 kg; Height 5 ft. 5 ll1 in. ; Pain 10/10; 11:54 Body Mass Index 29.95 (81.65 kg, 165.1 cm) ll1 11:54 Pain Scale: Adult ll1 [place] Coma Score: 16:38 Eye Response: spontaneous(4). Motor Response: obeys commands(6). Verbal Response: radha oriented(5). Total: 15. MDM: 12:07 Patient medically screened. radha 16:41 Differential diagnosis: contusion, tendonitis, sprain, arthritis, gout, cellulitis. [facility] Data reviewed: vital signs, nurses notes, lab test result(s), EKG, radiologic studies, doppler, plain films. Consideration of Admission/Observation Escalation of care including admission/observation considered. I considered the following discharge prescriptions or medication management in the emergency department Medications were administered in the Emergency Department. See MAR. Independent interpretation of the following test(s) in the Emergency Department X-Ray: My interpretation is left knee x ray. Test considered but Not performed: MRI: no mri left knee not available. Historians other than the Patient: Family Member: family and friends. Care significantly affected by the following chronic conditions: a fib, depression, htn, pud. 10/18 14:02 Order name: CBC with Diff; Complete Time: 16:05 [facility] 10/18 14:02 Order name: Comprehensive Metabolic Panel; Complete Time: 16:05 [facility] 10/18 14:02 Order name: Uric Acid; Complete Time: 16:05 [facility] 10/18 16:38 Order name: CRP [facility] 10/18 14:02 Order name: Knee Left 3 View XRAY; Complete Time: 16: [facility] 10/18 16:21 Order name: US Extremity Venous W Compression Nazario [facility] Administered Medications: 15:03 Drug: NS 0.9% IV 500 ml IV at bolus once Route: IV; Rate: bolus; Site: left forearm; hb 15:03 Drug: fentaNYL (PF) IVP 25 mcg IVP once Route: IVP; Site: left forearm; hb 15:35 Follow up: Response: No adverse reaction hb 15:03 Drug: Ondansetron IVP 4 mg IVP once; over 2 minutes Route: IVP; Site: left forearm; hb 17:35 Follow up: Response: No adverse reaction hb 15:03 Drug: colchicine 0.6 mg 1.2 mg PO once Route: PO; hb 17:35 Follow up: Response: No adverse reaction hb 16:27 Drug: fentaNYL (PF) IVP 25 mcg IVP once Route: IVP; Site: left forearm; hb 17:15 Follow up: Response: No adverse reaction hb 16:27 Drug: colchicine 0.6 mg 0.6 mg PO once; repeat in 1 hour Route: PO; hb 17:35 Follow up: Response: No adverse reaction hb 17:35 Drug: Trimethoprim-Sulfamethoxazole PO (160 mg-800 mg (DS) 1 tablet PO once Route: PO; hb 17:36 Follow up: Response: Medication administered at discharge. hb 17:35 Drug: Cephalexin PO 500 mg PO once Route: PO; hb 17:36 Follow up: Response: Medication administered at discharge. hb Disposition Summary: 10/19/23 16:53 Discharge Ordered Notes: Location: Home radha Problem: new radha Symptoms: have improved radha Condition: Stable rahda Diagnosis - Pain in left knee radha - Pain in right foot radha - Gout, unspecified ardha - Cellulitis of other parts of limb - left knee radha Followup: radha - With: Private Physician - When: 2 - 3 days - Reason: Recheck today's complaints, Continuance of care, Re-evaluation by your physician Followup: radha - With: Yvan Santa MD - When: 2 - 3 days - Reason: Recheck today's complaints, Re-evaluation by your physician Discharge Instructions: - Discharge Summary Sheet radha - Joint Pain radha - Arthritis radha - Cellulitis, Adult radha - Gout radha - Musculoskeletal Pain radha - RICE Therapy for Routine Care of Injuries radha - RICE Therapy for Routine Care of Injuries, Lwgp-gd-Ealt radha - Cellulitis, Adult, Mabr-kz-Vtbm radha - Low-Purine Eating Plan radha - Gout, Oeuw-da-Xfip radha - Arthritis, Plzo-xk-Kjdt radha - Chronic Knee Pain, Adult, Glbj-me-Jloe radha Forms: - Medication Reconciliation Form radha - Antibiotic Education radha - Prescription Opioid Use radha - Patient Portal Instructions [facility] - Leadership Thank You Letter [facility] Prescriptions: - acetaminophen-codeine 300-30 mg Oral tablet - take 2 tablet ORAL route every 6 hours; 20 tablet; Refills: 0, Product radha Selection Permitted - colchicine 0.6 mg Oral tablet - take 2 tablet ORAL route once; 10 tablet; Refills: 0, Product Selection [facility] Permitted - Cephalexin 500 mg Oral Capsule - take 1 capsule ORAL route every 6 hours for 10 days; 40 capsule; Refills: 0, [facility] Product Selection Permitted - Bactrim DS 800-160 mg Oral Tablet - take 1 tablet ORAL route every 12 hours for 7 days; 14 tablet; Refills: 0, [facility] Product Selection Permitted Signatures: Dispatcher [employer] EDMS Luis Fernando Nickerson MD MD cha Baxter, Heather, RN RN Ramona Angulo RN RN ll1 Corrections: (The following items were deleted from the chart) 14:02 14:02 CBC+H.LAB.BRZ ordered. EDMS EDMS 14:02 14:02 COMPREHENSIVE METABOLIC PANEL+C.LAB.BRZ ordered. EDMS EDMS 14:02 14:02 Urinalysis+U.LAB.BRZ ordered. EDMS EDMS 14:02 14:02 URIC ACID+C.LAB.BRZ ordered. EDMS EDMS
--- NOTE | 2023-10-19 16:53 | ER ---
Nurse's Notes [facility] Name: Grace Kapoor Age: 83 yrs Sex: Female : 1940 Arrival Date: 10/19/2023 Time: 11:29 Bed 11 Private MD: Diagnosis: Pain in left knee;Pain in right foot;Gout, unspecified;Cellulitis of other parts of limb-left knee Presentation: 10/18 11:54 Chief complaint: Patient states: L knee pain since Saturday. R foot pain started ll1 yesterday. States she thought it was gout, but her gout medication isn't helping. Coronavirus screen: Client denies travel out of the [place] in the last 14 days. At this time, the client does not indicate any symptoms associated with coronavirus-19. Ebola Screen: Patient denies travel to an Ebola-affected area in the 21 days before illness onset. Initial Sepsis Screen: Does the patient meet any 2 criteria? No. Patient's initial sepsis screen is negative. Does the patient have a suspected source of infection? No. Patient's initial sepsis screen is negative. Risk Assessment: Do you want to hurt yourself or someone else? Patient reports no desire to harm self or others. Onset of symptoms was October 16, 2023. 11:54 Method Of Arrival: Wheelchair ll1 11:54 Acuity: TATA 3 ll1 Historical: - Allergies: 11:53 No Known Allergies; ll1 - PMHx: 11:53 a fib; Depression; Hypertension; Ulcers; ll1 - PSHx: 11:53 watchman; ll1 - Immunization history:: Adult Immunizations up to date. - Infectious Disease History:: Denies. - Social history:: Smoking status: Patient denies any tobacco usage or history of. Screenin:05 [facility] ED Fall Risk Assessment (Adult) History of falling in the last 3 months, hb including since admission No falls in past 3 months (0 pts) Confusion or Disorientation No (0 pts) Intoxicated or Sedated Yes (3 pts) Impaired Gait Yes (1 pt) Mobility Assist Device Used Yes (1 pt) Altered Elimination Yes (1 pt) Score/Fall Risk Level 3 or more points = High Risk Oriented to surroundings, Maintained a safe environment, Educated pt \T\ family on fall prevention, incl call for assistance when getting out of bed, Assessed \T\ reinforced patient's understanding of fall precautions. Abuse screen: Denies threats or abuse. Denies injuries from another. Nutritional screening: No deficits noted. Tuberculosis screening: No symptoms or risk factors identified. Assessment: 15:05 General: Appears in no apparent distress. Behavior is calm, cooperative. Pain: Pain hb currently is 8 out of 10 on a pain scale. Neuro: Level of Consciousness is awake, alert, obeys commands, Oriented to person, place, time, situation. Cardiovascular: Patient's skin is warm and dry. Respiratory: Respiratory effort is even, unlabored, Respiratory pattern is regular, symmetrical. GI: No signs and/or symptoms were reported involving the gastrointestinal system. : No signs and/or symptoms were reported regarding the genitourinary system. EENT: No signs and/or symptoms were reported regarding the EENT system. Derm: Skin is pink, warm \T\ dry. Musculoskeletal: Reports severe bilateral knee pain, worse on left. Vital Signs: 11:54 BP 128 / 67; Pulse 70; Resp 17; Temp 97; Pulse Ox 98% ; Weight 81.65 kg; Height 5 ft. 5 ll1 in. ; Pain 10/10; 11:54 Body Mass Index 29.95 (81.65 kg, 165.1 cm) ll1 11:54 Pain Scale: Adult ll1 [place] Coma Score: 16:38 Eye Response: spontaneous(4). Motor Response: obeys commands(6). Verbal Response: radha oriented(5). Total: 15. ED Course: 11:36 Patient arrived in ED. sj2 11:54 Arm band placed on. ll1 11:55 Triage completed. ll1 12:07 Luis Fernando Nickerson MD is Attending Physician. radha 13:02 Patient placed in an exam room, on a stretcher. db 14:35 Knee Left 3 View XRAY In Process Unspecified. EDMS 14:51 Comprehensive Metabolic Panel Sent, Uric Acid Sent. hb 14:51 Initial lab(s) drawn, by me, sent to lab. Inserted saline lock: 24 gauge in left hb forearm, using aseptic technique. Blood collected. Flushed with 10 mL NS. 15:03 Brit Dozier, RN is Primary Nurse. hb 15:06 Patient has correct armband on for positive identification. Bed in low position. Call hb light in reach. Provided Education on: use of call light, tests, result times. 16:50 US Extremity Venous W Compression Nazario In Process Unspecified. EDMS 16:54 Yvan Santa MD is Referral Physician. radha Administered Medications: 15:03 Drug: NS 0.9% IV 500 ml IV at bolus once Route: IV; Rate: bolus; Site: left forearm; hb 15:03 Drug: fentaNYL (PF) IVP 25 mcg IVP once Route: IVP; Site: left forearm; hb 15:35 Follow up: Response: No adverse reaction hb 15:03 Drug: Ondansetron IVP 4 mg IVP once; over 2 minutes Route: IVP; Site: left forearm; hb 17:35 Follow up: Response: No adverse reaction hb 15:03 Drug: colchicine 0.6 mg 1.2 mg PO once Route: PO; hb 17:35 Follow up: Response: No adverse reaction hb 16:27 Drug: fentaNYL (PF) IVP 25 mcg IVP once Route: IVP; Site: left forearm; hb 17:15 Follow up: Response: No adverse reaction hb 16:27 Drug: colchicine 0.6 mg 0.6 mg PO once; repeat in 1 hour Route: PO; hb 17:35 Follow up: Response: No adverse reaction hb 17:35 Drug: Trimethoprim-Sulfamethoxazole PO (160 mg-800 mg (DS) 1 tablet PO once Route: PO; hb 17:36 Follow up: Response: Medication administered at discharge. hb 17:35 Drug: Cephalexin PO 500 mg PO once Route: PO; hb 17:36 Follow up: Response: Medication administered at discharge. hb Medication: 15:06 VIS not applicable for this client. hb Outcome: 16:53 Discharge ordered by . [facility] 17:50 Patient left the ED. ll1 Signatures: Dispatcher [employer] EDWI Luis Fernando Nickerson MD MD cha Baxter, Heather, RN RN hb Lewis, Lynsay, RN RN 1 Hilaria Shore RN RN db Johnican, Sonceria sj2 Corrections: (The following items were deleted from the chart) 11:56 11:54 Chief complaint: Patient states: L knee pain since Saturday. R foot pain started ll1 today. States she thought it was gout, but her gout medication isn't helping. ll1 15:04 15:03 Urinalysis+U.LAB.BRZ drawn and sent. hb hb 15: 15:03 CBC+H.LAB.BRZ drawn and sent. hb hb 15: 15:03 COMPREHENSIVE METABOLIC PANEL+C.LAB.BRZ drawn and sent. hb hb 15: 15:03 URIC ACID+C.LAB.BRZ drawn and sent. hb hb 15: 15:03 Urinalysis+U.LAB.BRZ drawn and sent. hb hb
[2023-10-19] MEDS ORDERED: SMZ./TMP. 800/160 MG TABLET ONE (17:13)
[2023-10-19] MEDS ORDERED: CEPHALEXIN 250 MG CAP ONE (17:13)
[2023-10-19 18:03] VITALS: BP 128/67; TEMP 97; O2SAT 98
--- NOTE | 2023-10-19 18:16 | RAD REPORT ---
EXAM DESCRIPTION: US - Extrem Venous W Compress Nazario - 10/19/2023 4:48 pm CLINICAL HISTORY: Pain, swelling COMPARISON: None. TECHNIQUE: Real-time sonographic evaluation of the bilateral lower extremity deep venous systems was performed. FINDINGS: Normal compressibility, flow augmentation, phasic flow and spontaneous flow is identified in both the left and right lower extremity deep venous systems. No intraluminal filling defects seen. Nonspecific fat focal swelling versus ill-defined 1.5 x 1.0 cm collection in the subcutaneous soft ti ssues of the knee anteriorly. IMPRESSION: No DVT in either lower extremity. Nonspecific superficial anterior knee fluid collection, possibly a seroma, versus focal edema.
== END 2023-10-19 17:50 | disposition home or self-care (01) ==
LOC: ER 11:29
DX: L03.116 Cellulitis of left lower limb (principal); M79.671 Pain in right foot; M10.9 Gout, unspecified
CPT/HCPCS: 85025; 36415; 84550; 80053; 86140; 73562; 93970; 96375; 96374; 99284; J3010 ×2; J2405; J7040

== ENCOUNTER 2023-10-21 12:39 | Observation (INO) | payer OTHER ==
--- OUTSIDE RECORDS SUMMARY | 2023-10-21 12:43 | XMS REPORT | Clinical Summary ---
Author Name Unknown Organization [facility] Address [address] [place] [address] Care Team Providers Care Etl Developer Name Role Phone Bj Davenport MD Unavailable [phone] Israel Haque MD Primary Care Provider [phone] Allergies No known active allergies Medications Medication [...] 2023 Influenza Vaccine (#1) 2023 Care Teams Etl Developer Relationship Specialty Start Date End Date Bj Davenport MD [address] [place] [phone] [email or web address] [email or web address] - External Referring Internal Medicine 07/14/20 Israel Haque MD [address] [place] [phone] [email or web address] PCP - General Surgical Oncology 08/10/20
[2023-10-21] MEDS ORDERED: ONDANSETRON 4 MG/2 ML VIAL ONE (13:12)
--- NOTE | 2023-10-21 13:15 | RAD REPORT ---
EXAM DESCRIPTION: CT - Ct Stroke Brain Wo Cont - 10/21/2023 1:08 pm CLINICAL HISTORY: Dizziness COMPARISON: none TECHNIQUE: Computed axial tomography of the head was obtained. All CT scans are performed using dose optimization technique as appropriate and may include automated exposure control or mA/KV adjustment according to patient size. FINDINGS: An intracranial bleed is not seen . The ventricles are normal in caliber. No extra-axial fluid collection is noted. Mild low-density within periventricular, deep and subcortical white matter likely ischemic changes se condary to small vessel disease Fluid within the sinuses/ mastoids is not seen. IMPRESSION: No acute intracranial abnormality is seen. If patient's symptoms persist MRI of the bra in would be recommended Dr Helms of the emergency room was notified at 1:05 p.m. on October 21, 2023
--- NOTE | 2023-10-21 13:23 | RAD REPORT ---
EXAM DESCRIPTION: CTHead angio10/21/2023 1:08 pm CLINICAL HISTORY: Dizziness COMPARISON: none TECHNIQUE: 100 cc Isovue [address] angiogram of the head was obtained. 3D MIPS reconstruction performed. All CT scans are performed using dose optimization technique as appropriate and may include automated exposure control or mA/KV adjustment according to patient size. FINDINGS: The basilar, anterior cerebral, middle cerebral and posterior cerebral arteries do not dem onstrate a significant stenosis Mild calcified plaque distal internal carotid arteries An aneurysm is not seen No large vessel occlusion IMPRESSION: No significant abnormality is displayed
--- NOTE | 2023-10-21 13:24 | RAD REPORT ---
EXAM DESCRIPTION: Rosemarie Angio10/21/2023 1:08 pm CLINICAL HISTORY: Dizziness COMPARISON: None TECHNIQUE: 100 cc Isovue [address] angiogram of the neck was obtained. 3D MIPS reconstruction performed. All CT scans are performed using dose optimization technique as appropriate and may include automated exposure control or mA/KV adjustment according to patient size. FINDINGS: Visualized aortic arch and great vessels did not demonstrate a significant abnormality Ipoj-lx-sgeoszcy calcified plaque right proximal carotid artery appears to result in an approximately 35 40% stenosis Mild plaque within remainder common carotid, internal carotid and external carotid arteries. Vertebral arteries unremarkable No dissection is seen. No high-grade stenosis [place] Mild stenosis 0 to 49 % Moderate stenosis 50-69% Severe stenosis 70-99% IMPRESSION: No significant vascular abnormality is displayed
[2023-10-21 13:30] LABS: Absolute Basophils 0.1 K/uL (0-0.5); Absolute Lymphocytes (CBC) 0.7 K/uL (0.7-4.9); Absolute Monocytes 0.4 K/uL (0.1-1.3); Absolute Neutrophil 4.5 K/uL (1.8-8.0); Basophils % 1.9 % (0-1.3); Eosinophils % 0.6 % (0-4.4); Hematocrit 35.3 % (36.0-45.0); Hemoglobin 11.6 g/dL (12.0-15.0); Lymphocytes % 12.1 % (15.3-44.8); MCH 31.3 pg (27.0-35.0); MCV 94.9 fL (80-100); MPV 8.9 fL (7.6-11.3); Monocytes % 7.2 % (3.3-12.3); Neutrophils % 78.2 % (41.7-73.7); Platelets 138 thou/uL (152-406); RBC Red Blood Cell Count 3.72 M/uL (3.86-4.86); Red Cell Distribution Width 13.7 % (12.1-15.2)
[2023-10-21 13:42] LABS: PTT, Activated Partial Thromb 24.9 SECONDS (24.3-36.9); Protime INR 1.07
[2023-10-21 13:50] LABS: ALT/SGPT 127 U/L (13-56); AST/SGOT 123 U/L (15-37); Albumin/Globulin Ratio 0.9 (1.1-1.8); Alkaline Phosphatase 127 U/L (45-117); Anion Gap 11.7 mEq/L (5.0-15.0); BUN Blood Urea Nitrogen 38 mg/dL (7-18); Bicarbonate 23 mEq/L (21-32); Bilirubin Total 0.3 mg/dL (0.2-1.0); Globulin 3.5 g/dL (2.3-3.5); Glomerular Filtration Rate 28 ml/min (=/>90); Glucose Level 101 mg/dL (74-106); Magnesium 1.6 mg/dL (1.6-2.4); Potassium 3.7 mEq/L (3.5-5.1); Protein, Total 6.5 g/dL (6.4-8.2); Sodium Level 137 mEq/L (136-145); Troponin High Sensitivity 29.2 pg/mL (<58.9)
[2023-10-21 13:55] LABS: Bilirubin Direct < 0.2 mg/dL (0-0.2); Bilirubin Indirect, Calculated 0.1 mg/dL (0.2-0.8)
--- NOTE | 2023-10-21 14:01 | EDPHYS ---
Physician Documentation [facility] Name: Grace Kapoor Age: 83 yrs Sex: Female : 1940 Arrival Date: 10/21/2023 Time: 12:39 Bed IW10 Private MD: ED Physician Janes Beal HPI: 10/20 13:44 This 83 yrs old Female presents to ER via Wheelchair with complaints of General sp3 Weakness, Nausea. 13:44 83-year-old female with history of atrial fibrillation status post Watchman procedure 2 sp3 years ago, hypertension, peptic ulcer disease, CKD now presents to the ED with chief complaint of aphasia and near syncope episode while on the phone with her family. Patient called PCP who advised her to come to the ED. Patient is still in atrial fibrillation but not on any anticoagulants. She denies any current or ongoing symptoms or medical prodrome prior to the event. She denies headache, neck pain, chest pain, shortness of breath abdominal pain, diarrhea, full syncope, motor weakness, or any other signs or symptoms on ROS at this time. She did endorse vomiting x 2 without blood or mucus.. Historical: - Allergies: 12:58 No Known Allergies; cm10 - Home Meds: 12:58 aspirin 81 mg Oral TbEC 2 tabs daily [Active]; cm10 - PMHx: 12:58 a fib; Depression; Hypertension; Ulcers; Kidney disease; cm10 - PSHx: 12:58 watchman; cm10 - Immunization history:: Adult Immunizations up to date. - Infectious Disease History:: Denies. - Social history:: Smoking status: Patient denies any tobacco usage or history of. ROS: 13:45 Constitutional: Negative for fever, chills, and weight loss, Eyes: Negative for injury, sp3 pain, redness, and discharge, ENT: Negative for injury, pain, and discharge, Neck: Negative for injury, pain, and swelling, Respiratory: Negative for shortness of breath, cough, wheezing, and pleuritic chest pain, Abdomen/GI: Negative for abdominal pain, nausea, vomiting, diarrhea, and constipation, Back: Negative for injury and pain, : Negative for injury, bleeding, discharge, and swelling, MS/Extremity: Negative for injury and deformity, Skin: Negative for injury, rash, and discoloration, Psych: Negative for depression, anxiety, suicide ideation, homicidal ideation, and hallucinations, Allergy/Immunology: Negative for hives, rash, and allergies, Endocrine: Negative for neck swelling, polydipsia, polyuria, polyphagia, and marked weight changes, Hematologic/Lymphatic: Negative for swollen nodes, abnormal bleeding, and unusual bruising, 13:45 All other systems are negative, Exam: 13:45 Constitutional: This is a well developed, well nourished patient who is awake, alert, sp3 and in no acute distress. Head/Face: Normocephalic, atraumatic. Eyes: Pupils equal round and reactive to light, extra-ocular motions intact. Lids and lashes normal. Conjunctiva and sclera are non-icteric and not injected. Cornea within normal limits. Periorbital areas with no swelling, redness, or edema. Neck: Trachea midline, no thyromegaly or masses palpated, and no cervical lymphadenopathy. Supple, full range of motion without nuchal rigidity, or vertebral point tenderness. No Meningismus. Chest/axilla: Normal chest wall appearance and motion. Nontender with no deformity. No lesions are appreciated. Respiratory: Lungs have equal breath sounds bilaterally, clear to auscultation and percussion. No rales, rhonchi or wheezes noted. No increased work of breathing, no retractions or nasal flaring. Abdomen/GI: Soft, non-tender, with normal bowel sounds. No distension or tympany. No guarding or rebound. No evidence of tenderness throughout. Back: No spinal tenderness. No costovertebral tenderness. Full range of motion. Skin: Warm, dry with normal turgor. Normal color with no rashes, no lesions, and no evidence of cellulitis. MS/ Extremity: Pulses equal, no cyanosis. Neurovascular intact. Full, normal range of motion. Neuro: Awake and alert, GCS 15, oriented to person, place, time, and situation. Cranial nerves II-XII grossly intact. Motor strength 5/5 in all extremities. Sensory grossly intact. Cerebellar exam normal. Normal gait. Psych: Awake, alert, with orientation to person, place and time. Behavior, mood, and affect are within normal limits. 13:45 ECG was reviewed by the Attending Physician. EKG demonstrates atrial fibrillation with ventricular capture 100 bpm with normal axis, nonspecific diffuse ST/T changes without evidence of acute ischemia. Vital Signs: 12:56 BP 104 / 58; Pulse 89; Resp 18; Temp 97.3; Pulse Ox 97% on R/A; Weight 83.91 kg; Height cm10 5 ft. 5 in. ; Pain 6/10; 13:05 BP 132 / 58; Pulse 109; Resp 18; Pulse Ox 99% on R/A; db 13:30 BP 113 / 68; Pulse 96; Resp 18; Pulse Ox 99% on R/A; db 14:00 BP 109 / 47; Pulse 91; Resp 16; Pulse Ox 96% on R/A; db 14:30 BP 119 / 48; Pulse 92; Resp 16; Pulse Ox 97% on R/A; db 16:30 BP 115 / 54; Pulse 88; Resp 14; Pulse Ox 100% on R/A; db 17:30 BP 119 / 78; Pulse 80; Resp 18; Pulse Ox 100% on R/A; db 12:56 Body Mass Index 30.79 (83.91 kg, 165.1 cm) cm10 12:56 Pain Scale: Adult cm10 NIH Stroke Scale Scores: 13:15 NIHSS Score: 0 db MDM: 12:52 Patient medically screened. sp3 13:46 Data reviewed: vital signs, nurses notes, lab test result(s), EKG, radiologic studies. sp3 ED course: 83-year-old female with aphasia and near syncope now resolved. Differential diagnosis includes TIA, CVA, electrolyte abnormality, ACS, other intracranial process, among others. CT scans and angiograms of the head and neck are negative. Labs pending. Will admit to primary care physician Dr. Davenport with neurology consultation.. 10/20 12:54 Order name: Basic Metabolic Panel; Complete Time: 14:45 sp3 10/20 12:54 Order name: CBC with Diff; Complete Time: 14:45 3 10/20 12:54 Order name: Hepatic Function; Complete Time: 14:45 3 10/20 12:54 Order name: High Sensitivity Troponin; Complete Time: 14:45 sp3 10/20 12:54 Order name: Magnesium; Complete Time: 14:45 3 10/20 12:54 Order name: Protime (+inr); Complete Time: 13:47 3 10/20 12:54 Order name: Ptt, Activated; Complete Time: 13:47 sp3 10/20 13:21 Order name: Glucose, Ancillary Testing; Complete Time: 13:25 EDMS 10/20 13:23 Order name: Glucose, Ancillary Testing EDFL 10/20 13:40 Order name: Manual Differential; Complete Time: 14:45 EDMS 10/20 16:21 Order name: Creatine Phosphokinase EDFL 10/20 16:21 Order name: Creatine Phosphokinase EDFL 10/20 16:21 Order name: Lipid Profile EDFL 10/20 16:21 Order name: Lipid Profile EDFL 10/20 16:21 Order name: Troponin High Sensitivity EDFL 10/20 16:21 Order name: Troponin High Sensitivity EDFL 10/20 16:21 Order name: Troponin High Sensitivity EDFL 10/20 12:54 Order name: CT Neck Angio; Complete Time: 13:25 3 10/20 12:54 Order name: CT Stroke Brain w/o Contrast; Complete Time: 13:25 3 10/20 12:54 Order name: Stroke CXR 1 View; Complete Time: 14:45 3 10/20 13:02 Order name: Head angio; Complete Time: 13:25 EDMS 10/20 16:21 Order name: Echo with Doppler EDFL 10/20 16:21 Order name: Carotid Artery Bilateral EDFL 10/20 16:21 Order name: CONS Physician Consult EDFL 10/20 16:21 Order name: IRF Screen EDFL 10/20 12:54 Order name: Accucheck; Complete Time: 14:10 sp3 10/20 12:54 Order name: Cardiac monitoring; Complete Time: 14:10 3 10/20 12:54 Order name: EKG - Nurse/Tech; Complete Time: 14:10 sp3 10/20 12:54 Order name: IV Saline Lock; Complete Time: 14:10 sp3 10/20 12:54 Order name: Labs collected and sent; Complete Time: 14:10 sp3 10/20 12:54 Order name: NPO; Complete Time: 14:10 sp3 10/20 12:54 Order name: O2 Per Protocol; Complete Time: 14:10 sp3 10/20 12:54 Order name: O2 Sat Monitoring; Complete Time: 14:10 sp3 10/20 12:54 Order name: Stroke Swallow Screen; Complete Time: 14:10 sp3 Administered Medications: 14:24 Drug: Aspirin PO 325 mg PO once Route: PO; db 15:00 Follow up: Response: No adverse reaction db Point of Care Testing: Blood Glucose: 13:08 Blood Glucose: 92 mg/dL; db Ranges: Critical Glucose Levels:Adult <50 mg/dl or >400 mg/dl <40 mg/dl or >180 mg/dl Disposition Summary: 10/21/23 14:00 Hospitalization Ordered Notes: Hospitalization Status: Observation sp3 Provider: Bj Davenport sp3 Condition: Stable sp3 Problem: an acute exacerbation sp3 Symptoms: have worsened sp3 Bed/Room Type: Standard sp3 Location: Telemetry/MedSurg (observation)(10/21/23 16:35) bd Room Assignment: 410(10/21/23 16:35) bd Diagnosis - Transient cerebral ischemic attack, unspecified sp3 Forms: - Medication Reconciliation Form sp3 - SBAR form sp3 - Leadership Thank You Letter sp3 NIH Stroke Scale - NIH Stroke Score Date: 10/21/2023 Time: 13:15 Total Score = 0 10. Dysarthria (speech clarity - read or repeat words) - 0(Normal) 11. Extinction and Inattention (visual/tactile/auditory/spatial/personal) - 0(No abnormality) 1a. Level of Consciousness (LOC) - 0(Alert) 1b. Level of Consciousness (LOC) (Month \T\ Age) - 0(Both) 1c. LOC Commands (Open \T\ Closes Eyes/Beam Department Supervisor) - 0(Both) 2. Best Gaze (Lateral Gaze Paresis) - 0(Normal) 3. Visual Field Loss - 0(No visual loss) 4. Facial Palsy - 0(Normal) 5a. Left Arm: Motor (10-second hold) - 0(No drift) 5b. Right Arm: Motor (10-second hold) - 0(No drift) 6a. Left Leg: Motor (5-second hold - always test supine) - 0(No drift) 6b. Right Leg: Motor (5-second hold - always test supine) - 0(No drift) 7. Limb Ataxia (finger/nose \T\ heel/kelly - test with eyes open) - 0(Absent) 8. Sensory Loss (pinprick arms/legs/face) - 0(Normal) 9. Best Language: Aphasia (description/naming/reading) - 0(No aphasia) Initials: db Signatures: Dispatcher [employer] EDMS Yuko Samuel bd Janes Beal MD MD sp3 Hilaria Shore, RN RN db Kianna Childers RN RN cm10 Corrections: (The following items were deleted from the chart) 12:54 12:54 BASIC METABOLIC PANEL+C.LAB.BRZ ordered. EDMS EDMS 12:54 12:54 CBC+H.LAB.BRZ ordered. EDMS EDMS 12:54 12:54 HEPATIC FUNCTION+C.LAB.BRZ ordered. EDMS EDMS 12:54 12:54 Troponin High Sensitivity+C.LAB.BRZ ordered. EDMS EDMS 12:54 12:54 MAGNESIUM+C.LAB.BRZ ordered. EDMS EDMS 12:54 12:54 PROTIME (+INR)+COAG.LAB.BRZ ordered. EDMS EDMS 12:54 12:54 PTT, ACTIVATED+COAG.LAB.BRZ ordered. EDMS EDMS 12:54 12:54 Neck Angio+CT.RAD.BRZ ordered. EDMS EDMS 12:54 12:54 CT-STROKE BRAIN W/O CONTRAST+CT.RAD.BRZ ordered. EDMS EDMS 12:55 12:55 Chest Single View+RAD.RAD.BRZ ordered. EDMS EDMS 15:24 14:00 Telemetry/MedSurg (observation) sp3 bd 15:24 14:00 sp3 bd 16:35 15:24 [facility] ER HOLD bd bd 16:35 15:24 ERHOLD- bd bd
--- NOTE | 2023-10-21 14:01 | ER ---
Nurse's Notes [facility] Name: Grace Kapoor Age: 83 yrs Sex: Female : 1940 Arrival Date: 10/21/2023 Time: 12:39 Bed IW10 Private MD: Diagnosis: Transient cerebral ischemic attack, unspecified Presentation: 10/20 12:56 Chief complaint: Patient states: WAS ON THE PHONE THIS MORNING AND HAD AN EPISODE OF cm10 APHASIA WITH DIZZINESS AND GENERALIZED WEAKNESS BETWEEN [id number]. PT REPORTS THAT HER SYMPTOMS HAVE RESOLVED BUT IS STILL FEEL WEAK. PT ALSO NOTED TO BE VOMITING. Coronavirus screen: Client denies travel out of the [place] in the last 14 days. At this time, the client does not indicate any symptoms associated with coronavirus-19. Ebola Screen: Patient denies travel to an Ebola-affected area in the 21 days before illness onset. No symptoms or risks identified at this time. Initial Sepsis Screen: Does the patient meet any 2 criteria? No. Patient's initial sepsis screen is negative. Does the patient have a suspected source of infection? No. Patient's initial sepsis screen is negative. Risk Assessment: Do you want to hurt yourself or someone else? Patient reports no desire to harm self or others. Onset of symptoms was October 21, 2023. 12:56 Method Of Arrival: Wheelchair cm10 12:56 Acuity: TATA 2 cm10 12:58 No acute neurological deficit is noted. Pre-hospital glucose is not applicable to this db patient. Triage Assessment: 12:53 The onset of the patients symptoms was October 21, 2023 at 10:00. GI: Reports nausea, db vomiting. 12:59 General: Appears in no apparent distress. comfortable, Behavior is calm, cooperative. cm10 Neuro: No deficits noted. Level of Consciousness is awake, alert, obeys commands, Oriented to person, place, time, situation, Appropriate for age. Respiratory: No deficits noted. Airway is patent Respiratory effort is even, unlabored, Respiratory pattern is regular, symmetrical. Stroke Activation: Symptom onset < 3 hours Physician: ED Attending; Name: ; Notified At: ; Arrived At: Physician: Mid-Level Provider; Name: ; Notified At: ; Arrived At: Physician: [not used]; Name: ; Notified At: ; Arrived At: Physician: [not used]; Name: ; Notified At: ; Arrived At: Physician: [not used]; Name: ; Notified At: ; Arrived At: Historical: - Allergies: 12:58 No Known Allergies; cm10 - Home Meds: 12:58 aspirin 81 mg Oral TbEC 2 tabs daily [Active]; cm10 - PMHx: 12:58 a fib; Depression; Hypertension; Ulcers; Kidney disease; cm10 - PSHx: 12:58 watchman; cm10 - Immunization history:: Adult Immunizations up to date. - Infectious Disease History:: Denies. - Social history:: Smoking status: Patient denies any tobacco usage or history of. Screenin:53 [facility] ED Fall Risk Assessment (Adult) History of falling in the last 3 months, db including since admission No falls in past 3 months (0 pts) Confusion or Disorientation No (0 pts) Intoxicated or Sedated No (0 pts) Impaired Gait No (0 pts) Mobility Assist Device Used No (0 pt) Altered Elimination No (0 pt) Score/Fall Risk Level 0 - 2 = Low Risk Oriented to surroundings, Maintained a safe environment. Abuse screen: Denies threats or abuse. Denies injuries from another. Nutritional screening: No deficits noted. Tuberculosis screening: No symptoms or risk factors identified. Assessment: 12:55 General: CODE STROKE CALLED AT 1253. cm10 13:12 GI: Abdomen is non-distended, Pt is actively vomiting Abd is soft Abd is non tender. db 13:15 VAN Scoring: Arm Drift: Patients demonstrates NO arm weakness. Patient is VAN Negative. db Visual Disturbance: No visual disturbance noted. Aphasia: No aphasia noted. Neglect: No neglect noted. [place] Swallow Protocol Exclusion Criteria: Exclusion Criteria Result: Proceed Brief Cognitive Screen What is your name? Normal, Where are you right now? Normal, What year is it? Normal. Oral Mechanism Examination Facial Symmetry: Normal, Motion: Normal, Lip Closure: Normal, Oral Mechanism Result: Normal. 3 oz Water Swallow Challenge: Pt able to drink all water without stopping, coughing, choking or throat clearing: Yes Result: PASS Notified: Janes Beal MD. TNKase (Tenecteplase) Screening: Contraindications: Other: PHYSICIAN DISCRETION. Reassessment: Patient appears in no apparent distress at this time. Patient and/or family updated on plan of care and expected duration. Pain level reassessed. Patient is alert, oriented x 3, equal unlabored respirations, skin warm/dry/pink. Pain: Denies pain. Neuro: Level of Consciousness is awake, alert, obeys commands, Oriented to person, place, time, situation, Reports dizziness. GI: Reports nausea, vomiting. 13:54 Reassessment: Patient appears in no apparent distress at this time. Patient and/or db family updated on plan of care and expected duration. Pain level reassessed. Patient is alert, oriented x 3, equal unlabored respirations, skin warm/dry/pink. XRAY AT BEDSIDE. 14:52 Reassessment: Patient appears in no apparent distress at this time. Patient and/or db family updated on plan of care and expected duration. Pain level reassessed. Patient is alert, oriented x 3, equal unlabored respirations, skin warm/dry/pink. 16:00 Reassessment: Patient appears in no apparent distress at this time. Patient and/or db family updated on plan of care and expected duration. Pain level reassessed. Patient is alert, oriented x 3, equal unlabored respirations, skin warm/dry/pink. 17:05 Reassessment: REPORT FAXED TO 4TH FLOOR. bp 17:55 Reassessment: Patient appears in no apparent distress at this time. Patient and/or db family updated on plan of care and expected duration. Pain level reassessed. Patient is alert, oriented x 3, equal unlabored respirations, skin warm/dry/pink. AMBULATORY TO RESTROOM PRIOR TO TRANSFER TO ADMISSION ROOM Patient states feeling better. Patient states symptoms have improved. Vital Signs: 12:56 BP 104 / 58; Pulse 89; Resp 18; Temp 97.3; Pulse Ox 97% on R/A; Weight 83.91 kg; Height cm10 5 ft. 5 in. ; Pain 6/10; 13:05 BP 132 / 58; Pulse 109; Resp 18; Pulse Ox 99% on R/A; db 13:30 BP 113 / 68; Pulse 96; Resp 18; Pulse Ox 99% on R/A; db 14:00 BP 109 / 47; Pulse 91; Resp 16; Pulse Ox 96% on R/A; db 14:30 BP 119 / 48; Pulse 92; Resp 16; Pulse Ox 97% on R/A; db 16:30 BP 115 / 54; Pulse 88; Resp 14; Pulse Ox 100% on R/A; db 17:30 BP 119 / 78; Pulse 80; Resp 18; Pulse Ox 100% on R/A; db 12:56 Body Mass Index 30.79 (83.91 kg, 165.1 cm) cm10 12:56 Pain Scale: Adult cm10 Vitals: 16:30 Cardiac Rhythm Assessment Regular Sinus rhythm. db NIH Stroke Scale Scores: 13:15 NIHSS Score: 0 db ED Course: 12:41 Patient arrived in ED. im 12:48 Janes Beal MD is Attending Physician. sp3 12:[address] WITH RN. db 12:55 Patient has correct armband on for positive identification. Placed in gown. Bed in low db position. Call light in reach. Side rails up X2. Provided Education on: LABS, PLAN OF CARE AND PENDING RESULTS. Client placed on continuous cardiac and pulse oximetry monitoring. NIBP monitoring applied. color television console monitor on. Pulse ox on. NIBP on. Warm blanket given. Pillow given. 12:58 Triage completed. cm10 12:59 Arm band placed on Patient placed in an exam room, on a stretcher. cm10 13:02 Initial lab(s) drawn, by me, sent to lab. Inserted saline lock: 22 gauge in left db antecubital area, using aseptic technique. Blood collected. Flushed with 10 mL NS. 13:10 CT Neck Angio In Process Unspecified. EDMS 13:10 CT Stroke Brain w/o Contrast In Process Unspecified. EDMS 13:10 Head angio In Process Unspecified. EDMS 13:19 EKG done, by ED staff. db 13:46 Hilaria Shore, TITO is Primary Nurse. db 13:59 Bj Davenport MD is Hospitalizing Provider. sp3 14:12 Stroke CXR 1 View In Process Unspecified. EDMS 14:21 1421 CM met with patient at the bedside in the ED exam room. Patient identified by name ane and . Demographic sheet confirmed. Patient states her lives with her in a singles story home. Patient reports that prior to admission, she performs ADLs independently and without physical limitations, using only a cane on occasion when experiencing "gout " symptoms. No HH, home oxygen, DME and no MPOA in place at this time. Her preferred plan is to return home upon discharge and states her daughter Shanice will transport her home. CM team will continue to follow and coordinate care. 17:55 No provider procedures requiring assistance completed. Patient admitted, IV remains in db place. Administered Medications: 14:24 Drug: Aspirin PO 325 mg PO once Route: PO; db 15:00 Follow up: Response: No adverse reaction db Medication: 13:51 VIS not applicable for this client. db Point of Care Testing: Blood Glucose: 13:08 Blood Glucose: 92 mg/dL; db Ranges: Outcome: 14:00 Decision to Hospitalize by Provider. sp3 17:55 Admitted to ER Hold. [facility]. db 17:55 Condition: stable 17:55 Instructed on the need for admit, 18:04 Patient left the ED. db NIH Stroke Scale - NIH Stroke Score Date: 10/21/2023 Time: 13:15 Total Score = 0 10. Dysarthria (speech clarity - read or repeat words) - 0(Normal) 11. Extinction and Inattention (visual/tactile/auditory/spatial/personal) - 0(No abnormality) 1a. Level of Consciousness (LOC) - 0(Alert) 1b. Level of Consciousness (LOC) (Month \\T\\ Age) - 0(Both) 1c. LOC Commands (Open \\T\\ Closes Eyes/Nuclear Engineering Technician) - 0(Both) 2. Best Gaze (Lateral Gaze Paresis) - 0(Normal) 3. Visual Field Loss - 0(No visual loss) 4. Facial Palsy - 0(Normal) 5a. Left Arm: Motor (10-second hold) - 0(No drift) 5b. Right Arm: Motor (10-second hold) - 0(No drift) 6a. Left Leg: Motor (5-second hold - always test supine) - 0(No drift) 6b. Right Leg: Motor (5-second hold - always test supine) - 0(No drift) 7. Limb Ataxia (finger/nose \\T\\ heel/kelly - test with eyes open) - 0(Absent) 8. Sensory Loss (pinprick arms/legs/face) - 0(Normal) 9. Best Language: Aphasia (description/naming/reading) - 0(No aphasia) Initials: db Signatures: Dispatcher [employer] EDMalick Vázquez RN RN bp Janes Beal MD MD sp3 Hilaria Shore RN RN db Venessa Voss Clarissa, RN RN cm10 Lillie Jackson RN RN ane
[2023-10-21] MEDS ORDERED: ASPIRIN 325 MG TAB ONE (14:20)
--- NOTE | 2023-10-21 14:33 | RAD REPORT ---
EXAM DESCRIPTION: Jose D Single View10/21/2023 2:10 pm CLINICAL HISTORY: Dizziness COMPARISON: 2022 FINDINGS: The lungs appear clear of acute infiltrate. The heart is normal size IMPRESSION: No acute abnormalities displayed
[2023-10-21 14:34] LABS: Blood Morphology Comment NOT SEEN (NOT SEEN); Differential Total Cells Count 100; Eosinophils 1 % (0-3); Lymphocytes 13 % (15-42); Monocytes 7 % (0-10); Platelet Estimate DECR; Segmented Neutrophils 79 % (40-80)
[2023-10-21] MEDS: NA CHLORIDE 0.9% 1,000 ML IV SCH ×2 (18:12→19:00)
[2023-10-21 18:41] VITALS: O2SAT 97
--- NOTE | 2023-10-21 20:18 | RAD REPORT ---
EXAM DESCRIPTION: USCarotid Artery Bilateral10/21/2023 7:54 pm CLINICAL HISTORY: TIA COMPARISON: October 21, 2023 CTA neck FINDINGS: The velocity of the right internal carotid artery equals 110 centimeters/seconds. The righ t ICA/CCA ratio normal The velocity of the left internal carotid artery equals 100 cm/sec. The left ICA/CCA ratio normal Mild plaque is present within the carotid arteries. The vertebral arteries demonstrate antegrade flow IMPRESSION: No significant vascular abnormality displayed NASCET criteria used. Mild 0-49% stenosis Moderate 50-69% stenosis Severe 70-99% stenosis
--- NOTE | 2023-10-21 23:09 | HP ---
Date of Admission: 10/21/2023 Chief Complaint: Shortness of breath and trouble speaking. History Of Present Illness: This is an 83-year-old pleasant female, who was brought into my office t ness by her daughter and reported that this morning, the patient was talking to her daughter on the p noreen and all of a sudden she could not breathe well or speak and after a while, she was able to talk and her daughter arrived at her house and by the time she was back to her normal self. She denies an y chest pain. She vomited couple of times after that and was feeling weak. After I evaluated her at office, it was recommended for her to come to emergency room with my concerns about TIA for further evaluation and management, and after she arrived in the emergency room, she was evaluated. I did marii duron emergency room physician before she arrived to emergency room and explained all the details and sandie purdy communicated with the emergency room after all the evaluation completed and the patient was admitte d to the hospital. Allergies: TO ROSUVASTATIN CAUSING ABNORMAL LIVER FUNCTION TEST. Medications: Amlodipine 10 mg daily at bedtime, aspirin 81 mg daily, chlorthalidone 25 mg daily, vit archer D3 5000 units daily, colchicine 0.6 mg b.i.d. p.r.n. for gout, famotidine 40 mg daily at bedtime , hydralazine 50 mg 2 times a day, Creon as prescribed by boiler house supervisor, losartan 100 mg daily, sertraline 50 mg daily, omeprazole 40 mg daily, and she was given cephalexin and Bactrim DS from [facility] room 2 days ago for cellulitis of left leg and colchicine was given at that time for gout. Review of Systems: FOUNDER / CEO: As mentioned above. Musculoskeletal: Right foot pain. All other systems reviewed and negative. Past Medical History: Significant for COVID-19 infection in February of 2020, hypertension, mixed hyp erlipidemia, paroxysmal atrial fibrillation, gastroesophageal reflux disease, pancreatic cyst, glomer ulonephritis diagnosed at age 32 years and had a kidney biopsy as a part of workup for hematuria and this has resulted in chronic kidney disease. Past medical history also significant for anemia, throm bocytopenia, and depression. 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 Family History: Parents , details unknown. Sister , had dementia. Social History: Negative for smoking. Use of alcohol, glass of wine daily. Physical Examination: Vital Signs: Her blood pressure at office was 108/69, pulse 93, temperature 98, respiratory rate 16. Weight 184.8 pounds, height 65 inches. General: Awake, alert, oriented, not in distress. HEENT: Head atraumatic, normocephalic. Conjunctivae nonerythematous. Sclerae white. Mouth, no thr ush or edema noted. Ears/Nose, no mass, lesion, discharge noted. Neck: Supple. No JVD, lymph nodes, bruit, thyromegaly noted. Lungs: Bilateral good equal air entry. Clear to auscultation. No rhonchi. No rales. Heart: Normal heart sounds, no murmur or gallop. Abdomen: Soft, bowel sounds normal. No guarding, rigidity, tenderness, mass, hepatosplenomegaly, dis tention, or bruit noted. Extremities: No leg edema. No calf tenderness. Skin: No rash, ulcer, cellulitis. Lymphatics: No lymph node enlargement in neck, supraclavicular, infraclavicular region. Neuro: No focal neurological deficit. Chest: Unremarkable. External Genitalia: Deferred. Rectal: Deferred. Laboratory Data: WBC 5.8, hemoglobin 11.6, platelets 138. Sodium 137, potassium 3.7, chloride 106, bicarb 23, BUN 38, creatinine 1.81, glucose 101. Liver function tests, AST 123, ALT 127. Troponin 2 9.2. Chest x-ray, no acute cardiopulmonary changes. CAT scan of the head was negative for any acute intracranial changes. CT angiogram of neck shows about 35% to 40% stenotic lesion in the carotid ar teries, vertebral artery appears unremarkable. No evidence of dissection or high-grade stenosis. CT . Impression: 1.TIA. 2.Paroxysmal atrial fibrillation. 3.Carotid artery stenosis, bilateral. 4.Hypertension. 5.Mixed hyperlipidemia. 6.Abnormal liver function tests. 7.Gastroesophageal reflux disease. 8.Chronic kidney disease stage IIIB. 9.Anemia, unspecified. 10.Thrombocytopenia, unspecified. 11.Depression. Plan: Admit the patient to hospital for further evaluation and management of this problem. The newton ent is appropriate for observation. We will consult neurologist. The patient has been on aspirin 81 mg daily and we will change it to Plavix 75 mg daily per order. We will get echo with Doppler and c arotid Doppler tomorrow for further workup. Consult neurologist, Dr. Jaeger. For hyperlipidemia, she is not able to tolerate statin therapy and I will review her prior office record to see if we hav e tried other statin therapy for her or not and depending on that, we will make a decision on how to handle her hyperlipidemia. For hypertension, we will continue her antihypertensive medications per o rder. Monitor blood pressure and adjust medication as it becomes necessary. For her depression, we will continue her sertraline per order. For her paroxysmal atrial fibrillation, no need for any furt her intervention as the patient had Watchman's procedure about 2 years ago. Considering the patient' s renal function is little more abnormal compared to her baseline and she has received IV dye today, we will hydrate her with IV fluid and repeat blood work tomorrow morning along with lipid profile and I will see her tomorrow morning for followup. SUSANA/MODL Voice ID: [id number]
[2023-10-22 00:11] VITALS: BMI 30.7
[2023-10-22] MEDS ORDERED: SMZ./TMP. 800/160 MG TABLET PO SCH (08:00)
[2023-10-22] MEDS: BACTRIM DS PO SCH (08:08)
[2023-10-22] MEDS: SERTRALINE HCL 50 MG TAB PO SCH (08:09)
[2023-10-22] MEDS: CHLORTHALIDONE 25 MG TAB PO SCH (08:09)
[2023-10-22] MEDS: LOSARTAN POTASSIUM 50 MG TABLET PO SCH (08:09)
[2023-10-22] MEDS: CLOPIDOGREL 75 MG TABLET PO SCH (08:09)
[2023-10-22] MEDS: CEPHALEXIN 500 MG PO SCH (08:09)
[2023-10-22] MEDS: METOPROLOL TAR 25 MG TAB PO SCH (08:09)
[2023-10-22] MEDS: ONDANSETRON 4 MG/2 ML VIAL IV PRN (09:00)
[2023-10-22 09:07] LABS: ALT/SGPT 89 U/L (13-56); AST/SGOT 67 U/L (15-37); Albumin 2.8 g/dL (3.4-5.0); Albumin/Globulin Ratio 0.9 (1.1-1.8); Alkaline Phosphatase 113 U/L (45-117); Anion Gap 11.7 mEq/L (5.0-15.0); BUN Blood Urea Nitrogen 32 mg/dL (7-18); Bicarbonate 23 mEq/L (21-32); Bilirubin Total 0.3 mg/dL (0.2-1.0); Creatine Phosphokinase 90 U/L (26-192); Globulin 3.2 g/dL (2.3-3.5); Glomerular Filtration Rate 37 ml/min (=/>90); Glucose Level 86 mg/dL (74-106); HDL Cholesterol 41 mg/dL (40-60); LDL Cholesterol,Calc NonReport 109; LDL, Direct 110 mg/dL (100-129); Potassium 4.7 mEq/L (3.5-5.1); Sodium Level 139 mEq/L (136-145)
[2023-10-22] MEDS ORDERED: CEPHALEXIN 500 MG CAP PO SCH (12:00)
--- NOTE | 2023-10-22 12:29 | P.CNS ---
Date of Consult: 10/22/23 Chief Complaint: possible TIA, AF, Watchman History of Present Illness: Patient with PMH of atrial fibrillation s/p recent failed JOURDAN DCCV, also s/p watchman, HTN, presented with suspected TIA, report that saturday she was talking to her daughter on the phone when she felt SOB and hard to get the words out, denies any face numbness, no focal neurological deficit and she is back at her baseline now. Allergies No Known Allergies Allergy (Verified 02/14/23 14:41) Home medications list reviewed: Yes Home Medications: Amlodipine Besylate 10 mg PO BEDTIME 10/21/23 Aspirin 2 tab PO DAILY 10/21/23 Cephalexin [Keflex] 500 mg PO Q6HR 10/21/23 Chlorthalidone [Hygroton 25mg Tab] 25 mg PO DAILY 10/21/23 Codeine/APAP [Tylenol #3*] 2 tab PO Q6HP PRN 10/21/23 Colchicine [Colcrys] 2 tab PO DAILY 10/21/23 Ezetimibe [Zetia*] 1 tab PO BEDTIME 10/21/23 Hydralazine [Apresoline] 50 mg PO BID 10/21/23 Losartan Potassium 100 mg PO DAILY 10/21/23 Metoprolol Tartrate [Lopressor] 25 mg PO BID 10/21/23 Sertraline HCl 50 mg PO DAILY 10/21/23 Sulfamethoxazole/Trimethoprim [Sulfamethoxazole-Tmp Ds Tablet] 1 tab PO Q12H 10/21/23 - Past Medical/Surgical History Diabetic: No -: HTN -: ULCERS -: DEPRESSION -: HYSTERECTOMY -: CRISTINA -: BILATERAL KNEE SX - Social History Alcohol use: Yes CD- Drugs: No Caffeine use: Yes Place of Residence: Home Review of Systems 10-point ROS is otherwise unremarkable Physical Examination Temp Pulse Resp BP Pulse Ox 98.5 F 113 H 16 123/65 95 10/22/23 08:00 10/22/23 08:09 10/22/23 08:00 10/22/23 08:09 10/22/23 08:00 General: Alert, In no apparent distress HEENT: Atraumatic, PERRLA, Mucous membr. moist/pink, EOMI, Sclerae nonicteric Neck: Supple, 2+ carotid pulse no bruit, No LAD, Without JVD or thyroid abnormality Respiratory: Clear to auscultation bilaterally, Normal air movement Cardiovascular: Irregular heart rate/rhythm Gastrointestinal: Normal bowel sounds, No tenderness Musculoskeletal: No tenderness Integumentary: No rashes Neurological: Normal gait, Normal speech, Normal tone, Normal affect Lymphatics: No axilla or inguinal lymphadenopathy Laboratory Data (last 24 hrs) 10/21/23 10/21/23 10/21/23 13:07 13:07 13:07 WBC 5.80 Hgb 11.6 L Hct 35.3 L Plt Count 138 L PT 12.0 INR 1.07 APTT 24.9 Sodium 137 Potassium 3.7 BUN 38 H Creatinine 1.81 H Glucose 101 Magnesium 1.6 Total Bilirubin 0.3 AST 123 H ALT 127 H Alkaline Phosphatase 127 H - Problems (1) HTN (hypertension) Current Visit: Yes Status: Acute Plan: recommend stopping Norvasc and increasing lopressor to 50 mg po BID continue chlolthalidone (2) Carotid artery disease Current Visit: Yes Status: Acute Plan: Mild to moderate in nature continue Plavix continue lipitor outpatient follow up for annual carotid duplex. (3) Atrial fibrillation with rapid ventricular response Onset Date: 05/12/15 Current Visit: No Status: Acute Plan: patient had failed JOURDAN DCCV back in February. also got watchman 2 years ago. increase lopressor to 50 mg po BID stop norvasc continue plavix.
[2023-10-22] MEDS ORDERED: CEPHALEXIN 500 MG PO SCH (13:00)
[2023-10-22 16:38] VITALS: BP 153/75; TEMP 97.7
--- NOTE | 2023-10-22 16:56 | EKG ---
Test Date: 2023-10-21 Test Time: 13:18:49 General Dentist/Owner: CLOTILDE MEASUREMENT RESULTS: Intervals: Rate: 102 ND: QRSD: 84 QT: 370 QTc: 482 [place]: P: ND: QRS: -22 T: 70 INTERPRETIVE STATEMENTS: Atrial fibrillation with rapid ventricular response Nonspecific ST and T wave abnormality Abnormal ECG Compared to ECG 02/19/2023 12:31:43 ST (T wave) deviation now present Sinus bradycardia no longer present Atrial premature complex(es) no longer present Myocardial infarct finding no longer present Electronically Signed On 10-22-23 16:53:12 CDT by Jose Ramon Olivier
[2023-10-22] MEDS ORDERED: ATORVASTATIN 40 MG TAB PO SCH (21:00)
[2023-10-22] MEDS ORDERED: AMLODIPINE 10 MG TAB PO SCH (21:00)
--- NOTE | 2023-10-22 21:45 | CON ---
Reason For Consultation: Consultation called because of possible TIA. History Of Present Illness: Ms. Kapoor is an 83-year-old patient with hypertension, depression, dyslip idemia, who was speaking with her daughter on the morning of 10/21/2023 when she could not catch her breath and did not get words out. Her daughter was on the phone with her, and the daughter hung up a nd came over to her mother. Apparently when she got there, the mother was back to normal. It was no reta she vomited and was feeling weak. She was seen by Dr. Davenport in his office, and he recommended fur ther evaluation in the emergency room. At the emergency room, her blood work showed essentially a no rmal complete blood count with differential on 10/19/2023; coagulation panel was normal; chemistries showed slightly elevated creatinine of 1.83 with BUN of 38 consistent with dehydration. She had elev ated liver enzymes. AST of 123, ALT 127, alkaline phosphatase 127. C-reactive protein elevated at 3 3.6. She did have a CT scan of her head, which showed no acute ischemic or hemorrhagic findings. Th e study showed low-density area within the periventricular deep white matter likely secondary to the chronic small vessel ischemic disease. An MRI was recommended and is likely pending. CT angiogram o f her neck and CT angiogram of her head showed [id number] calcified plaque in the right proxima l carotid, resulting in about 30% to 45% stenosis. There was mild plaque within the remainder of com mon internal and external carotid arteries and just mild plaque there; and in the vertebral arteries, there were no significant plaque identified. She was treated with Plavix 75 mg daily, Lipitor 40 mg at bedtime. She has Norvasc, Cozaar, and metoprolol. She did receive IV fluids for hydration. Since the hospitalization she says no additional episodes h ave occurred, and she is able to communicate effectively. She denies any weakness in the face, arm, or leg. No loss of sensation, balance, coordination. Past Medical History: As noted. Allergies: NO KNOWN DRUG ALLERGIES. Medications: She is receiving IV fluids at 75 cc an hour, Zoloft 50 mg daily, Zofran 4 mg every 6 ho urs as needed, Lopressor 25 mg twice daily, Cozaar 100 mg daily, Plavix 75 mg daily, Hygroton 25 mg d aily, Lipitor 40 mg at bedtime, and Norvasc 10 mg at bedtime. Family History: Noncontributory. Social History: Very rare alcohol consumption, a glass of wine daily socially. No tobacco use. The patient lives independently. Her daughter is very involved in her care. Review of Systems: Some nausea and vomiting earlier and difficulty getting thoughts and words together, but that has res olved. Otherwise, no active fevers, chills, nausea, vomiting, myalgias, arthralgias, rash. Surgical Procedures: She had a Watchman procedure for atrial fibrillation. 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 Physical Examination: Vital Signs: Blood pressure 123 up to 153 over 65 to 75, pulse 79 up to 113, respiratory rate with a ctivity 16 to 20, temperature 97.3 up to 98.5 T-max. Oxygen saturation 97% room air. General: Ms. Kapoor is resting comfortably in bed. Daughter is at the bedside. HEENT: She appears normocephalic, atraumatic. Sclerae anicteric. Oropharynx is pink and moist. Neck: Supple. Chest: Clear. Heart: Regular. Extremities: Show no significant edema, cyanosis, or clubbing. Neurological: She has no focal neurologic deficits in the cranial nerve, motor/sensory exam, coordin ation. She ambulated with the physical therapist and was found to have poor standing balance. She w as minimum assistance for ambulation without an assistive device. It is recommended that the patient have outpatient therapy. Transportation is available to improve her balance, coordination, and gait . Assessment: Ms. Kapoor is an 83-year-old patient with possible transient ischemic attack. She has res olution of an aphasic component of the difficulty getting her words out and some problems with breath ing. The length of time is unclear, but it is short enough for the patient to develop her symptoms w charlye speaking on the phone and, the daughter who lives close by, when she arrived it had resolved. T here are risk factors to include hypertension, dyslipidemia. She has elevated liver enzymes and dehy dration. Plan: Continue with a list of medications including the Plavix; Lipitor; management of hypertension, which she is on multiple antihypertensive medications. She was told the importance of hydration, ex ercise, diet modification to decrease stroke risk. At this point, again she may be discharged home a nd follow up with Dr. Jaeger within a month. BRENDA/IQRA Voice ID: [id number] Report ID: [id number]
== END 2023-10-22 18:36 | disposition home or self-care (01) ==
LOC: ER 12:39 → ERHOLD 16:14 → 4TH 17:00
PROVIDERS: ADMIT Internal Medicine; ATTEND Internal Medicine
DX: R06.02 Shortness of breath (principal); I48.0 Paroxysmal atrial fibrillation; R47.01 Aphasia; I10 Essential (primary) hypertension; E78.2 Mixed hyperlipidemia; I25.10 Atherosclerotic heart disease of native coronary artery without angina pectoris; R94.5 Abnormal results of liver function studies; N18.32 Chronic kidney disease, stage 3b; K21.9 Gastro-esophageal reflux disease without esophagitis; K86.2 Cyst of pancreas; N05.9 Unspecified nephritic syndrome with unspecified morphologic changes; F32.A Depression, unspecified; D69.6 Thrombocytopenia, unspecified; D64.9 Anemia, unspecified; Z86.16 Personal history of COVID-19; Z85.828 Personal history of other malignant neoplasm of skin; Z90.49 Acquired absence of other specified parts of digestive tract; Z90.710 Acquired absence of both cervix and uterus; Z96.653 Presence of artificial knee joint, bilateral; Z71.3 Dietary counseling and surveillance; Z88.8 Allergy status to other drugs, medicaments and biological substances
CPT/HCPCS: 93005; 85025; 80048; 36415; 83721; 83735; 82550; 85610; 80061; 82947; 80076; 85730; 84484 ×3; 80053; 70496; 70498; 70450; 71045; 93880; 97116; 97162; 97530; Q9967; J2405 ×2; J7030 ×2; 99285; G0378

== ENCOUNTER 2023-12-13 10:54 | Observation (INO) | payer OTHER ==
--- OUTSIDE RECORDS SUMMARY | 2023-12-13 10:57 | XMS REPORT | Clinical Summary ---
Author Name Unknown Organization [facility] Address [address] [place] [address] Care Team Providers Care General Magistrate Name Role Phone Bj Davenport MD Unavailable [phone] Israel Haque MD Primary Care Provider [phone] Allergies No known active allergies Medications Medication [...] Comments Pneumococcal Vaccine: 65+ Years (1 of - PCV) 007 COVID-19 Vaccine ( - 2023- season) 2023 Influenza Vaccine (#1) 2023 Care Teams General Magistrate Relationship Specialty Start Date End Date Bj Davenport MD [address] [place] [address] [phone] [email or web address] PCP - External Referring Internal Medicine 07/14/20 Israel Haque MD [address] [place] [id number] [email or web address] [email or web address] - General Surgical Oncology 08/10/20
--- NOTE | 2023-12-13 12:43 | RAD REPORT ---
EXAMINATION: ONE VIEW CHEST XR CLINICAL INDICATION: Female, 83 years old.DYSPNEA TECHNIQUE: 1 View, AP supine, X-ray of the chest was performed. [id number]. COMPARISON: 10/21/2023 FINDINGS: Lungs and pleura: Clear lungs. No effusion. Heart and mediastinum: Normal heart size. Unremarkable mediastinal contours. Osseous structures: No acute abnormality. Tubes/lines: None Other: None. IMPRESSION: No acute intrathoracic abnormality.
--- NOTE | 2023-12-13 12:43 | RAD REPORT ---
EXAM: Hand Left 2 View HISTORY: PAIN COMPARISON: None FINDINGS: Bones: No acute fracture identified. Alignment:No significant malalignment. Degenerative changes:Moderate degenerative changes are present the base of the thumb. Mild interphala ngeal joint space narrowing. Other: n/a IMPRESSION: No evidence of acute osseous abnormality involving the imaged hand.
--- NOTE | 2023-12-13 12:44 | RAD REPORT ---
EXAM: CT Head Brain Wo Cont HISTORY: APHASIA COMPARISON: 10/21/2023 TECHNIQUE: Multiple contiguous axial images were obtained for a CT of the brain without contrast. Sag ittal and coronal reformats were performed. One or more of the following dose reduction techniques were used: Automated exposure control, adjus tment of the mA and kV according to patient size, and iterative reconstruction. Unless otherwise specified, incidental findings do not require dedicated imaging follow-up. FINDINGS: No evidence of hydrocephalus, intracranial hemorrhage, or extra-axial fluid collection. The brain is normal in morphology. The calvarium is intact. The visualized paranasal sinuses and mastoid air cells are essentially clear . IMPRESSION: No evidence of acute intracranial abnormality. THIS REPORT CONTAINS FINDINGS THAT MAY BE CRITICAL TO PATIENT CARE. The findings were verbally commun icated via telephone to Jamaal Somers MD on 12/13/2023 12:42 PM.
--- NOTE | 2023-12-13 12:46 | RAD REPORT ---
EXAMINATION: CTA HEAD CLINICAL INDICATION: Female, 83 years old. Possible stroke TECHNIQUE: Axial CT images were obtained through the head after intravenous contrast utilizing angiog raphic protocol with 3D post-processing (maximum intensity projection images, volume rendered images and/or shaded surface rendered images). One or more of the following dose reduction technique s were used: Automated exposure control, adjustment of the mA and/or kV according to patient size, and/or iterative reconstruction. Unless otherwise specified, incidental findings do not require dedic ated imaging follow-up. COMPARISON: 10/21/2023. FINDINGS: ICA: The petrous, cavernous, and supraclinoid segments of the bilateral internal carotid arteries are normal. SUSANA: Anterior cerebral arteries are normal bilaterally. The anterior communicating artery is patent. MCA: Middle cerebral arteries are normal bilaterally. INSIDE SALES CONSULTANT: Posterior cerebral arteries are normal bilaterally. Vertebrobasilar: The vertebral arteries are patent. The basilar artery is normal in appearance. 3D images confirm these findings. IMPRESSION: Normal head CTA.
--- NOTE | 2023-12-13 12:49 | RAD REPORT ---
EXAMINATION: CT Neck Angio CLINICAL INDICATION: Female, 83 years old. [facility] NUMBN[facility] Bed Name: 3 TECHNIQUE: Axial CT images were obtained from the aortic arch to the skull base after intravenous con trast utilizing angiographic protocol. Multiplanar reformats, as well as 3D post-processing (maximum intensity projection images, volume rendered images and/or shaded surface rendered images) w ere generated and reviewed. One or more of the following dose reduction techniques were used: Automated exposure control, adjustment of the mA and/or kV according to patient size, and/or iterativ e reconstruction. Unless otherwise specified, incidental findings do not require dedicated imaging follow-up. COMPARISON: 10/21/2023 FINDINGS: AORTA: The imaged aortic arch is normal. Normal three-vessel configuration of the arch. CCA: No artifact The common carotid arteries are patent and normal in caliber. ICA/ECA: Bilateral internal and external carotid arteries are patent. There is no significant interna l carotid artery stenosis. VERTEBRAL: The cervical vertebral arteries are patent to the skull base. Vertebral arteries are codom inant. SOFT TISSUE: No significant neck soft tissue abnormalities. The visualized lung apices are clear. 3D images confirm these findings. IMPRESSION: No significant flow abnormality of the neck vessels is identified. NASCET criteria used to quantify ICA stenosis, with the following grading scheme: Mild 0-49% stenosis Moderate 50-69% stenosis Severe 70-99% stenosis Reference: [place] Symptomatic Carotid Endarterectomy Trial Collaborators; Yobani LEON, Carmen BORGES, Yuki RB, et al. Beneficial effect of carotid endarterectomy in symptomatic patients with high-grade carotid stenosis. N Engl J Med. 1990Sep 25;325(7):445-53.
[2023-12-13 12:56] LABS: Absolute Basophils 0.1 K/uL (0-0.5); Absolute Eosinophils 0.1 K/uL (0-0.5); Absolute Lymphocytes (CBC) 3.1 K/uL (0.7-4.9); Absolute Monocytes 0.7 K/uL (0.1-1.3); Basophils % 0.5 % (0-1.3); Eosinophils % 1.2 % (0-4.4); Hematocrit 39.2 % (36.0-45.0); Hemoglobin 12.9 g/dL (12.0-15.0); Lymphocytes % 28.2 % (15.3-44.8); MCH 31.7 pg (27.0-35.0); MCV 96.1 fL (80-100); Monocytes % 6.6 % (3.3-12.3); Neutrophils % 63.5 % (41.7-73.7); Platelets 173 thou/uL (152-406); RBC Red Blood Cell Count 4.08 M/uL (3.86-4.86); Red Cell Distribution Width 14.5 % (12.1-15.2)
[2023-12-13 12:58] LABS: PT Prothrombin Time 12.3 SECONDS (9.4-12.5); Protime INR 1.1
[2023-12-13] MEDS ORDERED: HYDROCODONE/APAP 5/325 MG TAB ONE (13:12)
[2023-12-13 13:14] LABS: Anion Gap 8.1 mEq/L (5.0-15.0); Magnesium 1.7 mg/dL (1.6-2.4); Potassium 4.1 mEq/L (3.5-5.1); Troponin High Sensitivity 23.6 pg/mL (<58.9)
[2023-12-13 14:14] LABS: Specific Gravity > 1.030 (1.005-1.030); Sqamous Epithelial <5 /HPF (None Seen); Urine Bacteria None Seen /HPF (<20); Urine Bilirubin NEGATIVE (Negative); Urine Blood 1+ (Negative); Urine Clarity Clear (Clear); Urine Color Light-Yellow (Yellow); Urine Culture Reflex Order NOT NEEDED; Urine Glucose NEGATIVE (Negative); Urine Ketones NEGATIVE (Negative); Urine Micro Reflex YN NO BILL MICROSCOPIC; Urine Mucus Slight /HPF (None Seen); Urine Nitrite NEGATIVE (Negative); Urine Protein 1+ (Negative); Urine Urobilinogen Normal (Normal); Urine WBC <5 /HPF (<5); Urine Yeast (Budding) Trace /HPF (None Seen); Urine pH 5.5 (5.0-7.0)
[2023-12-13] MEDS: levETIRAcetam 1,500 MG in NA CHLORIDE 0.9% 100 ML IV ONE (15:00)
--- NOTE | 2023-12-13 15:32 | ER ---
Nurse's Notes [facility] Will Name: Grace Kapoor Age: 83 yrs Sex: Female : 1940 Arrival Date: 12/13/2023 Time: 10:54 Bed 3 Private MD: Diagnosis: Transient cerebral ischemic attack, unspecified;Paroxysmal atrial fibrillation;Gout, unspecified;Essential (primary) hypertension Presentation: 12/12 11:23 Chief complaint: Patient states: hx of gout, reports swelling and pain to right ankle, aa5 left knee, and left hand that began 3-4 days ago. Report recently had skin cancer spots removed from left arm and right arm by maintenance services dispatcher. Coronavirus screen: At this time, the client does not indicate any symptoms associated with coronavirus-19. Ebola Screen: Patient denies travel to an Ebola-affected area in the 21 days before illness onset. Initial Sepsis Screen: Does the patient meet any 2 criteria? No. Patient's initial sepsis screen is negative. Does the patient have a suspected source of infection? No. Patient's initial sepsis screen is negative. Risk Assessment: Do you want to hurt yourself or someone else? Patient reports no desire to harm self or others. Onset of symptoms was November 2023. 11:23 Acuity: TATA 3 aa5 11:23 Method Of Arrival: Ambulatory aa5 Historical: - Allergies: 11:25 No Known Allergies; aa5 - PMHx: 11:23 a fib; Depression; Hypertension; kidney disease; Ulcers; aa5 11:25 Gout; aa5 - PSHx: 11:23 watchman; aa5 - Infectious Disease History:: Denies. - Social history:: Smoking status: Patient denies any tobacco usage or history of. Screenin:15 Abuse screen: Denies threats or abuse. Denies injuries from another. Nutritional ss screening: No deficits noted. Tuberculosis screening: Never had TB. Assessment: 12:08 Reassessment: Code stroke called. ss 12:15 Reassessment: Code stroke cancelled at this time per Dr. Sanchez. Dr. Sanchez believes ss patient may have had a syncopal episode. 12:20 Reassessment: NIHSS 0 at this time. Neuro: Level of Consciousness is awake, alert, ss obeys commands, Oriented to person, place, time, situation, Certified Ophthalmic Technologist are equal bilaterally Speech is normal, Facial symmetry appears normal, Pupils are PERRLA. GI: No signs and/or symptoms were reported involving the gastrointestinal system. 13:15 Reassessment: Patient appears in no apparent distress at this time. Patient and/or ss family updated on plan of care and expected duration. Pain level reassessed. Patient is alert, oriented x 3, equal unlabored respirations, skin warm/dry/pink. two family members remain at bedside. 14:15 Reassessment: assisted pt to restroom VIA wheelchair. Pt denies dizziness at this time. ss Neuro: Level of Consciousness is awake, alert, obeys commands, Oriented to person, place, time, situation. Respiratory: Airway is patent Respiratory effort is even, unlabored, Respiratory pattern is regular, symmetrical. Derm: Skin is dry. 14:43 Reassessment: Patient appears in no apparent distress at this time. Patient and/or ss family updated on plan of care and expected duration. Pain level reassessed. awaiting disposition. 16:21 Reassessment: Pt still in MRI at this time. ss 16:41 Reassessment: report faxed. Spoke with TITO Nation. Vital Signs: 11:23 BP 145 / 94; Pulse 86; Resp 18 S; Temp 97.8(TE); Pulse Ox 96% on R/A; aa5 13:06 BP 151 / 74; Pulse 84; Resp 16; Pulse Ox 100% on R/A; ss 14:32 Pulse 85; Resp 16; Temp 97.8(TE); Pulse Ox 99% on R/A; Pain 0/10; ss 15:15 BP 153 / 82; Pulse 73; Resp 16; Pulse Ox 97% on R/A; ss 14:32 Pain Scale: Adult ss ED Course: 10:58 Patient arrived in ED. im 11:12 Rachael Sanchez MD is Attending Physician. gb1 11:23 Arm band placed on. aa5 11:24 Triage completed. aa5 12:13 Initial lab(s) drawn, by me. Inserted saline lock: 18 gauge in right antecubital area, hb using aseptic technique. Blood collected. Flushed with 10 mL NS. 12:30 CT Head Brain wo Cont In Process Unspecified. EDMS 12:30 CT Neck Angio In Process Unspecified. EDMS 12:31 Head angio In Process Unspecified. EDMS 12:39 Hand Left 2 View XRAY In Process Unspecified. EDMS 12:39 XRAY Chest (1 view) In Process Unspecified. EDMS 13:06 Cristina Herzog, RN is Primary Nurse. ss 14:41 Neurologist called and connected Dr. Jaeger with Dr. Sanchez for patient transfer eb consultation. 15:15 Patient has correct armband on for positive identification. ss 15:31 Newton Davenport MD is Hospitalizing Provider. gb1 16:47 No provider procedures requiring assistance completed. Patient admitted, IV remains in ss place. Administered Medications: 13:15 Drug: HYDROcodone-acetaminophen PO 5 mg-325 mg 1 tabs PO once Route: PO; ss 14:30 Follow up: Response: No adverse reaction ss 15:20 Drug: Keppra IV 1500 mg IV at bolus once Route: IV; Rate: bolus; Site: right ss antecubital; 15:35 Follow up: IV Status: Completed infusion ss Medication: 15:15 VIS not applicable for this client. ss Outcome: 15:31 Decision to Hospitalize by Provider. gb1 16:47 Condition: good ss 16:47 Instructed on the need for admit, 17:20 Admitted to Tele accompanied by tech, family with patient, via wheelchair, room 207, ss 17:21 Patient left the ED. ss Signatures: Dispatcher [employer] EDMS Rohini Nunez, RN RN aa5 Cristina Herzog, TITO RN Brit Dozier RN ITTO Ebony Jarrett Venessa Voss Rachael Sanchez MD MD gb1 Corrections: (The following items were deleted from the chart) 11:26 11:23 Chief complaint: Patient states: hx of gout, reports swelling and pain to right aa5 ankle, left knee, and left hand that began 3-4 days ago. aa5
--- NOTE | 2023-12-13 15:32 | EDPHYS ---
Physician Documentation [facility] Name: Grace Kapoor Age: 83 yrs Sex: Female : 1940 Arrival Date: 12/13/2023 Time: 10:54 Bed 3 Private MD: ED Physician Rachael Sanchez HPI: 12/12 16:46 This 83 yrs old Female presents to ER via Ambulatory with complaints of Hand gb1 Swelling - left, knee swelling left, Feet Swelling - right. Historical: - Allergies: 11:25 No Known Allergies; aa5 - PMHx: 11:23 a fib; Depression; Hypertension; kidney disease; Ulcers; aa5 11:25 Gout; aa5 - PSHx: :23 watchman; aa5 - Infectious Disease History:: Denies. - Social history:: Smoking status: Patient denies any tobacco usage or history of. Exam: 16:46 Constitutional: This is a well developed, well nourished patient who is awake, alert, gb1 and in no acute distress. Head/Face: Normocephalic, atraumatic. Eyes: Pupils equal round and reactive to light, extra-ocular motions intact. Lids and lashes normal. Conjunctiva and sclera are non-icteric and not injected. Cornea within normal limits. Periorbital areas with no swelling, redness, or edema. ENT: Nares patent. No nasal discharge, no septal abnormalities noted. Tympanic membranes are normal and external auditory canals are clear. Oropharynx with no redness, swelling, or masses, exudates, or evidence of obstruction, uvula midline. Mucous membranes moist. Neck: Trachea midline, no thyromegaly or masses palpated, and no cervical lymphadenopathy. Supple, full range of motion without nuchal rigidity, or vertebral point tenderness. No Meningismus. Chest/axilla: Normal chest wall appearance and motion. Nontender with no deformity. No lesions are appreciated. Cardiovascular: Regular rate and rhythm with a normal S1 and S2. No gallops, murmurs, or rubs. Normal PMI, no JVD. No pulse deficits. Respiratory: Lungs have equal breath sounds bilaterally, clear to auscultation and percussion. No rales, rhonchi or wheezes noted. No increased work of breathing, no retractions or nasal flaring. Abdomen/GI: Soft, non-tender, with normal bowel sounds. No distension or tympany. No guarding or rebound. No evidence of tenderness throughout. Back: No spinal tenderness. No costovertebral tenderness. Full range of motion. Skin: Warm, dry with normal turgor. Normal color with no rashes, no lesions, and no evidence of cellulitis. MS/ Extremity: Pulses equal, no cyanosis. Neurovascular intact., there is some swelling in the left hand at 1/2nd phalange, ROM limited to pain and swelling. No induration or tracking of erythema. Vital Signs: 11:23 BP 145 / 94; Pulse 86; Resp 18 S; Temp 97.8(TE); Pulse Ox 96% on R/A; aa5 13:06 BP 151 / 74; Pulse 84; Resp 16; Pulse Ox 100% on R/A; ss 14:32 Pulse 85; Resp 16; Temp 97.8(TE); Pulse Ox 99% on R/A; Pain 0/10; ss 15:15 BP 153 / 82; Pulse 73; Resp 16; Pulse Ox 97% on R/A; ss 14:32 Pain Scale: Adult ss Procedures: 16:46 EKG shows atrial fibrillation.. gb1 MDM: 11:22 Medical Screening Exam initiated gb1 16:46 Differential diagnosis: contusion, tendonitis, gouty flare, doubt septic joint. gb1 16:46 ED course: 83 year old female with atrial fibrillation on plavix here with LT 1/2nd gb1 digit gouty flare, while waiting in the ED waiting room had an episode of altered mental status that appeared to be a seizure, onset [address] brain ruled out LVO, and patient is clinically back to baseline. Need neuro eval with MRI Brain, and I have discussed the case at length with Dr. Jaeger, who will see the patient. Consider TIA vs CVA with new onset seizure. Pt admitted by Dr. Davenport, who I have also discussed the patient with.. 16:51 Data reviewed: lab test result(s), cardiac enzymes, CBC, electrolytes, urinalysis, gb1 radiologic studies, CT scan. 12/12 12:19 Order name: Basic Metabolic Panel; Complete Time: 13:24 gb1 12/12 12:19 Order name: CBC with Diff; Complete Time: 13:07 gb1 12/12 12:19 Order name: Magnesium; Complete Time: 13:24 gb1 12/12 12:19 Order name: NT PRO-BNP; Complete Time: 13:24 gb1 12/12 12:19 Order name: PT-INR; Complete Time: 13:07 gb1 12/12 12:19 Order name: Troponin HS; Complete Time: 13:24 gb1 12/12 12:20 Order name: UAM; Complete Time: 14:42 gb1 12/12 12:21 Order name: Glucose, Ancillary Testing; Complete Time: 13:07 EDMS 12/12 14:03 Order name: CREATININE WHOLE BLOOD; Complete Time: 14:42 EDMS 12/12 16:06 Order name: Creatine Phosphokinase EDMS 12/12 16:06 Order name: Creatine Phosphokinase EDMS 12/12 16:06 Order name: Lipid Profile EDMS 12/12 16:06 Order name: Lipid Profile EDMS 12/12 16:06 Order name: Troponin High Sensitivity EDMS 12/12 16:06 Order name: Troponin High Sensitivity; Complete Time: 19:51 EDMS 12/12 16:06 Order name: Troponin High Sensitivity EDMS 12/12 16:06 Order name: Troponin High Sensitivity EDMS 12/12 11:33 Order name: Hand Left 2 View XRAY; Complete Time: 13:07 gb1 12/12 12:14 Order name: CT Head Brain wo Cont; Complete Time: 13:08 gb1 12/12 12:16 Order name: CT Neck Angio; Complete Time: 13:08 gb1 12/12 12:19 Order name: Head angio; Complete Time: 13:08 EDMS 12/12 12:19 Order name: XRAY Chest (1 view); Complete Time: 13:08 gb1 12/12 15:06 Order name: MRI - Brain W/Wo Cont gb1 12/12 16:06 Order name: Echo with Doppler EDMS 12/12 16:06 Order name: Carotid Artery Bilateral EDMS 12/12 16:32 Order name: MRI; Complete Time: 19:51 EDMS 12/12 12:19 Order name: EKG; Complete Time: 12:20 gb1 12/12 16:06 Order name: IRF Screen EDMS 12/12 12:19 Order name: Cardiac monitoring; Complete Time: 13:07 gb1 12/12 12:19 Order name: EKG - Nurse/Tech; Complete Time: 13:07 [facility] 12/12 12:19 Order name: IV Saline Lock; Complete Time: 13:07 1 12/12 12:19 Order name: Labs collected and sent; Complete Time: 13:07 1 12/12 12:19 Order name: O2 Per Protocol; Complete Time: 13:07 1 12/12 12:19 Order name: O2 Sat Monitoring; Complete Time: 13:07 [facility] Administered Medications: 13:15 Drug: HYDROcodone-acetaminophen PO 5 mg-325 mg 1 tabs PO once Route: PO; ss 14:30 Follow up: Response: No adverse reaction ss 15:20 Drug: Keppra IV 1500 mg IV at bolus once Route: IV; Rate: bolus; Site: right ss antecubital; 15:35 Follow up: IV Status: Completed infusion ss Disposition Summary: 12/13/23 15:31 Hospitalization Ordered Notes: Hospitalization Status: Inpatient Admission gb1 Provider: Newton Davenport Location: Telemetry/MedSurg (Inpatient) gb1 Condition: Stable gb1 Problem: new gb1 Symptoms: are unchanged gb1 Bed/Room Type: Standard [facility] Room Assignment: 207(12/13/23 16:20) eb Diagnosis - Transient cerebral ischemic attack, unspecified gb1 - Paroxysmal atrial fibrillation gb1 - Gout, unspecified gb1 - Essential (primary) hypertension gb1 Forms: - Medication Reconciliation Form gb1 - SBAR form gb1 - Leadership Thank You Letter gb1 Signatures: Dispatcher [employer] EDRohini Mckeon RN RN aa5 Cristina Herzog RN RN Ebony Jarrett Rachael Sanchez MD MD gb1 Corrections: (The following items were deleted from the chart) 12:14 12:14 Head Brain Wo Cont+CT.RAD.BRZ ordered. EDMS EDMS 12:20 12:20 BASIC METABOLIC PANEL+C.LAB.BRZ ordered. EDMS EDMS 12:20 12:20 CBC+H.LAB.BRZ ordered. EDMS EDMS 12:20 12:20 MAGNESIUM+C.LAB.BRZ ordered. EDMS EDMS 12:20 12:20 PROBNP+C.LAB.BRZ ordered. EDMS EDMS 12:20 12:20 PROTIME (+INR)+COAG.LAB.BRZ ordered. EDMS EDMS 12 12:20 Troponin High Sensitivity+C.LAB.BRZ ordered. EDMS EDMS 16:20 15:31 gb1 eb
[2023-12-13] MEDS: NA CHLORIDE 0.9% 1,000 ML IV SCH (16:00)
--- NOTE | 2023-12-13 16:32 | RAD REPORT ---
EXAM: Brain W/Wo Cont CLINICAL INDICATION: SEIZURE. TECHNIQUE: Pre-contrast sagittal and axial T1-w, and axial T2-FLAIR, GRE, and diffusion-w sequences o f the brain with ADC maps. Post-contrast axial fat-saturated T2-w and T1-w, and sagittal volumetric T1-w images of the brain with axial and coronal reformations. Intravenous contrast material was admin istered for the examination.[id number] COMPARISON: Same-day head CT FINDINGS: Parenchyma: No infarction on DWI. No hemorrhage. No mass or mass effect. Scattered foci of T2 hyperin tensity are present in the cerebral white matter that are nonspecific but compatible with mild chronic microvascular ischemic changes. Abnormal Enhancement: None Extra-axial Collection: None Ventricular System: Normal Major Intracranial Flow Voids: Normal Osseous Structures: Expected marrow signal. Included Orbits: Normal Paranasal Sinuses: Predominantly clear Tympanomastoid Cavities: Left mastoid fluid. IMPRESSION: No acute intracranial abnormality. Specifically, no evidence of acute infarct. No abnormal enhancemen t. Mild chronic small vessel ischemic changes.
[2023-12-13 18:56] VITALS: BMI 29.9
[2023-12-13] MEDS: levETIRAcetam 500 MG TAB PO SCH (20:41)
[2023-12-14] MEDS: HYDROCODONE/APAP 5/325 MG TAB PO PRN (03:04)
[2023-12-14] MEDS: ENOXAPARIN 40 MG/0.4 ML SQ SCH (07:57)
[2023-12-14] MEDS: ASPIRIN EC 81 MG TAB PO SCH (07:59)
[2023-12-14 08:43] VITALS: BP 142/76; TEMP 98
--- NOTE | 2023-12-14 09:29 | RAD REPORT ---
EXAMINATION: CAROTID DUPLEX ULTRASOUND CLINICAL INDICATION: tia TECHNIQUE: Real-time grayscale, color flow and spectral Doppler sonographic images were obtained of t he extracranial carotid system using a linear transducer. COMPARISON: 10/21/2023 FINDINGS: RIGHT: Common carotid artery: 61 cm/s Internal carotid artery: 64 cm/s External carotid artery: 85 cm/s Right ICA/CCA ratio: 1.0 Plaque: Mild hard plaque carotid bulb. Vertebral artery Antegrade LEFT: Common carotid artery: 70 cm/s Internal carotid artery: 78 cm/s External carotid artery: 74 cm/s Left ICA/CCA ratio: 1.1 Plaque: Small volume of hard plaque at the bulb. Vertebral artery Antegrade IMPRESSION: No hemodynamically significant stenosis (greater than 50%) within the extracranial internal carotid a rteries. The degrees of stenosis, if any, are quantified according to the consensus statement of the Society o f Radiologists in Ultrasound (SRUS). Please refer to Vince E, Anthony C, [place] G et al. Carotid Artery Stenosis: Curry-Scale and Doppler US Diagnosis--Society of Radiologists in Ultrasound Consensus Conference. Radiology. 2003;229(2):340-6.
[2023-12-14] MEDS: METOPROLOL TAR 50 MG TAB PO SCH (09:39)
[2023-12-14] MEDS: CLOPIDOGREL 75 MG TABLET PO ONE (09:41)
[2023-12-14] MEDS: COLCHICINE 0.6 MG TAB PO SCH (09:41)
[2023-12-14 10:34] LABS: ALT/SGPT 16 U/L (13-56); AST/SGOT 18 U/L (15-37); Albumin 2.6 g/dL (3.4-5.0); Albumin/Globulin Ratio 0.9 (1.1-1.8); Alkaline Phosphatase 71 U/L (45-117); Bilirubin Total 0.4 mg/dL (0.2-1.0); Protein, Total 5.6 g/dL (6.4-8.2); Uric Acid 5.1 mg/dL (2.6-6.0)
[2023-12-14 10:35] LABS: Bilirubin Direct < 0.2 mg/dL (0-0.2); Bilirubin Indirect, Calculated 0.2 mg/dL (0.2-0.8)
[2023-12-14 10:44] VITALS: O2SAT 95
--- NOTE | 2023-12-14 12:49 | SS ---
Date of Discharge: 12/14/2023 Chief Complaint: Left wrist pain. History Of Present Illness: This is an 83-year-old very pleasant female patient who was brought into emergency room yesterday by her daughter with 3 to 4 days history of worsening problem with pain in her left wrist area. Denies any fall injury. No fever, chills, or any other complaints. After newton ent registered in the emergency room, she was waiting in the waiting area and all of a sudden she sta rted to feel like as if she was going to faint and she became unresponsive with her eyes deviated to one side and I am not sure whether she had tonic clonic movement or her body completely got rigid. E [facility] room physician went out to waiting room, quickly assessed her, brought her back and within s hort time after that the patient slowly started turning around and came back to her baseline back to normal self. Workup done in the emergency room was negative for stroke that included CAT scan, CT an giogram, and subsequently MRI of the brain was done, which was also negative for any stroke or acute finding. EEG was also done yesterday, result is pending and Neurology consultation was requested fro marixa Jaeger and the patient was started on Keppra 500 mg b.i.d. after the loading dose was given i n the emergency room yesterday. Overnight, the patient's condition has remained stable. Last night, I was contacted requesting some pain medication for her wrist pain and the patient received 1 dose o f [place] with good pain relief. This morning when I saw her, she denied any other new complaints. Allergies: TO ROSUVASTATIN CAUSING ABNORMAL LIVER FUNCTION TEST AND ATORVASTATIN CAUSING MYALGIA. Medications: The patient was taking atorvastatin 40 mg daily, which was prescribed recently, but she stopped it because of the myalgia problem. Her current medication includes allopurinol 100 mg daily ; vitamin D3 5000 units daily; cholestyramine powder 1 pack mixed with 8 ounce of water, drink it 2 t imes a day; clopidogrel 75 mg daily; famotidine 40 mg daily at bedtime; hydralazine 50 mg 2 times a d ay; Creon before each meal and bedtime; losartan 100 mg daily; metoprolol tartrate 50 mg 2 times a da y; omeprazole 40 mg daily; sertraline 50 mg daily. Review of Systems: Musculoskeletal: As mentioned above. SUPERVISOR IN CHARGE: As mentioned above. All other systems reviewed and negative. Past Medical History: Significant for hypertension, paroxysmal atrial fibrillation, hyperlipidemia, gastroesophageal reflux disease, depression, thrombocytopenia, leg edema, chronic kidney disease stag e 3b, gout, urinary incontinence, abnormal liver function tests, chronic diarrhea, TIA, anemia. 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 Social History: Negative for smoking, use of alcohol, glass of wine daily. Family History: Parents , details unknown. Sister with dementia. Physical Examination: Vital Signs: Height 5 feet 5 inches, weight 180 pounds. Temperature 97, pulse 99, respiratory rate 18, blood pressure 147/79, oxygen saturation 94% on room air. General: Awake, alert, oriented, not in distress. HEENT: Head atraumatic, normocephalic. Conjunctivae nonerythematous. Sclerae white. Mouth, no thr ush or edema noted. Ears/Nose, no mass, lesion, discharge noted. Neck: Supple. No JVD, lymph nodes, bruit, thyromegaly noted. Lungs: Bilateral good equal air entry. Clear to auscultation. No rhonchi. No rales. Heart: Normal heart sounds, no murmur or gallop. Abdomen: Soft, bowel sounds normal. No guarding, rigidity, tenderness, mass, hepatosplenomegaly, dis tention, or bruit noted. Extremities: No leg edema. No calf tenderness. Skin: No rash, ulcer, cellulitis. Lymphatics: No lymph node enlargement in neck, supraclavicular, infraclavicular region. Neuro: No focal neurological deficit. Chest: Unremarkable. External Genitalia: Deferred. Rectal: Deferred. Musculoskeletal: The patient has mild swelling of the left wrist joint with painful range of motion. There is no redness of skin. Laboratory Data: White count 11, hemoglobin 12.9, platelets 173. Triglyceride 79, total cholesterol 117, LDL 56, HDL 45. Initial troponin 20.8, second troponin 19.3, third troponin 24.3. CPK 31. Ye sterday, sodium 141, potassium 4.1, chloride 110, bicarb 27, BUN 15, creatinine 1.13, glucose 125. P roBNP 7295. Troponin yesterday was 23.6. Urinalysis: 1+ blood, 11 to 20 RBC, otherwise negative. Chest x-ray: No acute cardiopulmonary changes. CAT scan of the head: No acute intracranial changes . Left wrist and left hand was negative for any acute changes. Her CT angiogram of the neck was neg ative and no significant flow abnormality. CT angiogram of head was negative and MRI of the brain di d not show any evidence of stroke. Hospital Course: After patient was admitted to the hospital, Neurology consultation was requested. The patient was started on Keppra and plan is to continue Keppra 500 mg 2 times a day. I have discus sed with her regarding possible side effect of Keppra. The patient informed me that she recently sto pped taking atorvastatin because of muscle aches, muscle pain problem, and in the past, she was takin g ezetimibe and thought that it was making her feel tired, but she is willing to go back on it. I di d discuss with her regarding seizure precautions and instructed her that she should not drive car or operate any hazardous machineries and she should not drive car for 6 months from the last episode of seizure and she was made aware of state regulation. She was also advised not to operate any hazardou s machines, not to take any bath and just to take shower, not to get in the bathtub full of water, no t to get into swimming pool, [place], river, ocean or any other open body water. She was advised not to climb ladders. I have called Dr. Jaeger today and discussed details with him and he has given his okay for patient to go home. Medically, patient is stable for discharge. Discharge Medications: Continue all prior home medication except following changes: 1.Stop atorvastatin. 2.Start ezetimibe 10 mg, take 1 tablet by mouth daily. 3.Start levetiracetam 500 mg, take 1 tablet by mouth 2 times a day. 4.Start colchicine 1 tablet by mouth 2 times a day for 1 week. Follow up at my office next week on Saturday or and follow up with Dr. Jaeger in 2 weeks. Final Diagnoses: 1.Seizure, new onset. 2.Acute gouty arthritis, left wrist/left hand. 3.Hypertension. 4.Hyperlipidemia. 5.Paroxysmal atrial fibrillation. 6.Gastroesophageal reflux disease. 7.Chronic kidney disease stage 3b. 8.Thrombocytopenia. 9.Anemia, unspecified. Total Time Spent: 90 minutes that includes review of last office visit record from 12/04/2023, revie w of last hospital admission record from , review of emergency room visit record, communica tion with emergency room provider, communication with neurologist, and performing evaluation and jose carlos gement for this admission. SUSANA/MODL Voice ID: [id number] Report ID: [id number]
[2023-12-14] MEDS ORDERED: HYDRALAZINE HCL 25 MG TABLET PO SCH (21:00)
[2023-12-14] MEDS ORDERED: FAMOTIDINE 20 MG TAB PO SCH (21:00)
[2023-12-14] MEDS ORDERED: ATORVASTATIN 40 MG TAB PO SCH (21:00)
[2023-12-15] MEDS ORDERED: PANTOPRAZOLE 40MG TABLET PO SCH (06:30)
[2023-12-15] MEDS ORDERED: SERTRALINE HCL 50 MG TAB PO SCH (09:00)
[2023-12-15] MEDS ORDERED: allopurinoL 100 MG TAB PO SCH (09:00)
[2023-12-15] MEDS ORDERED: CLOPIDOGREL 75 MG TABLET PO SCH (09:00)
[2023-12-15] MEDS ORDERED: LOSARTAN POTASSIUM 50 MG TABLET PO SCH (10:00)
--- NOTE | 2023-12-16 12:19 | EKG ---
Test Date: 2023-12-13 Test Time: 16:39:57 Diagnostic Sales Specialist: SB MEASUREMENT RESULTS: Intervals: Rate: 80 MI: QRSD: 76 QT: 366 QTc: 422 [place]: P: MI: QRS: -24 T: 36 INTERPRETIVE STATEMENTS: Atrial fibrillation Abnormal ECG Compared to ECG 10/21/2023 13:18:49 ST (T wave) deviation no longer present Electronically Signed On 12-16-23 12:16:05 VISUAL MERCHANDISING DIRECTOR by Bartolo Cheung
== END 2023-12-14 11:42 | disposition home or self-care (01) ==
LOC: ER 10:54 → ERHOLD 16:02 → INTOOBSV 16:02 → 2ND 17:02
PROVIDERS: ADMIT Internal Medicine; ATTEND Internal Medicine
DX: R56.9 Unspecified convulsions (principal); M10.9 Gout, unspecified; M25.532 Pain in left wrist; I10 Essential (primary) hypertension; E78.5 Hyperlipidemia, unspecified; I48.0 Paroxysmal atrial fibrillation; K21.9 Gastro-esophageal reflux disease without esophagitis; N18.32 Chronic kidney disease, stage 3b; D69.6 Thrombocytopenia, unspecified; D64.9 Anemia, unspecified; F32.A Depression, unspecified; Z71.89 Other specified counseling
CPT/HCPCS: 85025; 81001; 80048; 36415; 83735; 82550; 85610; 80061; 82565; 82947 ×3; 80076; 84550; 84484 ×4; 83880; 70450; 70496; 70498; 71045; 73120; 93880; 70553; 96374; 99285; Q9967; A9577; J1953; J1650; J7030; 93005; G0378